=== PATIENT | female | born 1995 | race American Indian/Alaskan Native ===

== ENCOUNTER 2016-10-21 22:18 | Emergency (ER) | payer MEDICAID ==
[2016-10-21] MEDS ORDERED: ATIVAN IM PRN (23:27)
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
[2016-10-21 23:48] LABS: Hemoglobin 12.7 gm/dl (10.1-14.3); White Blood Count 10.6 K/mm3 (4.5-11.0)
[2016-10-22 00:05] LABS: Alanine Aminotransferase 12 units/L (7-56); Albumin/Globulin Ratio 1.1 %; Alkaline Phosphatase 90 units/L (35-129); Anion Gap 19 mmol/L; Bilirubin,Total 0.3 mg/dL (0.1-1.2); Blood Urea Nitrogen 10 mg/dL (7-17); Carbon Dioxide 21 mmol/L (22-30); Chloride 101.5 mmol/L (98-107); Glucose 143 mg/dL (65-100); Potassium 4.4 mmol/L (3.6-5.0); Sodium 137 mmol/L (137-145); Total Protein 7.5 g/dL (6.3-8.2)
[2016-10-22 00:26] LABS: Hematocrit 39.8 % (30.3-42.9); Mean Corpuscular HGB Conc 31 % (30-34); Mean Corpuscular Hemoglobin 30 pg (28-32); Mean Corpuscular Volume 96 fl (79-97); Platelet Count 257 K/mm3 (140-440); Red Blood Count 4.17 M/mm3 (3.65-5.03); Red Cell Distribution Width 12.4 % (13.2-15.2)
[2016-10-22 00:31] LABS: Urine Drugs of Abuse Note Disclamer
[2016-10-22 01:15] LABS: Bacteria,Urine 1+ /HPF (Negative); Bilirubin,Urine NEG (Negative); Blood,Urine MOD (Negative); Ketones,Urine NEG (Negative); Leukocyte Esterase,Urine SM (Negative); Mucus,Urine FEW /HPF; Nitrite,Urine NEG (Negative); Protein,Urine <15 mg/dL mg/dL (Negative); Urobilinogen,Urine < 2.0 mg/dL (<2.0)
[2016-10-22] MEDS ORDERED: PROVENTIL IH PRN (03:04)
[2016-10-22] MEDS ORDERED: NAPROSYN PO PRN (03:04)
[2016-10-22] MEDS ORDERED: HALDOL PO SCH (10:00)
[2016-10-22] MEDS ORDERED: NON-FORMULARY (Abacavir/Dolutegravir/Lamivudi [Triumeq Tablet] 1 EACH) PO SCH (10:00)
--- NOTE | 2016-10-22 12:42 | Consultation ---
History of Present Illness - Reason for Consult Consult date: 10/22/16 Reason for consult: suicide attempt - Chief Complaint Chief complaint: suicide attempt - History of Present Psychiatric Illness This is a 26 year old female with PPH of MDD who presents to the ER after a suicide attempt via OD on 10-12 packets of [place] [employer]. She has both acute and chronic social stressors that have exacerbated her current condition. Current symptoms include: anhedonia, crying spells, social withdrawal, SI, low/ sad moods, and a sense of hopelessness. Medications and Allergies Allergies Allergy/AdvReac Type Severity Reaction Status Date / Time Fish Containing Products Allergy Rash Verified 09/19/14 09:38 beans Allergy Rash Uncoded 09/19/14 09:38 Home Medications Medication Instructions Recorded Confirmed Last Taken Type ALBUTEROL NEB's [Proventil] 90 mcg IH Q6H PRN 02/19/16 10/22/16 10/21/16 History Abacavir/Dolutegravir/Lamivudi 1 each PO QDAY 02/19/16 10/22/16 10/21/16 History [Triumeq Tablet] Haloperidol [Haldol] 10 mg PO DAILY 05/31/16 10/22/16 10/22/16 History Prazosin [Minipress] 3 mg PO HS 05/31/16 10/22/16 10/21/16 History Naproxen [Naprosyn TAB] 500 mg PO BID #20 tablet 06/08/16 10/22/16 10/22/16 Rx Active Meds: Active Medications Albuterol (Proventil) 0.09 mg IH Q6H PRN PRN Reason: Wheezing Haloperidol (Haldol) 10 mg PO DAILY [facility] Last Admin: 10/22/16 10:27 Dose: 10 mg Lorazepam (Ativan) 2 mg IM Q4HR PRN PRN Reason: Agitation Miscellaneous Medication (Abacavir/Dolutegravir/Lamivudi [Triumeq Tablet]) 1 each PO QDAY [facility] Naproxen (Naprosyn) 500 mg PO BID PRN PRN Reason: Pain Prazosin HCl (Minipress) 3 mg PO [facility] Mental Status Exam - Vital signs Last Vital Signs Temp 98.6 F 10/21/16 23:26 Pulse 85 10/21/16 23:26 Resp 16 10/21/16 23:26 BP 110/73 10/21/16 23:26 Pulse Ox - Exam Orientation: time, place Affect: depressed, anxious Mood: hopeless, anxious Thought Process: Intact Perceptions: none Speech: slow Concentration: distractible Motor activity: lethargic Level of consciousness: sedated Memory: Intact Sleep Symptoms: Insomnia Appetite: decreased Interaction: guarded Results Result Diagrams: 10/21/16 23:37 10/21/16 23:37 Abnormal lab results 10/21/16 10/21/16 10/21/16 Range/Units 00:15 23:37 23:37 RDW (13.2-15.2) % Carbon Dioxide 21 L (22-30) mmol/L Creatinine 0.5 L (0.7-1.2) mg/dL Glucose 143 H (65-100) mg/dL Urine WBC (Auto) 10.0 H (0.0-6.0) /HPF Salicylates < 0.3 L (2.8-20.0) mg/dL 10/21/16 Range/Units 23:37 RDW 12.4 L (13.2-15.2) % Carbon Dioxide (22-30) mmol/L Creatinine (0.7-1.2) mg/dL Glucose (65-100) mg/dL Urine WBC (Auto) (0.0-6.0) /HPF Salicylates (2.8-20.0) mg/dL All other labs normal. Assessment and Plan Assessment and plan: This salicylate and acetaminophen levels were reviewed and they were not elevated. UDS is negative for other illicit substances. Renal functioning is not compromised. She remains withdrawn and depressed. Recommendation: - continue 1013 - transfer to inpatient psychiatric facility for treatment of MDD, severe recurrent with a recent SA via OD
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
[2016-10-22 20:53] VITALS: BP 115/61
[2016-10-22] MEDS ORDERED: MINIPRESS PO SCH (22:00)
== END 2016-10-23 04:24 ==
LOC: ED 22:18
DX: R45.851 Suicidal ideations (principal); R44.0 Auditory hallucinations; F32.9 Major depressive disorder, single episode, unspecified; J45.909 Unspecified asthma, uncomplicated; F20.9 Schizophrenia, unspecified; F31.9 Bipolar disorder, unspecified; F12.10 Cannabis abuse, uncomplicated; Z91.013 Allergy to seafood; Z91.018 Allergy to other foods; F17.200 Nicotine dependence, unspecified, uncomplicated; Z21 Asymptomatic human immunodeficiency virus [HIV] infection status
CPT/HCPCS: 36415; 80053; 80307; 81001; 81025; 82550; 85027; 99285; G0480; 80320

== ENCOUNTER 2017-04-25 22:09 | Emergency (ER) | payer MEDICAID ==
[2017-04-25 23:15] LABS: Basophils % (Auto) 0.3 % (0.0-1.8); Eosinophils % (Auto) 0.4 % (0.0-4.3); Hematocrit 38.4 % (30.3-42.9); Hemoglobin 12.9 gm/dl (10.1-14.3); Mean Corpuscular HGB Conc 33 % (30-34); Mean Corpuscular Hemoglobin 31 pg (28-32); Mean Corpuscular Volume 92 fl (79-97); Platelet Count 173 K/mm3 (140-440); Red Blood Count 4.16 M/mm3 (3.65-5.03); Red Cell Distribution Width 13.3 % (13.2-15.2); White Blood Count 8.2 K/mm3 (4.5-11.0)
[2017-04-25 23:38] LABS: Alanine Aminotransferase 10 units/L (7-56); Albumin 4.3 g/dL (3.9-5); Albumin/Globulin Ratio 1.2 %; Alkaline Phosphatase 69 units/L (35-129); Anion Gap 19 mmol/L; Blood Urea Nitrogen 6 mg/dL (7-17); Calcium 9.3 mg/dL (8.4-10.2); Carbon Dioxide 22 mmol/L (22-30); Chloride 104.4 mmol/L (98-107); Glucose 122 mg/dL (65-100); Potassium 3.3 mmol/L (3.6-5.0); Sodium 142 mmol/L (137-145)
[2017-04-25 23:45] LABS: Bilirubin,Direct < 0.2 mg/dL (0-0.2); Bilirubin,Indirect 0.3 mg/dL
[2017-04-26 00:41] LABS: Bacteria,Urine 1+ /HPF (Negative); Bilirubin,Urine NEG (Negative); Blood,Urine NEG (Negative); Ketones,Urine NEG (Negative); Leukocyte Esterase,Urine SM (Negative); Mucus,Urine 2+ /HPF; Nitrite,Urine NEG (Negative); Protein,Urine <15 mg/dL mg/dL (Negative)
--- NOTE | 2017-04-26 15:58 | Emergency Department Report ---
ED General Adult HPI - General Chief complaint: Rectal Pain Stated complaint: RECTAL PAIN Time Seen by Provider: 04/26/17 15:40 Source: patient Mode of arrival: Ambulatory Limitations: No Limitations - History of Present Illness Initial comments: Patient has a history of HIV. She states that she has never had any rectal infection in the past. She also has a history of schizophrenia and bipolar sorter. She denies any recent fever. She states that over the past few days she seen a yellow discharge from her rectum. She denies any rash or maggie mass or abscess. He does not complain of any vaginal discharge. -: Gradual, days(s) Location: buttocks (rectal) Radiation: non-radiation Severity scale (0 -10): 0 Quality: aching Consistency: intermittent, now resolved Improves with: none Worsens with: none Associated Symptoms: denies other symptoms Treatments Prior to Arrival: none - Related Data Home Medications Medication Instructions Recorded Confirmed Last Taken ALBUTEROL NEB's [Proventil] 90 mcg IH Q6H PRN 02/19/16 10/22/16 10/21/16 Abacavir/Dolutegravir/Lamivudi 1 each PO QDAY 02/19/16 10/22/16 10/21/16 [Triumeq Tablet] Haloperidol [Haldol] 10 mg PO DAILY 05/31/16 10/22/16 10/22/16 Prazosin [Minipress] 3 mg PO HS 05/31/16 10/22/16 10/21/16 Previous Rx's Medication Instructions Recorded Last Taken Type Naproxen [Naprosyn TAB] 500 mg PO BID #20 tablet 06/08/16 10/22/16 Rx Sulfamethoxazole/Trimethoprim 1 each PO BID #14 tablet 04/26/17 Unknown Rx [Bactrim DS TAB] traMADol [Ultram] 50 mg PO Q6HR PRN #10 tablet 04/26/17 Unknown Rx Allergies Allergy/AdvReac Type Severity Reaction Status Date / Time Fish Containing Products Allergy Rash Verified 09/19/14 09:38 beans Allergy Rash Uncoded 09/19/14 09:38 ED Review of Systems ROS: Stated complaint: RECTAL PAIN Other details as noted in HPI Constitutional: denies: chills, fever Eyes: denies: eye pain, eye discharge, vision change ENT: denies: ear pain, throat pain Respiratory: denies: cough, shortness of breath, wheezing Cardiovascular: denies: chest pain, palpitations Endocrine: no symptoms reported Gastrointestinal: as per HPI. denies: abdominal pain, nausea, diarrhea (denies diarrhea) Genitourinary: denies: urgency, dysuria, discharge Musculoskeletal: denies: back pain, joint swelling, arthralgia Skin: denies: rash, lesions Neurological: denies: headache, weakness, paresthesias Psychiatric: denies: anxiety, depression Hematological/Lymphatic: denies: easy bleeding, easy bruising ED Past Medical Hx - Past Medical History Hx Psychiatric Treatment: Yes (multiple IP stays, ANXIETY; schizophrenia; bipolar; PTSD; depression) Hx Asthma: Yes Hx HIV: Yes Additional medical history: Tetanus up to date - Surgical History Additional Surgical History: nexplanon at 18 years old ( control) - Social History Smoking Status: Former Smoker Substance Use Type: None - Medications Home Medications: Home Medications Medication Instructions Recorded Confirmed Last Taken Type ALBUTEROL NEB's [Proventil] 90 mcg IH Q6H PRN 02/19/16 10/22/16 10/21/16 History Abacavir/Dolutegravir/Lamivudi 1 each PO QDAY 02/19/16 10/22/16 10/21/16 History [Triumeq Tablet] Haloperidol [Haldol] 10 mg PO DAILY 05/31/16 10/22/16 10/22/16 History Prazosin [Minipress] 3 mg PO HS 05/31/16 10/22/16 10/21/16 History Naproxen [Naprosyn TAB] 500 mg PO BID #20 tablet 06/08/16 10/22/16 10/22/16 Rx Sulfamethoxazole/Trimethoprim 1 each PO BID #14 tablet 04/26/17 Unknown Rx [Bactrim DS TAB] traMADol [Ultram] 50 mg PO Q6HR PRN #10 tablet 04/26/17 Unknown Rx ED Physical Exam - General Limitations: No Limitations General appearance: alert, in no apparent distress - Head Head exam: Present: atraumatic, normocephalic - Eye Eye exam: Present: normal appearance. Absent: scleral icterus - ENT ENT exam: Present: normal exam, mucous membranes moist - Neck Neck exam: Present: normal inspection - Respiratory Respiratory exam: Present: normal lung sounds bilaterally. Absent: respiratory distress - Cardiovascular Cardiovascular Exam: Present: regular rate, normal rhythm. Absent: systolic murmur, diastolic murmur, rubs, gallop - GI/Abdominal GI/Abdominal exam: Present: soft, normal bowel sounds. Absent: distended, tenderness, guarding, rebound, rigid - Rectal Rectal exam: Present: normal inspection, normal rectal tone, other (didn't see any maggie evidence of infection mild tenderness on digital) - Extremities Exam Extremities exam: Present: normal inspection - Back Exam Back exam: Present: normal inspection - Neurological Exam Neurological exam: Present: alert, oriented X3, CN II-XII intact. Absent: motor sensory deficit - Psychiatric Psychiatric exam: Present: normal affect, normal mood - Skin Skin exam: Present: warm, dry, intact, normal color. Absent: rash ED Course Vital Signs 04/25/17 22:29 Temperature 98.9 F Pulse Rate 119 H Respiratory 18 Rate Blood Pressure 138/92 O2 Sat by Pulse 97 Oximetry - Reevaluation(s) Reevaluation #1: We'll be treated empirically for proctitis. Cultures sent 04/26/17 16:38 04/26/17 16:38 ED Medical Decision Making - Lab Data Result diagrams: 04/25/17 22:49 04/25/17 22:49 Laboratory Results - last 24 hr 04/25/17 04/25/17 04/25/17 22:49 22:49 22:49 WBC 8.2 RBC 4.16 Hgb 12.9 Hct 38.4 MCV 92 MCH 31 MCHC 33 RDW 13.3 Plt Count 173 Lymph % (Auto) 28.7 Iron % (Auto) 8.3 H Eos % (Auto) 0.4 Baso % (Auto) 0.3 Lymph # 2.4 Iron # 0.7 Eos # 0.0 Baso # 0.0 Seg Neutrophils % 62.3 Seg Neutrophils # 5.1 Sodium 142 Potassium 3.3 L Chloride 104.4 Carbon Dioxide 22 Anion Gap 19 BUN 6 L Creatinine 0.4 L Estimated GFR > 60 BUN/Creatinine Ratio 15.00 Glucose 122 H Lactic Acid 1.30 Calcium 9.3 Total Bilirubin 0.50 Direct Bilirubin < 0.2 Indirect Bilirubin 0.3 AST 14 ALT 10 Alkaline Phosphatase 69 Total Protein 8.0 Albumin 4.3 Albumin/Globulin Ratio 1.2 Urine Color Urine Turbidity Urine pH Ur Specific [place] Urine Protein Urine Glucose (UA) Urine Ketones Urine Blood Urine Nitrite Urine Bilirubin Urine Urobilinogen Ur Leukocyte Esterase Urine WBC (Auto) Urine RBC (Auto) U Epithel Cells (Auto) Urine Bacteria (Auto) Urine Mucus Urine HCG, Qual 04/25/17 23:00 WBC RBC Hgb Hct MCV MCH MCHC RDW Plt Count Lymph % (Auto) Iron % (Auto) Eos % (Auto) Baso % (Auto) Lymph # Iron # Eos # Baso # Seg Neutrophils % Seg Neutrophils # Sodium Potassium Chloride Carbon Dioxide Anion Gap BUN Creatinine Estimated GFR BUN/Creatinine Ratio Glucose Lactic Acid Calcium Total Bilirubin Direct Bilirubin Indirect Bilirubin AST ALT Alkaline Phosphatase Total Protein Albumin Albumin/Globulin Ratio Urine Color Yellow Urine Turbidity Clear Urine pH 7.0 Ur Specific [place] 1.019 Urine Protein <15 mg/dl Urine Glucose (UA) Neg Urine Ketones Neg Urine Blood Neg Urine Nitrite Neg Urine Bilirubin Neg Urine Urobilinogen 2.0 Ur Leukocyte Esterase Sm Urine WBC (Auto) 6.0 Urine RBC (Auto) 1.0 U Epithel Cells (Auto) 3.0 Urine Bacteria (Auto) 1+ Urine Mucus 2+ Urine HCG, Qual Negative Critical care attestation.: If time is entered above; I have spent that time in minutes in the direct care of this critically ill patient, excluding procedure time. ED Disposition Clinical Impression: History of schizophrenia, Proctitis, HIV positive Disposition: - TO HOME OR SELFCARE Is pt being admited?: No Does the pt Need Aspirin: No Condition: Stable Instructions: Proctitis (ED) Additional Instructions: Follow-up with your Infectious disease clinic. Return any acute change or problem or if you have any fever or other significant symptoms. Prescriptions: Sulfamethoxazole/Trimethoprim [Bactrim DS TAB] 1 each PO BID #14 tablet traMADol [Ultram] 50 mg PO Q6HR PRN #10 tablet PRN Reason: Pain Referrals: PRIMARY CARE, [Primary Care Provider] - 3-5 Days usual, infectious disease clinic [Other] - 2-3 Days Time of Disposition: 16:43
[2017-04-26] MEDS ORDERED: ROCEPHIN/NS 1 GM/50 ML 1 GM/50 ML BAG IV ONE (16:39)
[2017-04-26] MEDS ORDERED: NACL 0.9% 1000 ML 1,000 ML IV ONE (16:39)
[2017-04-26 17:41] VITALS: BP 118/65
== END 2017-04-26 18:43 | disposition home or self-care (01) ==
LOC: ED 22:09
DX: K62.89 Other specified diseases of anus and rectum (principal); F20.9 Schizophrenia, unspecified; F41.9 Anxiety disorder, unspecified; J45.909 Unspecified asthma, uncomplicated; Z87.891 Personal history of nicotine dependence; Z91.013 Allergy to seafood
CPT/HCPCS: 36415; 80048; 80074; 81001; 81025; 82140; 85025; 87040; 87591; 96365; 99283; J0696; J7030

== ENCOUNTER 2017-06-29 12:21 | Emergency (ER) | payer MEDICAID ==
[2017-06-29 12:56] LABS: Urine Drugs of Abuse Note Disclamer
[2017-06-29 13:09] LABS: Bilirubin,Urine NEG (Negative); Blood,Urine NEG (Negative); Ketones,Urine NEG (Negative); Leukocyte Esterase,Urine NEG (Negative); Mucus,Urine 2+ /HPF; Nitrite,Urine NEG (Negative); Protein,Urine <15 mg/dL mg/dL (Negative)
[2017-06-29 13:51] LABS: Basophils % (Auto) 0.3 % (0.0-1.8); Eosinophils % (Auto) 1.8 % (0.0-4.3); Hematocrit 36.2 % (30.3-42.9); Hemoglobin 11.9 gm/dl (10.1-14.3); Mean Corpuscular HGB Conc 33 % (30-34); Mean Corpuscular Hemoglobin 32 pg (28-32); Mean Corpuscular Volume 97 fl (79-97); Platelet Count 220 K/mm3 (140-440); Red Blood Count 3.74 M/mm3 (3.65-5.03); Red Cell Distribution Width 12.4 % (13.2-15.2); White Blood Count 8.6 K/mm3 (4.5-11.0)
--- NOTE | 2017-06-29 13:53 | Emergency Department Report ---
ED General Adult HPI - General Chief complaint: Overdose Stated complaint: TOOK 10 500MG OF TYLENOL/6 ASPIRIN Time Seen by Provider: 06/29/17 13:32 Source: patient, EMS (ems notes not available at time of chart dictation), RN notes reviewed, old records reviewed Mode of arrival: Ambulatory Limitations: No Limitations - History of Present Illness Initial comments: This is a 22-year-old female. Primary care doctor is Dr. De Paz and her psychiatrist is Dr. Bosch Past medical history includes bipolar disorder, PTSD, anxiety, asthma, schizophrenia and HIV. Patient is sent to the ER for medical clearance after overdose. Patient reports that her chest and right knee were hurting her last night. Her chest pain started at 4:00 yesterday afternoon. It radiates to the back. She reports that it feels like "someone stepping on it." The chest pain does not radiate anywhere. There is no vomiting or diaphoresis. There is no posterior leg pain. Patient reports having a nexplanon device for contraception. She also complains of chronic right-sided knee pain. The knee pain is secondary to "not having any cartilage in it." Patient reports that at 3 to 4:00 AM, she took 10 tablets of Tylenol, 500 mg. She also reports taking 6 tablets of aspirin, 324 mg. She is adamant that there were no other coingestions, that she was not trying to hurt herself or kill herself. She reports that she was taking these medications for chest pain and right knee pain. She reports that she was seen by her director of casework earlier on today, and was sent to ER for medical clearance, as she then began to have abdominal pain. Abdominal pain was periumbilical, epigastric, in the right lower quadrant. Patient denies irritative and obstructive urinary symptoms. She reports "I am having sex, and I am worried than I'm ." -: Gradual Location: chest, abdomen, right, lower extremity Radiation: non-radiation Severity scale (0 -10): 1 Quality: aching Consistency: intermittent Improves with: none Worsens with: none Associated Symptoms: chest pain - Related Data Home Medications Medication Instructions Recorded Confirmed Last Taken ALBUTEROL NEB's [Proventil] 90 mcg IH Q6H PRN 02/19/16 10/22/16 10/21/16 Abacavir/Dolutegravir/Lamivudi 1 each PO QDAY 02/19/16 10/22/16 10/21/16 [Triumeq Tablet] Haloperidol [Haldol] 10 mg PO DAILY 05/31/16 10/22/16 10/22/16 Prazosin [Minipress] 3 mg PO HS 05/31/16 10/22/16 10/21/16 Previous Rx's Medication Instructions Recorded Last Taken Type Naproxen [Naprosyn TAB] 500 mg PO BID #20 tablet 06/08/16 10/22/16 Rx Sulfamethoxazole/Trimethoprim 1 each PO BID #14 tablet 04/26/17 Unknown Rx [Bactrim DS TAB] traMADol [Ultram] 50 mg PO Q6HR PRN #10 tablet 04/26/17 Unknown Rx Allergies Allergy/AdvReac Type Severity Reaction Status Date / Time Fish Containing Products Allergy Rash Verified 09/19/14 09:38 beans Allergy Rash Uncoded 09/19/14 09:38 ED Review of Systems ROS: Stated complaint: TOOK 10 500MG OF TYLENOL/6 ASPIRIN Other details as noted in HPI Constitutional: denies: fever Eyes: denies: vision change ENT: denies: epistaxis Respiratory: denies: cough Cardiovascular: chest pain Gastrointestinal: abdominal pain Genitourinary: denies: dysuria Musculoskeletal: arthralgia, myalgia Skin: denies: lesions Neurological: denies: headache Psychiatric: denies: homicidal thoughts, suicidal thoughts ED Past Medical Hx - Past Medical History Previous Medical History?: Yes Hx Hypertension: No Hx CVA: No Hx Heart Attack/AMI: No Hx Congestive Heart Failure: No Hx Diabetes: No Hx Deep Vein Thrombosis: No Hx Pulmonary Embolism: No Hx GERD: No Hx Liver Disease: No Hx Renal Disease: No Hx of Cancer: No Hx Sickle Cell Disease: No Hx Arthritis: No Hx Headaches / Migraines: No Hx Seizures: No Hx Kidney Stones: No Hx Psychiatric Treatment: Yes (multiple IP stays, ANXIETY; schizophrenia; bipolar; PTSD; depression) Hx Asthma: Yes Hx COPD: No Hx Tuberculosis: No Hx Dementia: No Hx HIV: Yes Additional medical history: Tetanus up to date - Surgical History Past Surgical History?: Yes Hx Coronary Stent: No Hx Open Heart Surgery: No Hx Pacemaker: No Hx Internal Defibrillator: No Hx Cholecystectomy: No Hx Appendectomy: No Hx Breast Surgery: No Additional Surgical History: nexplanon at 18 years old ( control) - Social History Smoking Status: Current Every Day Smoker Substance Use Type: Marijuana - Medications Home Medications: Home Medications Medication Instructions Recorded Confirmed Last Taken Type ALBUTEROL NEB's [Proventil] 90 mcg IH Q6H PRN 02/19/16 10/22/16 10/21/16 History Abacavir/Dolutegravir/Lamivudi 1 each PO QDAY 02/19/16 10/22/16 10/21/16 History [Triumeq Tablet] Haloperidol [Haldol] 10 mg PO DAILY 05/31/16 10/22/16 10/22/16 History Prazosin [Minipress] 3 mg PO HS 05/31/16 10/22/16 10/21/16 History Naproxen [Naprosyn TAB] 500 mg PO BID #20 tablet 06/08/16 10/22/16 10/22/16 Rx Sulfamethoxazole/Trimethoprim 1 each PO BID #14 tablet 04/26/17 Unknown Rx [Bactrim DS TAB] traMADol [Ultram] 50 mg PO Q6HR PRN #10 tablet 04/26/17 Unknown Rx ED Physical Exam - General Limitations: No Limitations General appearance: alert, in no apparent distress - Head Head exam: Present: atraumatic, normocephalic - Eye Eye exam: Present: normal appearance, EOMI. Absent: nystagmus - ENT ENT exam: Present: normal exam, normal orophraynx, mucous membranes moist, normal external ear exam - Neck Neck exam: Present: normal inspection, full ROM - Respiratory Respiratory exam: Present: normal lung sounds bilaterally. Absent: respiratory distress, wheezes, rales, rhonchi, stridor, chest wall tenderness, accessory muscle use, decreased breath sounds, prolonged expiratory - Cardiovascular Cardiovascular Exam: Present: regular rate, normal rhythm, normal heart sounds. Absent: bradycardia, tachycardia, irregular rhythm, systolic murmur, diastolic murmur, rubs, gallop - GI/Abdominal GI/Abdominal exam: Present: soft, tenderness, normal bowel sounds, other (there is right lower quadrant tenderness to deep palpation.). Absent: distended, guarding, rebound, rigid, pulsatile mass - Extremities Exam Extremities exam: Present: normal inspection, full ROM, normal capillary refill. Absent: pedal edema, joint swelling, calf tenderness - Back Exam Back exam: Present: normal inspection, full ROM. Absent: tenderness, CVA tenderness (R), CVA tenderness (L), muscle spasm, paraspinal tenderness, vertebral tenderness - Neurological Exam Neurological exam: Present: alert, oriented X3, normal gait, other (Extraocular movements intact. Tongue midline. No facial droop. Facial sensation intact to light touch in the V1, V2, V3 distribution bilaterally. 5 and 5 strength in 4 extremities.. Sensation is intact to light touch in 4 extremities.). Absent : motor sensory deficit - Psychiatric Psychiatric exam: Present: normal affect, normal mood. Absent: homicidal ideation, suicidal ideation - Skin Skin exam: Present: warm, dry, intact, normal color. Absent: rash ED Course Vital Signs 06/29/17 06/29/17 06/29/17 12:26 14:19 14:24 Temperature 98.1 F 98.3 F Pulse Rate 69 60 65 Respiratory 18 16 18 Rate Blood Pressure 112/64 Blood Pressure 112/64 109/59 [Right] O2 Sat by Pulse 100 99 100 Oximetry 06/29/17 14:25 Temperature Pulse Rate Respiratory 16 Rate Blood Pressure Blood Pressure [Right] O2 Sat by Pulse 100 Oximetry - Reevaluation(s) Reevaluation #1: 06/29/17 14:08 Differential diagnosis, including but not limited to: Acute coronary syndrome, pneumonia, pulmonary embolus, costochondritis, pneumothorax, appendicitis, renal colic, ovarian cyst, urinary tract infection, overdose Assessment and plan: 22-year-old female sent to the ER for medical clearance after overdose, reports that she is not homicidal or suicidal, she is not having hallucinations, she is currently sober at this time, with a GCS of 15, and anion score of 0. There is no indication for 1013 at this time. Presented more than one hour after ingestion (ingestion was 11 hours ago), patient is therefore not a charcoal candidate at this time. Chest pain is atypical, present for almost 24 hours, low risk by MIRTA score, low risk by heart score, low risk by well's criteria, d-dimer pending, patient' s only risk factor for thromboembolic disease is NEXPLANON. Serum toxicology pending at this time. X-ray of the chest is pending at this time. We will consult mental health follow in conjunction. Reevaluation #2: 06/29/17 15:53 Vital signs remained stable. Repeat EKG unremarkable and unchanged. X-ray of the chest is negative. Patient found to be not , d-dimer is negative, no tachycardia or hypoxia. Nursing staff contacted the [facility] in the made the following recommendations: " Per Jo at [facility] [facility], pt does not need treatment for Acetaminophen, but need repeat on Aspirin level and check liver enzyme, MD Serrano informed." Liver enzymes pending, repeat aspirin level is pending. Repeat troponin is pending. CT scan of the abdomen and pelvis is pending. Patient is also seen in conjunction with crisis and mental health, and they recommended 1013 because the patient has recently overdosed. Reevaluation #3: 06/29/17 16:[address] scan of the abdomen and pelvis is negative. Repeat aspirin level is decreasing. Reevaluation #4: 06/29/17 20:[address] scan of the abdomen and pelvis negative. Case rediscussed with the [facility], and as per nursing documentation: "Per Jo at [facility], pt need no treatment since she is asymptomatic, and liver enzymes are normal " At this point in time, the patient is medically suitable to be seen, consult today and evaluated by psychiatry, and admitted to the psychiatric service if necessary. The crisis team is informed Abdomen soft on repeat examination. The patient appears to be no distress at this time, vital signs are stable. 06/29/17 20:01 ED Medical Decision Making - Lab Data Result diagrams: 06/29/17 13:39 06/29/17 13:39 Vital Signs 06/29/17 12:26 Temperature 98.1 F Pulse Rate 69 Respiratory 18 Rate Blood Pressure 112/64 Blood Pressure 112/64 [Right] O2 Sat by Pulse 100 Oximetry Lab Results 06/29/17 06/29/17 06/29/17 Range/Units 12:45 12:45 12:45 WBC (4.5-11.0) K/mm3 RBC (3.65-5.03) M/mm3 Hgb (10.1-14.3) gm/dl Hct (30.3-42.9) % MCV (79-97) fl MCH (28-32) pg MCHC (30-34) % RDW (13.2-15.2) % Plt Count (140-440) K/mm3 Lymph % (Auto) (13.4-35.0) % [place] % (Auto) (0.0-7.3) % Eos % (Auto) (0.0-4.3) % Baso % (Auto) (0.0-1.8) % Lymph # (1.2-5.4) K/mm3 [place] # (0.0-0.8) K/mm3 Eos # (0.0-0.4) K/mm3 Baso # (0.0-0.1) K/mm3 Seg Neutrophils % (40.0-70.0) % Seg Neutrophils # (1.8-7.7) K/mm3 Sodium (137-145) mmol/L Potassium (3.6-5.0) mmol/L Chloride (98-107) mmol/L Carbon Dioxide (22-30) mmol/L Anion Gap mmol/L BUN (7-17) mg/dL Creatinine (0.7-1.2) mg/dL Estimated GFR ml/min BUN/Creatinine Ratio % Glucose (65-100) mg/dL Calcium (8.4-10.2) mg/dL Urine Color Yellow (Yellow) Urine Turbidity Clear (Clear) Urine pH 5.0 (5.0-7.0) Ur Specific [place] 1.036 H (1.003-1.030) Urine Protein <15 mg/dl (Negative) mg/dL Urine Glucose (UA) Neg (Negative) mg/dL Urine Ketones Neg (Negative) mg/dL Urine Blood Neg (Negative) Urine Nitrite Neg (Negative) Urine Bilirubin Neg (Negative) Urine Urobilinogen 2.0 (<2.0) mg/dL Ur Leukocyte Esterase Neg (Negative) Urine WBC (Auto) 1.0 (0.0-6.0) /HPF Urine RBC (Auto) 2.0 (0.0-6.0) /HPF U Epithel Cells (Auto) 1.0 (0-13.0) /HPF Urine Mucus 2+ /HPF Urine HCG, Qual Negative (Negative) Urine Opiates Screen Presumptive negative Urine Methadone Screen Presumptive negative Ur Barbiturates Screen Presumptive negative Ur Phencyclidine Scrn Presumptive negative Ur Amphetamines Screen Presumptive negative U Benzodiazepines Scrn Presumptive negative Urine Cocaine Screen Presumptive negative U Marijuana (THC) Screen Presumptive negative Drugs of Abuse Note Disclamer Plasma/Serum Alcohol (0-0.07) gm% 06/29/17 06/29/17 06/29/17 Range/Units 13:39 13:39 13:39 WBC 8.6 (4.5-11.0) K/mm3 RBC 3.74 (3.65-5.03) M/mm3 Hgb 11.9 (10.1-14.3) gm/dl Hct 36.2 (30.3-42.9) % MCV 97 (79-97) fl MCH 32 (28-32) pg MCHC 33 (30-34) % RDW 12.4 L (13.2-15.2) % Plt Count 220 (140-440) K/mm3 Lymph % (Auto) 35.4 H (13.4-35.0) % [place] % (Auto) 10.2 H (0.0-7.3) % Eos % (Auto) 1.8 (0.0-4.3) % Baso % (Auto) 0.3 (0.0-1.8) % Lymph # 3.0 (1.2-5.4) K/mm3 [place] # 0.9 H (0.0-0.8) K/mm3 Eos # 0.2 (0.0-0.4) K/mm3 Baso # 0.0 (0.0-0.1) K/mm3 Seg Neutrophils % 52.3 (40.0-70.0) % Seg Neutrophils # 4.5 (1.8-7.7) K/mm3 Sodium 142 (137-145) mmol/L Potassium 3.7 (3.6-5.0) mmol/L Chloride 105.8 (98-107) mmol/L Carbon Dioxide 25 (22-30) mmol/L Anion Gap 15 mmol/L BUN 8 (7-17) mg/dL Creatinine 0.5 L (0.7-1.2) mg/dL Estimated GFR > 60 ml/min BUN/Creatinine Ratio 16 % Glucose 78 (65-100) mg/dL Calcium 8.8 (8.4-10.2) mg/dL Urine Color (Yellow) Urine Turbidity (Clear) Urine pH (5.0-7.0) Ur Specific [place] (1.003-1.030) Urine Protein (Negative) mg/dL Urine Glucose (UA) (Negative) mg/dL Urine Ketones (Negative) mg/dL Urine Blood (Negative) Urine Nitrite (Negative) Urine Bilirubin (Negative) Urine Urobilinogen (<2.0) mg/dL Ur Leukocyte Esterase (Negative) Urine WBC (Auto) (0.0-6.0) /HPF Urine RBC (Auto) (0.0-6.0) /HPF U Epithel Cells (Auto) (0-13.0) /HPF Urine Mucus /HPF Urine HCG, Qual (Negative) Urine Opiates Screen Urine Methadone Screen Ur Barbiturates Screen Ur Phencyclidine Scrn Ur Amphetamines Screen U Benzodiazepines Scrn Urine Cocaine Screen U Marijuana (THC) Screen Drugs of Abuse Note Plasma/Serum Alcohol < 0.01 (0-0.07) gm% - EKG Data -: EKG Interpreted by Me - EKG Data 06/29/17 14:10 EKG #1: Normal sinus, 60 bpm, normal intervals, normal axis, not morphologically consistent with ST elevation myocardial infarction. - Radiology Data Radiology results: pending, report reviewed, image reviewed X-ray the chest is negative for acute disease CT scan of the abdomen and pelvis is pending. CT scan of the abdomen and pelvis is negative for acute disease. Critical care attestation.: If time is entered above; I have spent that time in minutes in the direct care of this critically ill patient, excluding procedure time. ED Disposition Clinical Impression: Medical clearance for psychiatric admission, Overdose, Abdominal pain Disposition: [id number] PSY HOSP/PSY UNIT Is pt being admited?: No Does the pt Need Aspirin: No Condition: Good Referrals: PRIMARY CARE, [Primary Care Provider] - 3-5 Days
[2017-06-29 14:05] LABS: Anion Gap 15 mmol/L; BUN/Creatinine Ratio 16; Blood Urea Nitrogen 8 mg/dL (7-17); Calcium 8.8 mg/dL (8.4-10.2); Carbon Dioxide 25 mmol/L (22-30); Chloride 105.8 mmol/L (98-107); Glucose 78 mg/dL (65-100); Potassium 3.7 mmol/L (3.6-5.0); Sodium 142 mmol/L (137-145)
--- NOTE | 2017-06-29 14:32 | XRay Report ---
AP CHEST: History: Chest pain. AP view of the chest demonstrates a normal mediastinal and cardiac contour with clear lungs and normal bony and soft tissue structures. IMPRESSION: Normal AP chest.
[2017-06-29] MEDS ORDERED: ATIVAN IM PRN (15:17)
[2017-06-29] MEDS ORDERED: HALDOL IM PRN (15:17)
[2017-06-29 15:31] LABS: INR 1.04 (0.87-1.13)
[2017-06-29 16:37] LABS: Alanine Aminotransferase 13 units/L (7-56); Albumin 4.1 g/dL (3.9-5); Albumin/Globulin Ratio 1.2 %; Alkaline Phosphatase 75 units/L (35-129); Total Protein 7.4 g/dL (6.3-8.2)
[2017-06-29 16:43] LABS: Bilirubin,Direct < 0.2 mg/dL (0-0.2); Bilirubin,Indirect 0.3 mg/dL
--- NOTE | 2017-06-29 16:45 | Cat Scan Report ---
CT of the abdomen and pelvis with IV contrast. History: Lower abdominal pain. Findings: The liver, spleen, pancreas, and gallbladder appear normal. The kidneys are normal in size and configuration with no evidence of mass or hydronephrosis. There are no pelvic masses or abnormal fluid collections. The there no mesenteric inflammatory changes. There is no radiographic evidence of appendicitis. Impression: Normal study.
[2017-06-30] MEDS ORDERED: NACL 0.9% 1000 ML 1,000 ML IV ONE ×2 (00:19→04:40)
[2017-06-30] MEDS ORDERED: NACL 0.9% 1000 ML 1,000 ML ONE (04:43)
--- NOTE | 2017-06-30 15:03 | Consultation ---
History of Present Illness - Reason for Consult Consult date: 06/30/17 Reason for consult: Mental Health Evaluation Requesting physician: ROBYN COLLINS - Chief Complaint Chief complaint: "I didn't try to overdose" - History of Present Psychiatric Illness Patient is sent to the ER for medical clearance after overdose. Today patient is calm and cooperative during the assessment. She stated that she did not try to kill herself by taking 6 Aspirin and 10 Tylenol prior to her admission to [facility]. She stated that she took the pills because she was experiencing chest and knee pain. She stated that she took 1 Aspirin/1 Tylenol and still having discomfort and decided to take more pills. This patient has a hx of overdose and recently been inpatient ([facility]) 3 weeks ago for overdosing. She denies a manic episode or being depressed. She denies SI/HI's and AVH's. She denies recreational drug use and alcohol consumption (etoh). Patient reports a hx of Bipolar DO, PTSD, and Borderline Personality DO. She stated receiving the monthly Invega injection. Per the patient, she received an injection last week. Medications and Allergies Allergies Allergy/AdvReac Type Severity Reaction Status Date / Time Fish Containing Products Allergy Rash Verified 09/19/14 09:38 beans Allergy Rash Uncoded 09/19/14 09:38 Home Medications Medication Instructions Recorded Confirmed Last Taken Type ALBUTEROL NEB's [Proventil] 90 mcg IH Q6H PRN 02/19/16 10/22/16 10/21/16 History Abacavir/Dolutegravir/Lamivudi 1 each PO QDAY 02/19/16 10/22/16 10/21/16 History [Triumeq Tablet] Haloperidol [Haldol] 10 mg PO DAILY 05/31/16 10/22/16 10/22/16 History Prazosin [Minipress] 3 mg PO HS 05/31/16 10/22/16 10/21/16 History Naproxen [Naprosyn TAB] 500 mg PO BID #20 tablet 06/08/16 10/22/16 10/22/16 Rx Sulfamethoxazole/Trimethoprim 1 each PO BID #14 tablet 04/26/17 Unknown Rx [Bactrim DS TAB] traMADol [Ultram] 50 mg PO Q6HR PRN #10 tablet 04/26/17 Unknown Rx Active Meds: Active Medications Haloperidol Lactate (Haldol) 5 mg IM Q6HR PRN PRN Reason: Agitation Lorazepam (Ativan) 2 mg IM Q4HR PRN PRN Reason: Agitation Past psychiatric history - Past Medical History Past Medical History: HIV/AIDS, other (Asthma) Past Surgical History: Other - past Psychiatric treatment and history Psych: Bipolar, Depression psychiatric treatment history: Seen by [facility] for outpatient psy services. Denies a fam psy hx. - Social History Social history: other (12th grade education) Mental Status Exam - Vital signs Last Vital Signs Temp 98.5 F 06/30/17 07:18 Pulse 89 06/30/17 07:18 Resp 15 06/30/17 07:18 BP 101/59 06/30/17 07:18 Pulse Ox 100 06/30/17 07:18 - Exam Narrative exam: MSE: Appearance: calm, cooperative Behavior: regular eye contact Speech: regular rate and tone Mood: "okay" Affect: congruent to mood Thought Process: circumstantial Thought Content: denies HI/SI's and AVH's Motor Activity: ambulatory Cognition: A/Ox 3 Insight: fair Judgment: fair Results Result Diagrams: 06/29/17 13:39 06/29/17 13:39 All other labs normal. Assessment and Plan Assessment and plan: Impression: history of Bipolar DO/PTSD/Borderline Personality DO. Today patient is calm and cooperative during the assessment. Possible overdose. Recommendation/Plan: Continue 1013. gather collateral information to help determine proper dispo.
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
[2017-07-01] MEDS: PROzac PO SCH (15:54)
[2017-07-02] MEDS: PROzac PO SCH (10:07)
--- NOTE | 2017-07-02 10:20 | Progress Note ---
Subjective - Reason for Consult Consult date: 07/02/17 Reason for consult: Psychiatry Follow-up - Chief Complaint Chief complaint: "I want to leave" Patient is sent to the ER for medical clearance after overdose. Today patient is calm and cooperative during the assessment. She stated having nightmares last night, so her sleep was disturbed. She denies SI/HI's and AVH's. She denies any side effects of her medication. Mental Status Exam - Vital signs Last Vital Signs Temp 98 F 07/02/17 08:54 Pulse 88 07/02/17 08:54 Resp 18 07/02/17 08:54 BP 130/74 07/02/17 08:54 Pulse Ox 100 07/01/17 12:18 - Exam Narrative exam: MSE: Appearance: calm, cooperative Behavior: regular eye contact Speech: regular rate and tone Mood: "okay" Affect: congruent to mood Thought Process: circumstantial Thought Content: denies HI/SI's and AVH's Motor Activity: ambulatory Cognition: A/Ox 3 Insight: fair Judgment: fair Assessment and Plan Impression: History of Bipolar DO/PTSD/Borderline Personality DO. Today patient is calm and cooperative during the assessment. Possible overdose. Recommendation/Plan: Continue 1013 with placement to inpatient psy services. Continue Prozac 20 mg PO Daily for PTSD. Start Prazosin 1 mg PO HS for PTSD symptoms. Discussed possible suicidality/medication induced seth with patient reference Prozac.
[2017-07-02] MEDS ORDERED: MINIPRESS PO SCH (22:00)
--- NOTE | 2017-07-03 10:41 | Progress Note ---
Subjective - Reason for Consult Consult date: 07/03/17 Reason for consult: Psychiatry Follow-up - Chief Complaint Chief complaint: "I am so sorry" Patient is sent to the ER for medical clearance after overdose. Today patient is calm and cooperative during the assessment. She stated that she is still having nightmares during her sleep. She denies SI/HI's and AVH's. She denies any side effects of her medication. Mental Status Exam - Vital signs Last Vital Signs Temp 98.2 F 07/03/17 08:42 Pulse 93 H 07/03/17 08:42 Resp 17 07/03/17 08:42 BP 110/56 07/03/17 08:42 Pulse Ox 99 07/03/17 08:42 - Exam Narrative exam: MSE: Appearance: calm, cooperative Behavior: regular eye contact Speech: regular rate and tone Mood: "okay" Affect: congruent to mood Thought Process: circumstantial Thought Content: denies HI/SI's and AVH's Motor Activity: ambulatory Cognition: A/Ox 3 Insight: fair Judgment: fair Assessment and Plan Impression: History of Bipolar DO/PTSD/Borderline Personality DO. Today patient is calm and cooperative during the assessment. Possible overdose. Recommendation/Plan: Evaluate 1013 in 24 hours to determine proper dispo. Continue Prozac 20 mg PO daily for PTSD. Modify Prazosin to 2 mg PO HS for PTSD symptoms. Discussed possible suicidality/medication induced seth with patient reference Prozac.
[2017-07-03] MEDS: PROzac PO SCH (11:08)
[2017-07-03] MEDS ORDERED: MINIPRESS PO SCH (22:00)
[2017-07-04 07:59] VITALS: BP 96/62
--- NOTE | 2017-07-04 10:28 | Progress Note ---
Subjective - Reason for Consult Consult date: 07/04/17 Reason for consult: Psychiatry Follow-up - Chief Complaint Chief complaint: "I want do that again" Patient is sent to the ER for medical clearance after overdose. Today patient is calm and cooperative during the assessment. She stated that she will do a better job when taking medications. She denies having nightmares last night. She denies SI/HI's and AVH's. She denies any side effects of her medications. Mental Status Exam - Vital signs Last Vital Signs Temp 98.5 F 07/04/17 07:58 Pulse 85 07/04/17 07:58 Resp 18 07/04/17 07:58 BP 96/62 07/04/17 07:58 Pulse Ox 97 07/04/17 07:58 - Exam Narrative exam: MSE: Appearance: calm, cooperative Behavior: regular eye contact Speech: regular rate and tone Mood: "fine" Affect: congruent to mood Thought Process: logical, intact Thought Content: denies HI/SI's and AVH's Motor Activity: ambulatory Cognition: A/Ox 3 Insight: appropriate Judgment: appropriate Assessment and Plan Impression: History of Bipolar DO/PTSD/Borderline Personality DO. Today patient is calm and cooperative during the assessment. Unintentional overdose. Patient is no threat to self. I. This screening and assessment is based on information collected from the following sources: II. SUICIDE RISK SCREENING (within last 30 days): A.) Suicidal thoughts/behaviors: None SUICIDE RISK ASSESSMENT III. FACTORS THAT INCREASE RISK: A.) Demographic and Substance Use Factors: None B.) Current/Recent Factors (within past 3 months): Psychosocial/Environmental Factors: Per patient can become isolated Physical Illness: None, HIV Positive Cognitive/Psychological Factors: None C.) Historical Factors: None D.) Diagnostic/Symptom/Treatment Factors: None E.) Acute Risk Factor Severity (DESC; MILD/MOD/SEVERE): Mild Other factors for this individual that increase risk: IV. FACTORS THAT DECREASE RISK: Resilience/Protective Factors: Patient worries about applying her coping skills Other factors for this individual that decrease risk: Patient denies a desire to harm self V. Clinician's Formulation of Risk and Determination of level of Care: This is a 22-year-old AA female who was experiencing chest and LE pain and decided to take multiple Aspirin and Tylenol pills. The patient is aware that she should have not taken multiple pills because it wasn't a safe thing to do. Since being hospitalized, the patient has consistently denied the desire to harm herself. Additionally, she has become insightful about how to better address her concern. Patient is not impaired by substance. She is able to take care of her ADLs and is not at imminent risk of harm to self or others. Consequently, it is the opinion of the treatment team that the patient is at low risk of suicide and does not meet criteria to continue an involuntary psychiatric hold. Estimation of Imminent Risk: Low due to the above explanation. Determination of Level of Care based on Suicide Risk: Outpatient follow-up. Narrative description of clinical reasoning. (This must be completed on all patients): . Plan and Interventions based on Suicide Risk: This patient will likely be stepped down to an outpatient mental health center in the community upon discharge and follow-up within 7 days of her discharge from the hospital. VII. Discharge/After Hours Support Plan: Patient can return back to the ER, call 911 or crisis line if symptoms of depression, anxiety, suicidality return. Recommendation/Plan: Rescind 1013. Continue Prozac 20 mg PO daily for PTSD. Discussed possible suicidality/medication induced seth with patient reference Prozac. Discussed with patient the importance of following the directions ( administration) reference medications. Patient is seen by [facility] ([facility]) for outpatient psy services. Patient receive the monthly Invega injection given by [facility]. She received her monthly Invega injection last week. Patient can return back to her [place] per jail rep Haile Hoff.
[2017-07-04] MEDS: PROzac PO SCH (11:08)
== END 2017-07-04 14:10 | disposition home or self-care (01) ==
LOC: EEVIPCON 12:21 → ED 12:21
DX: T39.1X2A Poisoning by 4-Aminophenol derivatives, intentional self-harm, initial encounter (principal); R10.9 Unspecified abdominal pain; R07.89 Other chest pain; M25.561 Pain in right knee; J45.909 Unspecified asthma, uncomplicated; F17.200 Nicotine dependence, unspecified, uncomplicated; F12.10 Cannabis abuse, uncomplicated; Y92.9 Unspecified place or not applicable
CPT/HCPCS: 36415; 71010; 74177; 80048; 80074; 80307; 81001; 81025; 84484; 85025; 85379; 85610; 85730; 93005; 93010; 96360; 96361; 96372; 99285; G0480; J2060; J7030; Q9967; 80320

== ENCOUNTER 2017-07-08 20:47 | Emergency (ER) | payer MEDICAID ==
[2017-07-08 21:01] VITALS: BP 108/58
[2017-07-08 21:35] LABS: Basophils % (Auto) 0.4 % (0.0-1.8); Eosinophils % (Auto) 1.8 % (0.0-4.3); Hematocrit 36.4 % (30.3-42.9); Hemoglobin 12.3 gm/dl (10.1-14.3); Mean Corpuscular HGB Conc 34 % (30-34); Mean Corpuscular Hemoglobin 32 pg (28-32); Mean Corpuscular Volume 96 fl (79-97); Platelet Count 182 K/mm3 (140-440); Red Cell Distribution Width 12.1 % (13.2-15.2); White Blood Count 6.8 K/mm3 (4.5-11.0)
[2017-07-08 21:55] LABS: Anion Gap 16 mmol/L; BUN/Creatinine Ratio 22; Blood Urea Nitrogen 11 mg/dL (7-17); Calcium 8.8 mg/dL (8.4-10.2); Carbon Dioxide 22 mmol/L (22-30); Chloride 102.9 mmol/L (98-107); Glucose 86 mg/dL (65-100); Potassium 3.8 mmol/L (3.6-5.0); Sodium 137 mmol/L (137-145)
== END 2017-07-09 01:20 | disposition left against medical advice (07) ==
LOC: ED 20:47
DX: Z53.21 Procedure and treatment not carried out due to patient leaving prior to being seen by health care provider (principal)
CPT/HCPCS: 36415; 80048; 81025; 84484; 85025; 93005; 93010

== ENCOUNTER 2017-07-15 15:35 | Emergency (ER) | payer MEDICAID ==
--- NOTE | 2017-07-15 15:56 | Emergency Department Report ---
ED Psych HPI - General Chief Complaint: Psych Stated Complaint: 1013 Time Seen by Provider: 07/15/17 15:55 Source: patient, EMS Mode of arrival: Ambulatory - History of Present Illness Initial Comments: Patient is 23 years old female came today with chief complaint of hearing voices asking her to hurt herself. Is in a stated that she did not have a specific plan that she is very depressed. No visual hallucination no homicidal ideation. MD Complaint: suicidal ideation -: Gradual Associated Psychiatric Symptoms: depression, suicidal ideation, auditory hallucinations History of same: Yes - Related Data Home Medications Medication Instructions Recorded Confirmed Last Taken ALBUTEROL NEB's [Proventil] 90 mcg IH Q6H PRN 02/19/16 07/03/17 10/21/16 Abacavir/Dolutegravir/Lamivudi 1 each PO QDAY 02/19/16 07/03/17 10/21/16 [Triumeq Tablet] Prazosin [Minipress] 3 mg PO HS 05/31/16 07/03/17 10/21/16 Previous Rx's Medication Instructions Recorded Last Taken Type Naproxen [Naprosyn TAB] 500 mg PO BID #20 tablet 06/08/16 10/22/16 Rx traMADol [Ultram] 50 mg PO Q6HR PRN #10 tablet 04/26/17 Unknown Rx Allergies Allergy/AdvReac Type Severity Reaction Status Date / Time Fish Containing Products Allergy Rash Verified 09/19/14 09:38 beans Allergy Rash Uncoded 09/19/14 09:38 ED Review of Systems ROS: Stated complaint: 1013 Other details as noted in HPI Comment: All other systems reviewed and negative Constitutional: denies: chills, fever Respiratory: denies: cough, orthopnea, shortness of breath, SOB with exertion Cardiovascular: denies: chest pain, palpitations, dyspnea on exertion Gastrointestinal: denies: abdominal pain, nausea, vomiting, diarrhea, constipation, hematemesis Neurological: denies: headache ED Past Medical Hx - Past Medical History Previous Medical History?: Yes Hx Hypertension: No Hx CVA: No Hx Heart Attack/AMI: No Hx Congestive Heart Failure: No Hx Diabetes: No Hx Deep Vein Thrombosis: No Hx Pulmonary Embolism: No Hx GERD: No Hx Liver Disease: No Hx Renal Disease: No Hx Sickle Cell Disease: No Hx Arthritis: No Hx Headaches / Migraines: No Hx Seizures: No Hx Kidney Stones: No Hx Psychiatric Treatment: Yes (multiple IP stays, ANXIETY; schizophrenia; bipolar; PTSD; depression) Hx Asthma: Yes Hx COPD: No Hx Tuberculosis: No Hx Dementia: No Hx HIV: Yes Additional medical history: Tetanus up to date - Surgical History Hx Coronary Stent: No Hx Open Heart Surgery: No Hx Pacemaker: No Hx Internal Defibrillator: No Hx Cholecystectomy: No Hx Appendectomy: No Hx Breast Surgery: No Additional Surgical History: nexplanon at 18 years old ( control) - Social History Smoking Status: Unknown if ever smoked - Medications Home Medications: Home Medications Medication Instructions Recorded Confirmed Last Taken Type ALBUTEROL NEB's [Proventil] 90 mcg IH Q6H PRN 02/19/16 07/03/17 10/21/16 History Abacavir/Dolutegravir/Lamivudi 1 each PO QDAY 02/19/16 07/03/17 10/21/16 History [Triumeq Tablet] Prazosin [Minipress] 3 mg PO HS 05/31/16 07/03/17 10/21/16 History Naproxen [Naprosyn TAB] 500 mg PO BID #20 tablet 06/08/16 07/03/17 10/22/16 Rx traMADol [Ultram] 50 mg PO Q6HR PRN #10 tablet 04/26/17 07/03/17 Unknown Rx ED Physical Exam - General Limitations: No Limitations, Other General appearance: alert, in no apparent distress - Head Head exam: Present: atraumatic, normocephalic, normal inspection - Eye Eye exam: Present: normal appearance, PERRL - ENT ENT exam: Present: normal exam, normal orophraynx, mucous membranes moist - Neck Neck exam: Present: normal inspection, full ROM. Absent: tenderness, meningismus, lymphadenopathy, thyromegaly - Respiratory Respiratory exam: Present: normal lung sounds bilaterally. Absent: respiratory distress, wheezes, rales, rhonchi, stridor, chest wall tenderness, accessory muscle use, decreased breath sounds, prolonged expiratory - Cardiovascular Cardiovascular Exam: Present: regular rate, normal rhythm, normal heart sounds - GI/Abdominal GI/Abdominal exam: Present: soft, normal bowel sounds. Absent: distended, tenderness, guarding, rebound, rigid, organomegaly, mass, bruit, pulsatile mass , hernia - Extremities Exam Extremities exam: Present: normal inspection, full ROM, normal capillary refill - Back Exam Back exam: Present: normal inspection. Absent: tenderness, CVA tenderness (R), CVA tenderness (L) - Neurological Exam Neurological exam: Present: alert, oriented X3, CN II-XII intact, normal gait - Psychiatric Psychiatric exam: Present: depressed, suicidal ideation - Skin Skin exam: Present: warm, intact, normal color ED Course Vital Signs 07/15/17 15:57 Pulse Rate 66 Respiratory 16 Rate Blood Pressure 113/65 O2 Sat by Pulse 99 Oximetry Critical care attestation.: If time is entered above; I have spent that time in minutes in the direct care of this critically ill patient, excluding procedure time. ED Disposition Clinical Impression: Suicidal ideation, Acute psychosis Disposition: [id number] PSY HOSP/PSY UNIT Is pt being admited?: No Condition: Stable Referrals: PRIMARY CARE, [Primary Care Provider] - 3-5 Days
[2017-07-15 16:38] LABS: Urine Drugs of Abuse Note Disclamer
[2017-07-15 16:44] LABS: Basophils % (Auto) 0.6 % (0.0-1.8); Hemoglobin 12.5 gm/dl (10.1-14.3); Mean Corpuscular HGB Conc 33 % (30-34); Mean Corpuscular Hemoglobin 32 pg (28-32); Mean Corpuscular Volume 96 fl (79-97); Platelet Count 181 K/mm3 (140-440); Red Blood Count 3.96 M/mm3 (3.65-5.03); Red Cell Distribution Width 11.9 % (13.2-15.2); White Blood Count 7.1 K/mm3 (4.5-11.0)
[2017-07-15 17:05] LABS: Anion Gap TNR mmol/L; BUN/Creatinine Ratio TNR; Blood Urea Nitrogen TNR mg/dL (7-17); Calcium TNR mg/dL (8.4-10.2); Carbon Dioxide TNR mmol/L (22-30); Chloride TNR mmol/L (98-107); Glucose TNR mg/dL (65-100); Potassium TNR mmol/L (3.6-5.0); Sodium TNR mmol/L (137-145)
[2017-07-15 17:06] LABS: Bacteria,Urine 1+ /HPF (Negative); Bilirubin,Urine NEG (Negative); Blood,Urine SM (Negative); Ketones,Urine NEG (Negative); Leukocyte Esterase,Urine SM (Negative); Mucus,Urine FEW /HPF; Nitrite,Urine NEG (Negative); Protein,Urine <15 mg/dL mg/dL (Negative); Urobilinogen,Urine < 2.0 mg/dL (<2.0)
[2017-07-15 18:37] LABS: BUN/Creatinine Ratio 18; Blood Urea Nitrogen 9 mg/dL (7-17); Calcium 8.9 mg/dL (8.4-10.2); Carbon Dioxide 23 mmol/L (22-30); Glucose 114 mg/dL (65-100)
[2017-07-15 18:38] LABS: Anion Gap 16 mmol/L; Chloride 103.2 mmol/L (98-107); Potassium 3.6 mmol/L (3.6-5.0); Sodium 139 mmol/L (137-145)
[2017-07-16 09:11] VITALS: BP 104/53
[2017-07-16] MEDS ORDERED: NAPROSYN PO SCH (10:00)
[2017-07-16] MEDS ORDERED: DESYREL PO SCH (22:00)
[2017-07-16] MEDS ORDERED: MINIPRESS PO SCH (22:00)
== END 2017-07-16 10:37 ==
LOC: ED 15:35
DX: F31.9 Bipolar disorder, unspecified (principal); F41.9 Anxiety disorder, unspecified; F20.9 Schizophrenia, unspecified; Z91.013 Allergy to seafood; Z91.018 Allergy to other foods
CPT/HCPCS: 36415; 80048; 80307; 81001; 85025; 99285; G0480; 80320

== ENCOUNTER 2017-07-27 03:53 | Emergency (ER) | payer MEDICAID ==
[2017-07-27 05:42] LABS: Basophils % (Auto) 0.2 % (0.0-1.8); Eosinophils % (Auto) 0.7 % (0.0-4.3); Hematocrit 38.1 % (30.3-42.9); Hemoglobin 12.7 gm/dl (10.1-14.3); Mean Corpuscular HGB Conc 34 % (30-34); Mean Corpuscular Hemoglobin 32 pg (28-32); Mean Corpuscular Volume 96 fl (79-97); Platelet Count 198 K/mm3 (140-440); Red Blood Count 3.98 M/mm3 (3.65-5.03); Red Cell Distribution Width 12.2 % (13.2-15.2); White Blood Count 8.4 K/mm3 (4.5-11.0)
[2017-07-27 05:56] LABS: Anion Gap 18 mmol/L; BUN/Creatinine Ratio 32; Blood Urea Nitrogen 16 mg/dL (7-17); Carbon Dioxide 24 mmol/L (22-30); Chloride 104.2 mmol/L (98-107); Glucose 92 mg/dL (65-100); Potassium 4.7 mmol/L (3.6-5.0); Sodium 141 mmol/L (137-145)
[2017-07-27 11:08] VITALS: BP 123/65
--- NOTE | 2017-07-27 19:13 | Emergency Department Report ---
ED Chest Pain HPI - General Chief Complaint: Chest Pain Stated Complaint: CP Time Seen by Provider: 07/27/17 18:55 Source: patient Mode of arrival: Ambulatory Limitations: No Limitations - History of Present Illness Initial Comments: This is a 22-year-old female nontoxic, well nourished in appearance, no acute signs of distress presents to the ED with c/o of chronic intermittent chest pain 1 month. Patient describes chest pain as achy level VIII out of 10. Patient denies radiation of chest pain. Denies any fever, chills, nausea, vomiting, shortness of breath, calf pain, calf tenderness, bowel pain, numbness or tingling. Denies any recent travels, long car rides or recent hospital stays. Past medical history includes asthma, HIV, and psychiatric. Allergies includes fish and beans. Patient stated has follow-up appointment with vascular physician on 08/16. MD Complaint: chest pain -: month(s) (1) Pain Location: substernal Pain Radiation: none Severity: mild Severity scale (0 -10): 8 Quality: aching Consistency: intermittent Improves With: nothing Worsens With: nothing re: denies: nausea, vomting, diaphoresis, dyspnea, sense of impending doom Other Symptoms: denies: cough, fever, syncope, rash, acid taste in mouth, leg swelling, palpitations, burping Treatments Prior to Arrival: none Aspirin use within the Past 7 Days: (0) No - Related Data On Oral Contraceptives: No Home Medications Medication Instructions Recorded Confirmed Last Taken ALBUTEROL NEB's [Proventil] 90 mcg IH Q6H PRN 02/19/16 07/15/17 10/21/16 Abacavir/Dolutegravir/Lamivudi 1 each PO QDAY 02/19/16 07/15/17 10/21/16 [Triumeq Tablet] Prazosin [Minipress] 3 mg PO HS 05/31/16 07/15/17 10/21/16 Previous Rx's Medication Instructions Recorded Last Taken Type Naproxen [Naprosyn TAB] 500 mg PO BID #20 tablet 06/08/16 10/22/16 Rx traMADol [Ultram] 50 mg PO Q6HR PRN #10 tablet 04/26/17 Unknown Rx Naproxen [Naprosyn TAB] 500 mg PO BID PRN #30 07/27/17 Unknown Rx predniSONE [Deltasone] 20 mg PO BID #10 tab 07/27/17 Unknown Rx Allergies Allergy/AdvReac Type Severity Reaction Status Date / Time Fish Containing Products Allergy Rash Verified 09/19/14 09:38 beans Allergy Rash Uncoded 09/19/14 09:38 Heart Score - HEART Score History: Slightly suspicious EKG: Normal Age: < 45 Risk factors: No known risk factors Troponin: < normal limit HEART Score: 0 ED Review of Systems ROS: Stated complaint: CP Other details as noted in HPI Constitutional: denies: chills, fever Eyes: denies: eye pain, eye discharge, vision change ENT: denies: ear pain, throat pain Respiratory: denies: cough, shortness of breath, wheezing Cardiovascular: chest pain. denies: palpitations Endocrine: no symptoms reported Gastrointestinal: denies: abdominal pain, nausea, diarrhea Genitourinary: denies: urgency, dysuria, discharge Musculoskeletal: denies: back pain, joint swelling, arthralgia Skin: denies: rash, lesions Neurological: denies: headache, weakness, paresthesias Psychiatric: denies: anxiety, depression Hematological/Lymphatic: denies: easy bleeding, easy bruising ED Past Medical Hx - Past Medical History Hx Hypertension: No Hx CVA: No Hx Heart Attack/AMI: No Hx Congestive Heart Failure: No Hx Diabetes: No Hx Deep Vein Thrombosis: No Hx Pulmonary Embolism: No Hx GERD: No Hx Liver Disease: No Hx Renal Disease: No Hx Sickle Cell Disease: No Hx Arthritis: No Hx Headaches / Migraines: No Hx Seizures: No Hx Kidney Stones: No Hx Psychiatric Treatment: Yes (multiple IP stays, ANXIETY; schizophrenia; bipolar; PTSD; depression) Hx Asthma: Yes Hx COPD: No Hx Tuberculosis: No Hx Dementia: No Hx HIV: Yes Additional medical history: Tetanus up to date - Surgical History Hx Coronary Stent: No Hx Open Heart Surgery: No Hx Pacemaker: No Hx Internal Defibrillator: No Hx Cholecystectomy: No Hx Appendectomy: No Hx Breast Surgery: No Additional Surgical History: nexplanon at 18 years old ( control) - Social History Smoking Status: Former Smoker Substance Use Type: None - Medications Home Medications: Home Medications Medication Instructions Recorded Confirmed Last Taken Type ALBUTEROL NEB's [Proventil] 90 mcg IH Q6H PRN 02/19/16 07/15/17 10/21/16 History Abacavir/Dolutegravir/Lamivudi 1 each PO QDAY 02/19/16 07/15/17 10/21/16 History [Triumeq Tablet] Prazosin [Minipress] 3 mg PO HS 05/31/16 07/15/17 10/21/16 History Naproxen [Naprosyn TAB] 500 mg PO BID #20 tablet 06/08/16 07/15/17 10/22/16 Rx traMADol [Ultram] 50 mg PO Q6HR PRN #10 tablet 04/26/17 07/15/17 Unknown Rx Naproxen [Naprosyn TAB] 500 mg PO BID PRN #30 07/27/17 Unknown Rx predniSONE [Deltasone] 20 mg PO BID #10 tab 07/27/17 Unknown Rx ED Physical Exam - General Limitations: No Limitations General appearance: alert, in no apparent distress - Head Head exam: Present: atraumatic, normocephalic, normal inspection - Eye Eye exam: Present: normal appearance, PERRL, EOMI. Absent: scleral icterus, conjunctival injection, nystagmus, periorbital swelling, periorbital tenderness Pupils: Present: normal accommodation - ENT ENT exam: Present: normal exam, normal orophraynx, mucous membranes moist, TM's normal bilaterally, normal external ear exam - Neck Neck exam: Present: normal inspection, full ROM. Absent: tenderness, meningismus, lymphadenopathy, thyromegaly - Respiratory Respiratory exam: Present: normal lung sounds bilaterally, chest wall tenderness. Absent: respiratory distress, wheezes, rales, rhonchi, stridor, accessory muscle use, decreased breath sounds, prolonged expiratory - Cardiovascular Cardiovascular Exam: Present: regular rate, normal rhythm, normal heart sounds. Absent: bradycardia, tachycardia, irregular rhythm, systolic murmur, diastolic murmur, rubs, gallop - GI/Abdominal GI/Abdominal exam: Present: soft, normal bowel sounds. Absent: distended, tenderness, guarding, rebound, rigid, diminished bowel sounds - Rectal Rectal exam: Present: deferred - Extremities Exam Extremities exam: Present: normal inspection, full ROM, normal capillary refill. Absent: tenderness, pedal edema, joint swelling, calf tenderness - Back Exam Back exam: Present: normal inspection, full ROM. Absent: tenderness, CVA tenderness (R), CVA tenderness (L), muscle spasm, paraspinal tenderness, vertebral tenderness, rash noted - Neurological Exam Neurological exam: Present: alert, oriented X3, CN II-XII intact, normal gait, reflexes normal - Psychiatric Psychiatric exam: Present: normal affect, normal mood - Skin Skin exam: Present: warm, dry, intact, normal color. Absent: rash ED Course Vital Signs 07/27/17 07/27/17 05:11 11:07 Temperature 98.3 F 98.4 F Pulse Rate 80 64 Respiratory 18 Rate Blood Pressure 116/71 123/65 O2 Sat by Pulse 100 100 Oximetry - Reevaluation(s) Reevaluation #1: 07/27/17 19:14 Patient is speaking in full sentences with no signs of distress noted. MIRTA score - Mirta Score Age > 65: (0) No Aspirin use within the Past 7 Days: (0) No 3 or more CAD Risk Factors: (0) No 2 or more Angina events in past 24 hrs: (0) No Known CAD with more than 50% Stenosis: (0) No Elevated Cardiac Markers: (0) No ST Deviation Greater than 0.5mm: (0) No MIRTA Score: 0 ED Medical Decision Making - Lab Data Result diagrams: 07/27/17 05:21 07/27/17 05:21 - Medical Decision Making This is a 22-year-old female that presents with costochondritis. Patient is stable and was examined by me. EKG obtained with normal sinus rhythm and no ST- T abnormalities. -3 troponins. D-dimer normal. Other labs are unremarkable. Patient has a follow-up appointment with vascular physician on 08/16. Wells criteria for PE is 0.0 points Low risk group: 1.3% chance of PE in an ED population. Chest x-ray within normal exam and dictated by radiologist. Another study assigned scores 4 as PE Unlikely and had a 3% incidence of PE. Patient received prednisone and Motrin and discharged. Patient was instructed to follow up on the vascular physician in 24 hours or if symptoms worsen and continue to return to emergency room as soon as possible. At time time of discharge, the patient does not seem toxic or ill in appearance. No acute signs of distress noted. Patient agrees to discharge treatment plan of care. No further questions noted by the patient. Critical care attestation.: If time is entered above; I have spent that time in minutes in the direct care of this critically ill patient, excluding procedure time. ED Disposition Clinical Impression: Costochondritis Disposition: DC-01 TO HOME OR SELFCARE Is pt being admited?: No Does the pt Need Aspirin: No Condition: Stable Instructions: Naproxen (By mouth), Prednisone (By mouth), Costochondritis (ED) Additional Instructions: follow-up with a vascular physician/primary care doctor 24 HOURS OR IF SYMPTOMS SUCH SHORTNESS OF BREATH, worsening chest pain or any abnormal symptoms return to emergency room as soon as possible. Prescriptions: Naproxen [Naprosyn TAB] 500 mg PO BID PRN #30 PRN Reason: Pain predniSONE [Deltasone] 20 mg PO BID #10 tab Referrals: [facility] [Outside] - 3-5 Days [facility] [Outside] - 3-5 Days PRIMARY CAREMD [Primary Care Provider] - 24 Hours MEY LOPEZ MD [Staff Physician] - 24 Hours KUN LANZA MD [Staff Physician] - 24 Hours Forms: Work/School Release Form(ED)
--- NOTE | 2017-07-27 20:48 | XRay Report ---
FINAL REPORT PROCEDURE: XR CHEST ROUTINE 2V TECHNIQUE: Two views of the chest are obtained HISTORY: cp COMPARISON: No prior studies are available for comparison. FINDINGS: The heart is normal in size. There is no focal infiltrate, pneumothorax or pleural effusion. IMPRESSION: No abnormalities are seen.
== END 2017-07-27 21:11 | disposition home or self-care (01) ==
LOC: ED 03:53
DX: M94.0 Chondrocostal junction syndrome [Tietze] (principal); J45.909 Unspecified asthma, uncomplicated; Z87.891 Personal history of nicotine dependence; Z91.013 Allergy to seafood; Z91.018 Allergy to other foods
CPT/HCPCS: 36415; 71020; 80048; 84484; 84703; 85025; 85379; 93005; 93010

== ENCOUNTER 2017-09-14 01:16 | Emergency (ER) | payer MEDICAID ==
[2017-09-14 02:00] LABS: HCG Qualitative,Urine Negative (Negative)
[2017-09-14 02:06] LABS: Bacteria,Urine 1+ /HPF (Negative); Bilirubin,Urine NEG (Negative); Blood,Urine NEG (Negative); Color,Urine Yellow (Yellow); Mucus,Urine FEW /HPF; Nitrite,Urine NEG (Negative); Protein,Urine <15 mg/dL mg/dL (Negative)
[2017-09-14 02:08] LABS: Hematocrit 38.9 % (30.3-42.9); Hemoglobin 12.8 gm/dl (10.1-14.3); Mean Corpuscular HGB Conc 33 % (30-34); Mean Corpuscular Hemoglobin 31 pg (28-32); Mean Corpuscular Volume 94 fl (79-97); Platelet Count 202 K/mm3 (140-440); Red Blood Count 4.16 M/mm3 (3.65-5.03); Red Cell Distribution Width 13.1 % (13.2-15.2)
[2017-09-14 02:09] LABS: Amphetamine Screen,Urine PRESUMPTIVE NEGATIVE; Benzodiazepines Screen,Urine PRESUMPTIVE NEGATIVE; Cannabinoid Screen,Urine PRESUMPTIVE NEGATIVE; Cocaine Screen,Urine PRESUMPTIVE NEGATIVE; Methadone Screen,Urine PRESUMPTIVE NEGATIVE; Opiate Screen,Urine PRESUMPTIVE NEGATIVE
[2017-09-14 02:23] LABS: BUN/Creatinine Ratio 25; Blood Urea Nitrogen 10 mg/dL (7-17); Calcium 8.6 mg/dL (8.4-10.2); Hemolysis Index 6
[2017-09-14] MEDS ORDERED: MACROBID PO ONE (02:37)
[2017-09-14] MEDS ORDERED: HABITROL TD ONE (02:43)
--- NOTE | 2017-09-14 02:49 | Emergency Department Report ---
ED Psych HPI - General Chief Complaint: Psych Stated Complaint: SUICIDAL THOUGHTS/MH EVAL Time Seen by Provider: 09/14/17 01:39 Source: patient, police Mode of arrival: Ambulatory Limitations: No Limitations - History of Present Illness Initial Comments: 22-year-old female with a past medical history of anxiety, schizophrenia, bipolar, PTSD, asthma, and HIV presents to Hospital complains of suicidal thoughts. For the past 2 days patient has been hearing voices telling her to go down the street, find a piece of glass, and cut herself. Patient states that she bit her left wrist today to keep herself from cutting herself. No bleeding reported. Patient has previous self-inflicted superficial lacerations to forearm. Patient is currently living at [place]. She is compliant with all her medication. Tetanus up-to-date. - Related Data Home Medications Medication Instructions Recorded Confirmed Last Taken Abacavir/Dolutegravir/Lamivudi 1 each PO QDAY 02/19/16 09/14/17 09/13/17 [Triumeq Tablet] Prazosin [Minipress] 3 mg PO HS 05/31/16 09/14/17 09/13/17 Paliperidone Palmitate [Invega 39 mg IM Q30D 09/14/17 09/14/17 Unknown Sustenna] Allergies Allergy/AdvReac Type Severity Reaction Status Date / Time Fish Containing Products Allergy Rash Verified 09/19/14 09:38 beans Allergy Rash Uncoded 09/19/14 09:38 ED Review of Systems ROS: Stated complaint: SUICIDAL THOUGHTS/MH EVAL Other details as noted in HPI Comment: All other systems reviewed and negative Other: Constitutional: No fevers chills Eyes: No eye pain visual changes ENT: No ear pain or throat pain Neck: Denies pain Respiratory: Denies cough wheezing shortness of breath Cardiovascular: Denies chest pain, palpitations, syncope GI: Denies abdominal pain, nausea, vomiting, diarrhea : Denies dysuria Musculoskeletal: Denies back pain Skin:as per hpi Neurologic: Denies headache, numbness, weakness Psychiatric: as per hpi ED Past Medical Hx - Past Medical History Previous Medical History?: Yes Hx Hypertension: No Hx CVA: No Hx Heart Attack/AMI: No Hx Congestive Heart Failure: No Hx Diabetes: No Hx Deep Vein Thrombosis: No Hx Pulmonary Embolism: No Hx GERD: No Hx Liver Disease: No Hx Renal Disease: No Hx Sickle Cell Disease: No Hx Arthritis: No Hx Headaches / Migraines: No Hx Seizures: No Hx Kidney Stones: No Hx Psychiatric Treatment: Yes (multiple IP stays, ANXIETY; schizophrenia; bipolar; PTSD; depression) Hx Asthma: Yes Hx COPD: No Hx Tuberculosis: No Hx Dementia: No Hx HIV: Yes Additional medical history: Tetanus up to date per patient - Surgical History Past Surgical History?: Yes Hx Coronary Stent: No Hx Open Heart Surgery: No Hx Pacemaker: No Hx Internal Defibrillator: No Hx Cholecystectomy: No Hx Appendectomy: No Hx Breast Surgery: No Additional Surgical History: nexplanon at 18 years old ( control) - Social History Smoking Status: Unknown if ever smoked Substance Use Type: Prescribed - Medications Home Medications: Home Medications Medication Instructions Recorded Confirmed Last Taken Type Abacavir/Dolutegravir/Lamivudi 1 each PO QDAY 02/19/16 09/14/17 09/13/17 History [Triumeq Tablet] Prazosin [Minipress] 3 mg PO HS 05/31/16 09/14/17 09/13/17 History Paliperidone Palmitate [Invega 39 mg IM Q30D 09/14/17 09/14/17 Unknown History Sustenna] ED Physical Exam - General Limitations: Other - Other Other exam information: General: No limitations, patient is alert in no acute distress Head exam: Atraumatic, normocephalic Eyes exam: Normal appearance ENT: Moist mucous membrane, normal oropharynx Neck exam: Normal inspection, full range of motion, no meningismus nontender Respiratory exam: Clear to auscultation bilateral, no wheezes, rales, crackles Cardiovascular: Normal rate and rhythm, normal heart sounds Abdomen: Soft, nondistended, and nontender, with normal bowel sounds, no rebound, or guarding Extremity: Full range of motion normal inspection no deformity Back: Normal Inspection, full range of motion, no tenderness Neurologic: Alert, oriented x3, cranial nerves intact, no motor or sensory deficit Psychiatric: normal affect, normal mood Skin: Superficial skin bite dubon to the radial side of left wrist without break in the skin surface. Multiple superficial vertical lacerations to left forearm from previous self-inflicted wounds without laceration or erythema ED Course Vital Signs 09/14/17 09/14/17 09/14/17 01:44 07:16 11:50 Temperature 97.9 F Pulse Rate 68 Respiratory 18 22 18 Rate Blood Pressure 120/76 Blood Pressure [Left] O2 Sat by Pulse 98 100 100 Oximetry 09/14/17 18:19 Temperature 98 F Pulse Rate 78 Respiratory 18 Rate Blood Pressure Blood Pressure 121/78 [Left] O2 Sat by Pulse 100 Oximetry - Consultations Consultation #1: 09/14/17 02:50 Mental health caryl consulted ED Medical Decision Making - Lab Data Result diagrams: 09/14/17 01:49 09/14/17 01:49 Lab Results 09/14/17 09/14/17 09/14/17 Range/Units 01:42 01:42 01:49 WBC 7.0 (4.5-11.0) K/mm3 RBC 4.16 (3.65-5.03) M/mm3 Hgb 12.8 (10.1-14.3) gm/dl Hct 38.9 (30.3-42.9) % MCV 94 (79-97) fl MCH 31 (28-32) pg MCHC 33 (30-34) % RDW 13.1 L (13.2-15.2) % Plt Count 202 (140-440) K/mm3 Sodium (137-145) mmol/L Potassium (3.6-5.0) mmol/L Chloride (98-107) mmol/L Carbon Dioxide (22-30) mmol/L Anion Gap mmol/L BUN (7-17) mg/dL Creatinine (0.7-1.2) mg/dL Estimated GFR ml/min BUN/Creatinine Ratio % Glucose (65-100) mg/dL Calcium (8.4-10.2) mg/dL Urine Color Yellow (Yellow) Urine Turbidity Clear (Clear) Urine pH 6.0 (5.0-7.0) Ur Specific [place] 1.019 (1.003-1.030) Urine Protein <15 mg/dl (Negative) mg/dL Urine Glucose (UA) Neg (Negative) mg/dL Urine Ketones Neg (Negative) mg/dL Urine Blood Neg (Negative) Urine Nitrite Neg (Negative) Ur Reducing Substances Not Reportable Urine Bilirubin Neg (Negative) Urine Ictotest Not Reportable Urine Urobilinogen 4.0 (<2.0) mg/dL Ur Leukocyte Esterase Mod (Negative) Urine WBC (Auto) 49.0 H (0.0-6.0) /HPF Urine RBC (Auto) 4.0 (0.0-6.0) /HPF U Epithel Cells (Auto) 6.0 (0-13.0) /HPF Urine Bacteria (Auto) 1+ (Negative) /HPF Urine Mucus Few /HPF Urine HCG, Qual Negative (Negative) Salicylates (2.8-20.0) mg/dL Urine Opiates Screen Presumptive negative Urine Methadone Screen Presumptive negative Acetaminophen (10.0-30.0) ug/mL Ur Barbiturates Screen Presumptive negative Ur Phencyclidine Scrn Presumptive negative Ur Amphetamines Screen Presumptive negative U Benzodiazepines Scrn Presumptive negative Urine Cocaine Screen Presumptive negative U Marijuana (THC) Screen Presumptive negative Drugs of Abuse Note Disclamer Plasma/Serum Alcohol (0-0.07) gm% 09/14/17 09/14/17 09/14/17 Range/Units 01:49 01:49 01:49 WBC (4.5-11.0) K/mm3 RBC (3.65-5.03) M/mm3 Hgb (10.1-14.3) gm/dl Hct (30.3-42.9) % MCV (79-97) fl MCH (28-32) pg MCHC (30-34) % RDW (13.2-15.2) % Plt Count (140-440) K/mm3 Sodium 141 (137-145) mmol/L Potassium 3.9 (3.6-5.0) mmol/L Chloride 103.9 (98-107) mmol/L Carbon Dioxide 24 (22-30) mmol/L Anion Gap 17 mmol/L BUN 10 (7-17) mg/dL Creatinine 0.4 L (0.7-1.2) mg/dL Estimated GFR > 60 ml/min BUN/Creatinine Ratio 25 % Glucose 97 (65-100) mg/dL Calcium 8.6 (8.4-10.2) mg/dL Urine Color (Yellow) Urine Turbidity (Clear) Urine pH (5.0-7.0) Ur Specific [place]y (1.003-1.030) Urine Protein (Negative) mg/dL Urine Glucose (UA) (Negative) mg/dL Urine Ketones (Negative) mg/dL Urine Blood (Negative) Urine Nitrite (Negative) Ur Reducing Substances Urine Bilirubin (Negative) Urine Ictotest Urine Urobilinogen (<2.0) mg/dL Ur Leukocyte Esterase (Negative) Urine WBC (Auto) (0.0-6.0) /HPF Urine RBC (Auto) (0.0-6.0) /HPF U Epithel Cells (Auto) (0-13.0) /HPF Urine Bacteria (Auto) (Negative) /HPF Urine Mucus /HPF Urine HCG, Qual (Negative) Salicylates < 0.3 L (2.8-20.0) mg/dL Urine Opiates Screen Urine Methadone Screen Acetaminophen < 15.0 (10.0-30.0) ug/mL Ur Barbiturates Screen Ur Phencyclidine Scrn Ur Amphetamines Screen U Benzodiazepines Scrn Urine Cocaine Screen U Marijuana (THC) Screen Drugs of Abuse Note Plasma/Serum Alcohol (0-0.07) gm% 09/14/17 Range/Units 01:49 WBC (4.5-11.0) K/mm3 RBC (3.65-5.03) M/mm3 Hgb (10.1-14.3) gm/dl Hct (30.3-42.9) % MCV (79-97) fl MCH (28-32) pg MCHC (30-34) % RDW (13.2-15.2) % Plt Count (140-440) K/mm3 Sodium (137-145) mmol/L Potassium (3.6-5.0) mmol/L Chloride (98-107) mmol/L Carbon Dioxide (22-30) mmol/L Anion Gap mmol/L BUN (7-17) mg/dL Creatinine (0.7-1.2) mg/dL Estimated GFR ml/min BUN/Creatinine Ratio % Glucose (65-100) mg/dL Calcium (8.4-10.2) mg/dL Urine Color (Yellow) Urine Turbidity (Clear) Urine pH (5.0-7.0) Ur Specific [place]y (1.003-1.030) Urine Protein (Negative) mg/dL Urine Glucose (UA) (Negative) mg/dL Urine Ketones (Negative) mg/dL Urine Blood (Negative) Urine Nitrite (Negative) Ur Reducing Substances Urine Bilirubin (Negative) Urine Ictotest Urine Urobilinogen (<2.0) mg/dL Ur Leukocyte Esterase (Negative) Urine WBC (Auto) (0.0-6.0) /HPF Urine RBC (Auto) (0.0-6.0) /HPF U Epithel Cells (Auto) (0-13.0) /HPF Urine Bacteria (Auto) (Negative) /HPF Urine Mucus /HPF Urine HCG, Qual (Negative) Salicylates (2.8-20.0) mg/dL Urine Opiates Screen Urine Methadone Screen Acetaminophen (10.0-30.0) ug/mL Ur Barbiturates Screen Ur Phencyclidine Scrn Ur Amphetamines Screen U Benzodiazepines Scrn Urine Cocaine Screen U Marijuana (THC) Screen Drugs of Abuse Note Plasma/Serum Alcohol < 0.01 (0-0.07) gm% - Medical Decision Making Psychosis Positive hallucinations States compliant with medications Self-inflicted injury History of borderline disorder Also history self-inflicted wounds No skin breakdown from bite attempt therefore antibiotics not prescribed UTI Positive increased wbc on urine Culture sent Macrobid will be initiated HIV will continue meds or formulary equivalent - Differential Diagnosis psychosis, borderline, depression, schizophrenia Critical Care Time: No Critical care attestation.: If time is entered above; I have spent that time in minutes in the direct care of this critically ill patient, excluding procedure time. ED Disposition Clinical Impression: Medical clearance for psychiatric admission, Suicidal ideations, Auditory hallucinations, Injury, self-inflicted, UTI (urinary tract infection) Disposition: DC/TX-65 PSY HOSP/PSY UNIT Is pt being admited?: No Condition: Stable Time of Disposition: 02:52 (awaiting acceptance)
[2017-09-14] MEDS ORDERED: NON-FORMULARY (Abacavir/Dolutegravir/Lamivudi [Triumeq Tablet] 1 EACH) PO SCH (10:00)
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
[2017-09-14] MEDS ORDERED: HALDOL IM ONE (19:12)
[2017-09-14] MEDS ORDERED: HALDOL ONE (19:14)
[2017-09-14] MEDS ORDERED: MINIPRESS PO SCH ×3 (22:00)
[2017-09-14] MEDS ORDERED: RisperDAL PO SCH (22:00)
[2017-09-14] MEDS ORDERED: MACROBID PO SCH (22:00)
[2017-09-15 07:36] VITALS: BP 128/84
== END 2017-09-15 07:00 ==
LOC: ED 01:16 → EEVIPCON 01:16 → ED 09-15 07:00
DX: N39.0 Urinary tract infection, site not specified (principal); R44.0 Auditory hallucinations; R45.851 Suicidal ideations
CPT/HCPCS: 36415; 80048; 80307; 81001; 81025; 85027; 87086; 96372; 99283; G0480; J1630; 80320

== ENCOUNTER 2017-10-03 16:23 | Emergency (ER) | payer MEDICAID ==
[2017-10-03 16:40] VITALS: BP 128/68
[2017-10-03 17:03] LABS: Bacteria,Urine 1+ /HPF (Negative); Bilirubin,Urine NEG (Negative); Blood,Urine NEG (Negative); Color,Urine Yellow (Yellow); Mucus,Urine FEW /HPF; Nitrite,Urine NEG (Negative)
[2017-10-03 17:08] LABS: HCG Qualitative,Urine Negative (Negative)
[2017-10-03] MEDS ORDERED: TYLENOL #3 PO ONE (18:10)
--- NOTE | 2017-10-03 18:13 | Emergency Department Report ---
HPI - General Chief Complaint: Back Pain/Injury Time Seen by Provider: 10/03/17 18:10 - HPI HPI: Patient complain in that she has lower back pain. She says she walks that she lifts a lot A and she doesn't know what caused the back pain but is being going on for 1 day. Denies any fever or chills. Denies any nausea or vomiting. Denies any urinary burning frequency or urgency. Denies any abdominal pain. Denies any trauma. Patient also was here 3 weeks ago and was 1013 for mental health issues to include hearing voices. She is complaining that she left her antiviral medication here. Patient has a history of HIV from . She is on Triaminic and she says she goes to [facility] and she has an appointment with her infectious disease doctor next week. She says she's been missing her medication because she left them here in the hospital. I discussed the patient that she has to talk to security and nursing be able to direct her to security office and they will be able to check and see if her medication or left ear. Pain is 9 out of 10 in a can. Denies any radiation of pain. Denies any numbness or 2 into extremities or any loss of bowel or bladder function. She does not take any pain medication for back pain at present. ED Past Medical Hx - Past Medical History Previous Medical History?: Yes Hx Hypertension: No Hx CVA: No Hx Heart Attack/AMI: No Hx Congestive Heart Failure: No Hx Diabetes: No Hx Deep Vein Thrombosis: No Hx Pulmonary Embolism: No Hx GERD: No Hx Liver Disease: No Hx Renal Disease: No Hx Sickle Cell Disease: No Hx Arthritis: No Hx Headaches / Migraines: No Hx Seizures: No Hx Kidney Stones: No Hx Psychiatric Treatment: Yes (multiple IP stays, ANXIETY; schizophrenia; bipolar; PTSD; depression) Hx Asthma: Yes Hx COPD: No Hx Tuberculosis: No Hx Dementia: No Hx HIV: Yes Additional medical history: Tetanus up to date per patient - Surgical History Past Surgical History?: Yes Hx Coronary Stent: No Hx Open Heart Surgery: No Hx Pacemaker: No Hx Internal Defibrillator: No Hx Cholecystectomy: No Hx Appendectomy: No Hx Breast Surgery: No Additional Surgical History: nexplanon at 18 years old ( control) - Family History Family history: hypertension - Social History Smoking Status: Former Smoker Substance Use Type: Prescribed - Medications Home Medications: Home Medications Medication Instructions Recorded Confirmed Last Taken Type Abacavir/Dolutegravir/Lamivudi 1 each PO QDAY 02/19/16 09/14/17 09/13/17 History [Triumeq Tablet] Prazosin [Minipress] 3 mg PO HS 05/31/16 09/14/17 09/13/17 History Paliperidone Palmitate [Invega 39 mg IM Q30D 09/14/17 09/14/17 Unknown History Sustenna] Nitrofurantoin Monohyd/M-Cryst 100 mg PO Q12H 7 Days #14 capsule 10/03/17 Unknown Rx [Macrobid 100 mg Capsule] ED Review of Systems ROS: Stated complaint: LOWER BACK PAIN Other details as noted in HPI Comment: All other systems reviewed and negative Constitutional: no symptoms reported Eyes: denies: eye discharge, vision change ENT: denies: throat pain, congestion Respiratory: no symptoms reported Cardiovascular: denies: chest pain, palpitations, edema, syncope Gastrointestinal: denies: abdominal pain, nausea, vomiting, diarrhea, constipation, hematemesis, melena, hematochezia Genitourinary: denies: urgency, dysuria, frequency, hematuria, discharge Musculoskeletal: back pain. denies: joint swelling, arthralgia, myalgia Skin: denies: rash Neurological: denies: headache, weakness, numbness, paresthesias, confusion, abnormal gait, vertigo Physical Exam - Physical Exam Vital Signs: Vital Signs 10/03/17 16:35 Temperature 98.3 F Pulse Rate 101 H Respiratory 20 Rate Blood Pressure 128/68 O2 Sat by Pulse 100 Oximetry Vital Signs 10/03/17 10/03/17 16:35 18:58 Temperature 98.3 F Pulse Rate 101 H 84 Respiratory 20 Rate Blood Pressure 128/68 O2 Sat by Pulse 100 Oximetry General: This is a 22-year-old female well-nourished well-developed in no acute distress Physical Exam: Head: Normocephalic, atraumatic, no abrasion, no bruising and no contusion. Eyes: Biateral pupils equal and reactive to light, bilateral EOM intact.. Bilateral conjunctival and sclera without injection, normal accommodation. No nystagmus Mouth: Moist, no pharyngeal exudate or erythema. No peritonsillar abscesses. Uvula is midline and oral airways patent. Neck: Supple, No Cervical adenopathy, full range of motion and no C-spine tenderness. No swelling or tracheal deviation normal reflexes Cardiovascular: S1, S2. Regular rate and rhythm. No murmur. Capillary refill is less then 3 seconds. Lungs: Clear to auscultate bilaterally. No rhonchi, wheezes or rales. No chest wall tenderness. No chest contusion. No bruising to chest. MSK: Strength 5/5 in all extremities. No joint deformity or crepitus. Normal inspection. Full range of motion to all extremities. No laceration, abrasion or ecchymotic area noted. Patient able to fully flex and extend bilateral knees without any difficulties. Bilateral knees nontender to palpate. Abdomen: Non-tender to palpate in all quadrants, no guarding or rebound tenderness, positive bowel sounds in all quadrants. No CVA tenderness. No hernia, bruit or mass. No rigidity or distention. Extremities: No clubbing, cyanosis or edema. +2 pulses. No neurovascular compromise Skin: Clean, dry and intact. No rash or lesions. Neurological: GCS at 15, Pt is alert and oriented 3 speech is clear period. Bilateral hand manager appointment strong and equal. Normal gait. Negative Romberg and no pronator drift. Normal Reflexes. No motor or sensory deficit Back: No vertebral tenderness, no paraspinal tenderness. Ambulates without any difficulties. No paraspinal tenderness. No saddle anesthesia Psych: Normal mood and behavior ED Course Vital Signs 10/03/17 16:35 Temperature 98.3 F Pulse Rate 101 H Respiratory 20 Rate Blood Pressure 128/68 O2 Sat by Pulse 100 Oximetry Vital Signs 10/03/17 10/03/17 16:35 18:58 Temperature 98.3 F Pulse Rate 101 H 84 Respiratory 20 Rate Blood Pressure 128/68 O2 Sat by Pulse 100 Oximetry - Reevaluation(s) Reevaluation #1: 10/03/17 19:09 Patient stable, able to tolerate liquids well. Patient urinalysis positive for white cells and bacteria. Given her immunocompromised state L start her on antibiotic and I told her that she'll need to follow up with her infectious disease doctor. Patient was given Tylenol No. 3 2 tablets emergency room for back pain. ED Medical Decision Making - Medical Decision Making ED course: Reports back pain that started yesterday. She does not have any urinary symptoms nor does she have any back pain. No fever no chills. Physical findings normal exam. Urinalysis show patient with white blood cell and bacteria in her urine. Patient is HIV positive and she is on medication but said that last time she was here her medication was left here and she is not able to take her medication everyday. She does go to [facility] clinic so I discussed the patient needs to follow-up for UTI and also to get started back on her medicine. She was given Tylenol 3 2 tablets for back pain and forcefully for pain. Back exam is normal. Urine culture sent. Patient discharged home in stable condition with prescription for Macrobid and to follow -up with her primary care physician in 2 days. Critical care attestation.: If time is entered above; I have spent that time in minutes in the direct care of this critically ill patient, excluding procedure time. ED Disposition Clinical Impression: Acute cystitis without hematuria Lower back pain Qualifiers: Chronicity: acute Back pain laterality: bilateral Sciatica presence: without sciatica Qualified Code(s): M54.5 - Low back pain Disposition: - TO HOME OR SELFCARE Is pt being admited?: No Does the pt Need Aspirin: No Condition: Stable Instructions: Acute Low Back Pain (ED), Urinary Tract Infection in Women (ED) Additional Instructions: Please increase her fluid intake to 23 L of fluid per day to include cranberry juice and water. Follow-up with infectious disease doctor at [facility] for evaluation and to restart HIV medication Macrobid as prescribed for urinary tract infection Prescriptions: Nitrofurantoin Monohyd/M-Cryst [Macrobid 100 mg Capsule] 100 mg PO Q12H 7 Days # 14 capsule Referrals: [facility] [Outside] - 10/05/17 follow-up with your, such as disease doctor at [facility] [Other] - 10/04/17
== END 2017-10-03 19:30 | disposition home or self-care (01) ==
LOC: ED 16:23
DX: N30.00 Acute cystitis without hematuria (principal); M54.5 Low back pain; F20.9 Schizophrenia, unspecified; F31.9 Bipolar disorder, unspecified; Z21 Asymptomatic human immunodeficiency virus [HIV] infection status; Z87.891 Personal history of nicotine dependence; Z91.013 Allergy to seafood
CPT/HCPCS: 81001; 81025; 87086; 99283

== ENCOUNTER 2018-11-14 17:35 | Emergency (ER) | payer MEDICAID ==
--- NOTE | 2018-11-14 17:58 | Emergency Department Report ---
HPI - General Chief Complaint: Overdose Time Seen by Provider: 11/14/18 17:53 - HPI HPI: Room 23 The patient is a 23-year-old female presenting with a chief complaint of suicidal ideation and overdose. The patient states she has been suicidal for a while then sometime this afternoon (after 12:00) she ingested prazosin 5 mg #100 and Benadryl #12-15. Patient denies any other coingestants. When asked how she is going to the patient states she just feels sleepy. Location: [See above] Duration: [See above] Quality: [See above] Severity: [See above] Modifying factors: [see above] Context: [see above] Mode of transportation: [not driving] ED Past Medical Hx - Past Medical History Hx Psychiatric Treatment: Yes (multiple IP stays, ANXIETY; schizophrenia; bipolar; PTSD; depression) Hx Asthma: Yes Hx HIV: Yes (last CD4 count unknown) Additional medical history: Tetanus up to date per patient - Surgical History Additional Surgical History: nexplanon at 18 years old ( control) - Family History Family history: no significant - Social History Smoking Status: Former Smoker Substance Use Type: None (denies illicit drug use) - Medications Home Medications: Home Medications Medication Instructions Recorded Confirmed Last Taken Type Abacavir/Dolutegravir/Lamivudi 1 each PO QDAY 02/19/16 09/14/17 09/13/17 History [Triumeq Tablet] Prazosin [Minipress] 3 mg PO HS 05/31/16 09/14/17 09/13/17 History Paliperidone Palmitate [Invega 39 mg IM Q30D 09/14/17 09/14/17 Unknown History Sustenna] Nitrofurantoin Monohyd/M-Cryst 100 mg PO Q12H 7 Days #14 capsule 10/03/17 Unknown Rx [Macrobid 100 mg Capsule] ED Review of Systems ROS: Stated complaint: SUICIDAL THOUGHT Other details as noted in HPI Constitutional: other (sleepy) Eyes: denies: eye pain ENT: denies: throat pain Respiratory: no symptoms reported Cardiovascular: denies: chest pain Endocrine: no symptoms reported Gastrointestinal: denies: abdominal pain Genitourinary: denies: dysuria Musculoskeletal: denies: back pain Neurological: denies: headache Psychiatric: suicidal thoughts Physical Exam - Physical Exam Vital Signs: Vital Signs 11/14/18 17:53 Pulse Rate 92 H Respiratory 16 Rate Blood Pressure 110/58 [Left] O2 Sat by Pulse 98 Oximetry Physical Exam: GENERAL: The patient is well-developed well-nourished female lying on stretcher not appearing to be in acute distress. [] HEENT: Normocephalic. Atraumatic. Extraocular motions are intact. Patient has moist mucous membranes. NECK: Supple. Trachea midline CHEST/LUNGS: Clear to auscultation. There is no respiratory distress noted. HEART/CARDIOVASCULAR: Regular. There is tachycardia. There is no gallop rub or murmur. ABDOMEN: Abdomen is soft, nontender. Patient has normal bowel sounds. There is no abdominal distention. SKIN: There is no rash. There is no edema. There is no diaphoresis. NEURO: The patient is awake, alert, and oriented. The patient is cooperative. The patient has normal speech MUSCULOSKELETAL: There is no evidence of acute injury. ED Course Vital Signs 11/14/18 17:53 Pulse Rate 92 H Respiratory 16 Rate Blood Pressure 110/58 [Left] O2 Sat by Pulse 98 Oximetry - Reevaluation(s) Reevaluation #1: 11/14/18 23:44 BP 108/69 - Consultations Consultation #1: 11/14/18 17:57 Poison control called ED Medical Decision Making - Lab Data Result diagrams: 11/14/18 18:24 11/14/18 18:24 - EKG Data -: EKG Interpreted by Me EKG shows normal: sinus rhythm Rate: normal - EKG Data When compared to previous EKG there are: previous EKG unavailable Interpretation: nonspecific ST-T wave toby (T-wave inversion in lead V2.), other ( QRS 85) - Differential Diagnosis suicidal ideation, overdose Critical care attestation.: If time is entered above; I have spent that time in minutes in the direct care of this critically ill patient, excluding procedure time. ED Disposition Clinical Impression: Suicidal ideations, Deliberate medication overdose, Medical clearance for psychiatric admission Disposition: [id number] PSY HOSP/PSY UNIT Is pt being admited?: No Does the pt Need Aspirin: No Condition: Serious Referrals: JESSENIA FLETCHER MD [Primary Care Provider] - 3-5 Days Time of Disposition: 23:44 (awaiting acceptance)
[2018-11-14] MEDS ORDERED: NACL 0.9% 1000 ML 1,000 ML IV ONE (18:09)
[2018-11-14 18:36] LABS: Basophils % (Auto) 0.3 % (0.0-1.8); Eosinophils # (Auto) 0.1 K/mm3 (0.0-0.4); Hematocrit 36.5 % (30.3-42.9); Hemoglobin 12.8 gm/dl (10.1-14.3); Lymphocytes # (Auto) 2.7 K/mm3 (1.2-5.4); Lymphocytes % (Auto) 27.8 % (13.4-35.0); Mean Corpuscular HGB Conc 35 % (30-34); Mean Corpuscular Volume 93 fl (79-97); Monocytes # (Auto) 0.9 K/mm3 (0.0-0.8); Monocytes % (Auto) 9.3 % (0.0-7.3); Platelet Count 235 K/mm3 (140-440); Red Blood Count 3.94 M/mm3 (3.65-5.03); Red Cell Distribution Width 12.2 % (13.2-15.2)
[2018-11-14 19:01] LABS: Alanine Aminotransferase 13 units/L (7-56); Albumin 3.7 g/dL (3.9-5); BUN/Creatinine Ratio 27; Blood Urea Nitrogen 16 mg/dL (7-17); Calcium 9.5 mg/dL (8.4-10.2); Hemolysis Index 25
[2018-11-14] MEDS ORDERED: NACL 0.9% 1000 ML 1,000 ML ONE (21:14)
[2018-11-15 07:20] LABS: Bacteria,Urine 3+ /HPF (Negative); Bilirubin,Urine NEG (Negative); Blood,Urine NEG (Negative); Color,Urine Yellow (Yellow); Mucus,Urine 2+ /HPF; Protein,Urine <15 mg/dL mg/dL (Negative)
[2018-11-15 07:31] LABS: HCG Qualitative,Urine Negative (Negative)
[2018-11-15 07:35] LABS: Amphetamine Screen,Urine PRESUMPTIVE NEGATIVE; Benzodiazepines Screen,Urine PRESUMPTIVE NEGATIVE; Cannabinoid Screen,Urine PRESUMPTIVE NEGATIVE; Cocaine Screen,Urine PRESUMPTIVE NEGATIVE; Methadone Screen,Urine PRESUMPTIVE NEGATIVE; Opiate Screen,Urine PRESUMPTIVE NEGATIVE
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
[2018-11-15] MEDS: PROzac PO SCH ×2 (12:45→13:26)
[2018-11-15] MEDS ORDERED: GEODON IM ONE ×2 (15:59→16:02)
[2018-11-15] MEDS ORDERED: VISTARIL PO ONE (20:40)
[2018-11-15] MEDS ORDERED: VISTARIL ONE (20:44)
[2018-11-15] MEDS: DESYREL PO SCH (22:30)
[2018-11-15] MEDS: INVEGA PO SCH (22:50)
--- NOTE | 2018-11-16 10:27 | Progress Note ---
Subjective - Reason for Consult Consult date: 11/16/18 Reason for consult: Psychiatry Follow-up - Chief Complaint Chief complaint: "Hello" 23-year-old AA female who presented to the ER for SI's and overdosing on several pills. This patient is known to me. Today the patient is cooperative during the assessment. She stated that she feel better, but still have passive SI's. She was more engaging today. She stated that she feel anxious internally about her future. She rate her depression/anxiety 6/10, with 10 being the worse. She denies HI's and AVH's. She denies any side effects of her medications. Mental Status Exam - Vital signs Last Vital Signs Temp 98 F 11/16/18 01:00 Pulse 65 11/16/18 01:00 Resp 16 11/16/18 01:00 BP 102/52 11/16/18 01:00 Pulse Ox 97 11/16/18 01:00 - Exam Narrative exam: MSE: Appearance: cooperative Behavior: regular eye contact Speech: regular rate and tone Mood: "okay" Affect: congruent to mood Thought Process: circumstantial Thought Content: denies HI and AVH's Motor Activity: ambulatory Cognition: A/Ox 3 Insight: variable Judgment: variable Assessment and Plan Impression: Bipolar DO. PTSD. Additional Dx: Unspecified Anxiety DO. Today patient is cooperative during the assessment. Intentional overdose. QTc 459. DDx: R/O MDD Recommendation/Plan: Continue 1013, Invega 3 mg PO HS for mood/psychosis, Prozac 20 mg PO daily for depression/anxiety, and Trazodone 50 mg PO HS for sleep.Start Buspar 7.5 mg PO BID for anxiety. Discussed possible suicidality/medication induced seth with patient reference antidepressants. Dispo: The patient was referred to inpatient psy services. Will staff with Dr James Humphrey.
[2018-11-16] MEDS: PROzac PO SCH (11:00)
[2018-11-16] MEDS ORDERED: GEODON IM ONE (11:11)
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
[2018-11-16] MEDS ORDERED: WATER FOR INJ (PF) ONE (11:24)
[2018-11-16] MEDS: BUSPAR PO SCH ×2 (11:26→22:20)
[2018-11-16] MEDS: DESYREL PO SCH (22:19)
[2018-11-16] MEDS: INVEGA PO SCH (22:30)
[2018-11-17] MEDS: BUSPAR PO SCH ×2 (09:34→19:58)
[2018-11-17] MEDS: PROzac PO SCH (09:34)
[2018-11-17] MEDS ORDERED: METOPROLOL PO SCH (18:30)
[2018-11-17] MEDS: LOPRESSOR PO SCH (19:30)
[2018-11-17] MEDS ORDERED: ATIVAN IM ONE (19:39)
[2018-11-17] MEDS ORDERED: ATIVAN ONE (19:42)
[2018-11-17] MEDS: DESYREL PO SCH (19:59)
[2018-11-17] MEDS ORDERED: GABAPENTIN 400 MG PO SCH (22:00)
[2018-11-17] MEDS ORDERED: MINIPRESS PO SCH (22:00)
[2018-11-17] MEDS: NEURONTIN PO SCH (22:00)
[2018-11-17] MEDS ORDERED: GLUCOPHAGE PO SCH (22:00)
[2018-11-17] MEDS ORDERED: NEURONTIN PO SCH (22:00)
[2018-11-17] MEDS: INVEGA PO SCH (22:02)
[2018-11-18] MEDS: PROzac PO SCH (11:00)
[2018-11-18] MEDS: NEURONTIN PO SCH ×2 (11:00→21:42)
[2018-11-18] MEDS: LOPRESSOR PO SCH (11:49)
[2018-11-18] MEDS: BUSPAR PO SCH ×2 (11:49→21:42)
--- NOTE | 2018-11-18 14:16 | Progress Note ---
Subjective - Reason for Consult Consult date: 11/18/18 Reason for consult: Psychiatry Follow-up - Chief Complaint Chief complaint: "I want to leave" 23-year-old AA female who presented to the ER for SI's and overdosing on several pills. This patient is known to me. Today the patient is cooperative, but withdrawn during the assessment. Per the notes, the patient was agitated yesterday. She could not logically explain to me the provider why she became a gitated. She stated, "I am good today." The patient denies HI's and AVH's. She stated that her SI's has decreased. She denies any side effects of her medications. She denies having nightmares (PTSD). Mental Status Exam - Vital signs Last Vital Signs Temp 97.5 F L 11/18/18 11:52 Pulse 88 11/18/18 11:52 Resp 18 11/18/18 11:52 BP 100/61 11/18/18 11:52 Pulse Ox 97 11/18/18 11:52 - Exam Narrative exam: MSE: Appearance: cooperative Behavior: regular eye contact Speech: regular rate and tone Mood: "okay" Affect: flat Thought Process: circumstantial Thought Content: denies HI and AVH's Motor Activity: ambulatory Cognition: A/Ox 3 Insight: variable Judgment: variable Assessment and Plan Impression: Bipolar DO. PTSD. Additional Dx: Unspecified Anxiety DO. Today patient is cooperative during the assessment. Intentional overdose. QTc 459. DDx: R/O MDD Recommendation/Plan: Continue 1013, and increase Invega to 6 mg PO HS for mood/psychosis. Continue Prozac 20 mg PO daily for depression/anxiety, Trazodone 50 mg PO HS for sleep, and Buspar 7.5 mg PO BID for anxiety. Discussed possible suicidality/medication induced seth with patient reference antidepressants. Dispo: The patient was referred to inpatient psy services. Will staff with Dr James Humphrey.
[2018-11-18] MEDS: DESYREL PO SCH (21:42)
[2018-11-18] MEDS: INVEGA PO SCH (21:42)
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
[2018-11-19] MEDS: PROzac PO SCH (11:46)
[2018-11-19] MEDS: LOPRESSOR PO SCH (11:46)
[2018-11-19] MEDS: BUSPAR PO SCH ×2 (11:46→23:00)
[2018-11-19] MEDS: NEURONTIN PO SCH ×2 (11:46→23:00)
[2018-11-19] MEDS: DESYREL PO SCH (23:00)
[2018-11-19] MEDS: INVEGA PO SCH (23:00)
--- NOTE | 2018-11-20 13:06 | Progress Note ---
Subjective - Reason for Consult Consult date: 11/20/18 Reason for consult: Psychiatry Follow-up - Chief Complaint Chief complaint: "I will do better" 23-year-old AA female who presented to the ER for SI's and overdosing on several pills. This patient is known to me. Today the patient is calm and cooperative during the assessment. She stated that [facility] She is adamant that her actions were unsafe. She denies SI/Hi's and AVH's. She denies any side effects of her medications. Mental Status Exam - Vital signs Last Vital Signs Temp 98 F 11/20/18 10:07 Pulse 98 H 11/20/18 10:07 Resp 18 11/20/18 10:07 BP 97/61 11/20/18 10:07 Pulse Ox 100 11/20/18 10:07 - Exam Narrative exam: MSE: Appearance: calm, cooperative Behavior: regular eye contact Speech: regular rate and tone Mood: "okay" Affect: congruent to mood Thought Process: linear Thought Content: denies SI/HI and AVH's Motor Activity: ambulatory Cognition: A/Ox 3 Insight: appropriate Judgment: appropriate Assessment and Plan Impression: Bipolar DO. PTSD. Additional Dx: Unspecified Anxiety DO. Today patient is calm and cooperative during the assessment. The patient is no threat to self. DDx: R/O MDD Suicide Risk Assessment I. This screening and assessment is based on information collected from the following sources: II. SUICIDE RISK SCREENING (within last 30 days): A.) Suicidal thoughts/behaviors: Yes SUICIDE RISK ASSESSMENT III. FACTORS THAT INCREASE RISK: A.) Demographic and Substance Use Factors: No B.) Current/Recent Factors (within past 3 months): Psychosocial/Environmental Factors: Life Stressors Physical Illness: None Cognitive/Psychological Factors: None C.) Historical Factors: None D.) Diagnostic/Symptom/Treatment Factors: None E.) Acute Risk Factor Severity (DESC; MILD/MOD/SEVERE): Mild Other factors for this individual that increase risk: None IV. FACTORS THAT DECREASE RISK: Resilience/Protective Factors: Patient want to decrease her stress Other factors for this individual that decrease risk: Patient denies a desire to harm self V. Clinician's Formulation of Risk and Determination of level of Care: This is a 23 y,o, female who ingested different pills to overdose prior to her arrival to the ER. She acknowledged that she should have not ingested the pills because that was an unsafe act. She stated that she will follow-up with outpatient psy services once discharged. She has become insightful about how to better address her current issues. The patient is not impaired by substance. She is able to take care of her ADLs and is not at imminent risk of harm to self or others. Consequently, it is the opinion of the treatment team that the patient is at low risk of suicide and does not meet criteria to continue an involuntary psychiatric hold. Estimation of Imminent Risk: Low due to the above explanation. Determination of Level of Care based on Suicide Risk: Outpatient follow-up. Narrative description of clinical reasoning. Given the fact that the patient is willing to engage in outpatient psy services care and has a supportive network (mother), it is reasonable to expect that the patient will seek services. She is regretful of the decision and has several things in his life to look forward to. At this current time, she is not impulsive and does not have any risk factors to increase the likelihood of her impulsive behavior. Therefore, it is reasonable to expect that the patient will engage in outpatient/rehab services which will reduce further unsafe behaviors. . Plan and Interventions based on Suicide Risk: This patient will likely be stepped down to an outpatient mental health center in the community upon discharge and follow-up within 7 days of her discharge from the hospital. VII. Discharge/After Hours Support Plan: Patient can return back to the ER, call 911 or crisis line if symptoms of depression, anxiety, suicidality return. Recommendation/Plan: Rescind 1013. Continue Invega 6 mg PO HS for mood/p sychosis, Prozac 20 mg PO daily for depression/anxiety, Trazodone 50 mg PO HS for sleep, and Buspar 7.5 mg PO BID for anxiety. Discussed possible suicidality/medication induced seth with patient reference antidepressants. Safety Contract completed with the patient. Dispo: The patient can follow up with [facility] for [facility] psy [facility]. Will staff with Dr Mimi Humphrey.
[2018-11-20] MEDS: LOPRESSOR PO SCH (13:28)
[2018-11-20] MEDS: NEURONTIN PO SCH (13:34)
[2018-11-20] MEDS: BUSPAR PO SCH (13:34)
[2018-11-20] MEDS: PROzac PO SCH (13:34)
[2018-11-20 17:16] VITALS: BP 119/82
== END 2018-11-20 17:05 | disposition home or self-care (01) ==
LOC: ED 17:35 → EEVIPCON 17:35 → ED 11-20 17:05
DX: T44.6X2A Poisoning by alpha-adrenoreceptor antagonists, intentional self-harm, initial encounter (principal); T45.0X2A Poisoning by antiallergic and antiemetic drugs, intentional self-harm, initial encounter; J45.909 Unspecified asthma, uncomplicated; F31.9 Bipolar disorder, unspecified; F20.9 Schizophrenia, unspecified; Z87.891 Personal history of nicotine dependence; Y92.89 Other specified places as the place of occurrence of the external cause
CPT/HCPCS: 36415; 80053; 80307; 81001; 81025; 85025; 93005; 93010; 96372; 99284; G0480; J2060; J3486; J7030; 80320; Q0177

== ENCOUNTER 2019-09-08 17:38 | Emergency (ER) | payer MEDICAID ==
[2019-09-08 17:56] VITALS: BP 130/72
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
== END 2019-09-08 18:38 | disposition home or self-care (01) ==
LOC: ED 17:38
DX: S46.912A Strain of unspecified muscle, fascia and tendon at shoulder and upper arm level, left arm, initial encounter (principal); J45.909 Unspecified asthma, uncomplicated; V43.92XA Unspecified car occupant injured in collision with other type car in traffic accident, initial encounter; Y93.89 Activity, other specified; Y92.410 Unspecified street and highway as the place of occurrence of the external cause; Y99.8 Other external cause status; Z87.891 Personal history of nicotine dependence; Z91.018 Allergy to other foods; Z79.899 Other long term (current) drug therapy

== ENCOUNTER 2021-03-18 09:38 | Emergency (ER) | payer MEDICAID ==
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
[2021-03-18 13:28] LABS: Hematocrit 36.8 % (30.3-42.9); Hemoglobin 12.6 gm/dl (10.1-14.3); Mean Corpuscular HGB Conc 34 % (30-34); Mean Corpuscular Volume 105 fl (79-97); Platelet Count 160 K/mm3 (140-440); Red Blood Count 3.51 M/mm3 (3.65-5.03); Red Cell Distribution Width 13.5 % (13.2-15.2)
[2021-03-18 13:37] LABS: Basophils % (Auto) 0.1 % (0.0-1.8); Eosinophils # (Auto) 0.1 K/mm3 (0.0-0.4); Lymphocytes # (Auto) 2.8 K/mm3 (1.2-5.4); Lymphocytes % (Auto) 36.6 % (13.4-35.0); Monocytes # (Auto) 1.1 K/mm3 (0.0-0.8); Monocytes % (Auto) 14.3 % (0.0-7.3)
[2021-03-18 13:53] LABS: Alanine Aminotransferase 14 units/L (7-56); Albumin 3.7 g/dL (3.9-5); Blood Urea Nitrogen 5 mg/dL (7-17); Calcium 9.3 mg/dL (8.4-10.2); Hemolysis Index 9
[2021-03-18 14:00] LABS: Amphetamine Screen,Urine Negative; Benzodiazepines Screen,Urine Negative; Cannabinoid Screen,Urine Negative; Cocaine Screen,Urine Negative; Methadone Screen,Urine Negative; Opiate Screen,Urine Negative
[2021-03-18 14:04] LABS: BUN/Creatinine Ratio 8
[2021-03-18 14:11] LABS: Bilirubin,Urine NEG (Negative); Blood,Urine NEG (Negative); Color,Urine Amber (Yellow); Mucus,Urine FEW /HPF
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
[2021-03-18] MEDS ORDERED: SODIUM CHLORIDE 0.9% 1000 ML 1,000 ML IV ONE (21:49)
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
--- NOTE | 2021-03-18 23:33 | Emergency Department Report ---
ED Dizziness HPI - General Chief Complaint: Medical Clearance Stated Complaint: MEDICATION Time Seen by Provider: 03/18/21 12:25 Source: patient Mode of arrival: Ambulatory Limitations: No Limitations - History of Present Illness Initial Comments: 25-year-old female, history of bipolar disorder, HIV, asthma, presents to ED for evaluation. Patient wants to know if her medications are causing her to be dizzy. Patient is on multiple medications. She reports some dizziness over the last 4 days. States she has fallen and hit her head. Patient reports mild headache. Patient denies any nausea, vomiting, diarrhea, fever, abdominal pain, chest pain, shortness of breath. Patient reports she was recently discharged from a psychiatric hospital in [place] with new prescriptions. She currently denies any SI, HI, hallucinations. MD Complaint: lightheadedness -: days(s) (1) Description: lightheadedness Severity: moderate Improves With: nothing Worsens With: movement Associated Symptoms: denies other symptoms, syncope. denies: chest pain, fever/chills, shortness of breath - Related Data Home Medications Medication Instructions Recorded Confirmed Last Taken AtorvaSTATin [Lipitor] 10 mg PO QHS 03/19/21 03/19/21 Unknown Benztropine Mesylate 1 mg PO BID 03/19/21 03/19/21 Unknown Bictegrav/Emtricit/Tenofov Ala 1 each PO DAILY 03/19/21 03/19/21 Unknown [Biktarvy 50-200-25 mg (Nf)] Bisacodyl [Women's Gentle Laxative] 5 mg PO HS 03/19/21 03/19/21 Unknown Buprenorphine/Naloxone [Suboxone 2 1 film SL QDAY 03/19/21 03/19/21 Unknown mg-0.5 mg] Chlorpromazine HCl 25 mg PO BID 03/19/21 03/19/21 Unknown Cholecalciferol Vit D3 [Vitamin D3 1,000 unit PO QDAY 03/19/21 03/19/21 Unknown 1,000 UNIT TAB] Divalproex Dr [DepaKOTE DR] 500 mg PO BID 03/19/21 03/19/21 Unknown Docusate Sodium [Colace] 300 mg PO DAILY PRN 03/19/21 03/19/21 Unknown Famotidine [Acid Controller] 20 mg PO BID 03/19/21 03/19/21 Unknown Folic Acid 1 mg PO DAILY 03/19/21 03/19/21 Unknown Menth/Me-Salicylate/[place] Oil 113 gm TP TID 03/19/21 03/19/21 Unknown [Castiva Cooling Lotion] Mirtazapine 7.5 mg PO HS 03/19/21 03/19/21 Unknown Thiamine HCl [Vitamin B-1] 100 mg PO DAILY 03/19/21 03/19/21 Unknown Topiramate [Topamax] 50 mg PO BID 03/19/21 03/19/21 Unknown Venlafaxine HCl [Effexor Xr] 75 mg PO DAILY 03/19/21 03/19/21 Unknown Allergies Allergy/AdvReac Type Severity Reaction Status Date / Time Fish Containing Products Allergy Rash Verified 03/18/21 09:58 turkey Allergy Rash Verified 03/18/21 09:59 beans Allergy Rash Uncoded 09/19/14 09:38 ED Review of Systems ROS: Stated complaint: MEDICATION Other details as noted in HPI Comment: All other systems reviewed and negative Constitutional: denies: fever Respiratory: denies: shortness of breath Cardiovascular: denies: chest pain Gastrointestinal: denies: abdominal pain, vomiting, diarrhea Neurological: headache Psychiatric: denies: auditory hallucinations, visual hallucinations, homicidal thoughts, suicidal thoughts ED Past Medical Hx - Past Medical History Hx Hypertension: No Hx CVA: No Hx Heart Attack/AMI: No Hx Congestive Heart Failure: No Hx Diabetes: No Hx Deep Vein Thrombosis: No Hx Pulmonary Embolism: No Hx GERD: No Hx Liver Disease: No Hx Renal Disease: No Hx Sickle Cell Disease: No Hx Arthritis: No Hx Headaches / Migraines: No Hx Seizures: No Hx Kidney Stones: No Hx Psychiatric Treatment: Yes (multiple IP stays, ANXIETY; schizophrenia; bipolar; PTSD; depression) Hx Asthma: Yes Hx COPD: No Hx Tuberculosis: No Hx Dementia: No Hx HIV: Yes (last CD4 count unknown) Additional medical history: Tetanus up to date per patient - Surgical History Hx Coronary Stent: No Hx Open Heart Surgery: No Hx Pacemaker: No Hx Internal Defibrillator: No Hx Cholecystectomy: No Hx Appendectomy: No Hx Breast Surgery: No Additional Surgical History: nexplanon at 18 years old ( control). kidney stone removal - Social History Smoking Status: Former Smoker Substance Use Type: Alcohol, Marijuana - Medications Home Medications: Home Medications Medication Instructions Recorded Confirmed Last Taken Type AtorvaSTATin [Lipitor] 10 mg PO QHS 03/19/21 03/19/21 Unknown History Benztropine Mesylate 1 mg PO BID 03/19/21 03/19/21 Unknown History Bictegrav/Emtricit/Tenofov Ala 1 each PO DAILY 03/19/21 03/19/21 Unknown History [Biktarvy 50-200-25 mg (Nf)] Bisacodyl [Women's Gentle Laxative] 5 mg PO HS 03/19/21 03/19/21 Unknown History Buprenorphine/Naloxone [Suboxone 2 1 film SL QDAY 03/19/21 03/19/21 Unknown History mg-0.5 mg] Chlorpromazine HCl 25 mg PO BID 03/19/21 03/19/21 Unknown History Cholecalciferol Vit D3 [Vitamin D3 1,000 unit PO QDAY 03/19/21 03/19/21 Unknown History 1,000 UNIT TAB] Divalproex Dr [DepaKOTE DR] 500 mg PO BID 03/19/21 03/19/21 Unknown History Docusate Sodium [Colace] 300 mg PO DAILY PRN 03/19/21 03/19/21 Unknown History Famotidine [Acid Controller] 20 mg PO BID 03/19/21 03/19/21 Unknown History Folic Acid 1 mg PO DAILY 03/19/21 03/19/21 Unknown History Menth/Me-Salicylate/[place] Oil 113 gm TP TID 03/19/21 03/19/21 Unknown History [Castiva Cooling Lotion] Mirtazapine 7.5 mg PO HS 03/19/21 03/19/21 Unknown History Thiamine HCl [Vitamin B-1] 100 mg PO DAILY 03/19/21 03/19/21 Unknown History Topiramate [Topamax] 50 mg PO BID 03/19/21 03/19/21 Unknown History Venlafaxine HCl [Effexor Xr] 75 mg PO DAILY 03/19/21 03/19/21 Unknown History ED Physical Exam - General Limitations: No Limitations General appearance: alert, in no apparent distress, obese - Head Head exam: Present: atraumatic, normocephalic - Eye Eye exam: Present: normal appearance, EOMI - ENT ENT exam: Present: mucous membranes moist - Neck Neck exam: Present: normal inspection - Respiratory Respiratory exam: Present: normal lung sounds bilaterally. Absent: respiratory distress - Cardiovascular Cardiovascular Exam: Present: normal rhythm, tachycardia - GI/Abdominal GI/Abdominal exam: Absent: distended - Extremities Exam Extremities exam: Present: normal inspection - Neurological Exam Neurological exam: Present: alert, oriented X3, CN II-XII intact. Absent: motor sensory deficit - Psychiatric Psychiatric exam: Present: normal affect, normal mood - Skin Skin exam: Present: warm, dry, intact, normal color ED Course Vital Signs 03/18/21 03/18/21 03/19/21 10:06 19:59 02:02 Temperature 98.5 F 98.2 F 97.7 F Pulse Rate 107 H 107 H 91 H Respiratory 18 18 18 Rate Blood Pressure 101/57 Blood Pressure 103/72 103/60 [Left] O2 Sat by Pulse 99 99 99 Oximetry ED Medical Decision Making - Lab Data Result diagrams: 03/18/21 13:05 03/18/21 13:05 - EKG Data -: EKG Interpreted by Wy EKG shows normal: sinus rhythm, axis, intervals, QRS complexes Rate: normal - EKG Data Interpretation: nonspecific ST-T wave toby - Radiology Data Radiology results: report reviewed, image reviewed - Medical Decision Making 25-year-old female presents to ED for evaluation of her medications. Patient states she believes her medications are causing her to be dizzy. She reports syncopal episode. CT head negative for any acute findings. Initial blood pressure low-normal. Patient is somewhat orthostatic. She was given 1 L bolus of IV fluids. Patient is taking 10+ medications. It is very likely that this is the cause of her dizziness. She has been referred to outpatient psychiatry. I will not be adjusting any of her medications here in the ED. Outpatient follow-up advised, return precautions given. Critical care attestation.: If time is entered above; I have spent that time in minutes in the direct care of this critically ill patient, excluding procedure time. ED Disposition Clinical Impression: Bipolar disorder, Syncope Disposition: DC-01 TO HOME OR SELFCARE Is pt being admited?: No Condition: Stable Instructions: Syncope, [id number], Syncope (ED) Referrals: PRIMARY CARE, [Primary Care Provider] - 3-5 Days MALATHI NAVAS MD [Staff Physician] - 3-5 Days [facility] [Provider Group] - 3-5 Days [facility] [Outside] - 3-5 Days Time of Disposition: 01:00
[2021-03-18] MEDS ORDERED: POTASSIUM CHLORIDE ER 20 MEQ TAB PO ONE (23:34)
[2021-03-19 02:16] VITALS: BP 103/60
--- NOTE | 2021-03-19 17:50 | Electrocardiograph Report ---
[facility] Test Date: 2021-03-18 Test Time: 12:50:36 Pat Name: AUDRA GUZMAN Department: Room: Gender: F Nurses Assistant: AUGUST : 1995 Requested By: LIZETH MALLOY Order Number: [id number] Reading MD: Hubert Story Measurements Intervals [place] Rate: 82 P: 54 WV: 137 QRS: 45 QRSD: 80 T: -59 QT: 394 QTc: 461 Interpretive Statements Sinus arrhythmia Borderline T abnormalities, diffuse leads No previous ECG available for comparison Electronically Signed On 03-19-2021 17:50:01 EDT by Hubert Story
== END 2021-03-19 05:37 | disposition home or self-care (01) ==
LOC: ED 09:38
DX: R55 Syncope and collapse (principal); F31.9 Bipolar disorder, unspecified; J45.909 Unspecified asthma, uncomplicated; F20.9 Schizophrenia, unspecified; Z87.442 Personal history of urinary calculi; F41.8 Other specified anxiety disorders; B20 Human immunodeficiency virus [HIV] disease; Z91.013 Allergy to seafood; Z91.018 Allergy to other foods
CPT/HCPCS: 36415; 70450; 80053; 80164; 80307; 81001; 84703; 85025; 93005; 96360; 99285; J7030; 80320; G0480

== ENCOUNTER 2021-06-18 02:12 | Emergency (ER) | payer MEDICAID ==
[2021-06-18] MEDS ORDERED: ACETAMINOPHEN 325 MG TAB PO ONE ×2 (06:15→15:24)
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
[2021-06-18 06:27] LABS: Basophils % (Auto) 0.2 % (0.0-1.8); Eosinophils % (Auto) 0.4 % (0.0-4.3); Hematocrit 35.1 % (30.3-42.9); Hemoglobin 11.5 gm/dl (10.1-14.3); Lymphocytes # (Auto) 2.8 K/mm3 (1.2-5.4); Lymphocytes % (Auto) 35.6 % (13.4-35.0); Mean Corpuscular HGB Conc 33 % (30-34); Mean Corpuscular Volume 99 fl (79-97); Monocytes # (Auto) 0.8 K/mm3 (0.0-0.8); Monocytes % (Auto) 9.8 % (0.0-7.3); Platelet Count 216 K/mm3 (140-440); Red Blood Count 3.54 M/mm3 (3.65-5.03); Red Cell Distribution Width 12.5 % (13.2-15.2)
[2021-06-18 06:52] LABS: Blood Urea Nitrogen 9 mg/dL (7-17); Calcium 8.7 mg/dL (8.4-10.2); Hemolysis Index 6
[2021-06-18 06:57] LABS: BUN/Creatinine Ratio 18
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
[2021-06-18] MEDS ORDERED: NON-FORMULARY EACH (Bictegrav/Emtricit/Tenofov Ala 1 EACH Tablet) PO SCH (12:15)
[2021-06-18 15:49] LABS: Bilirubin,Urine NEG (Negative); Blood,Urine LG (Negative); Color,Urine Yellow (Yellow); Mucus,Urine FEW /HPF; Urobilinogen,Urine < 2.0 mg/dL (<2.0)
[2021-06-18] MEDS: DIVALPROEX DR 500 MG TAB PO SCH ×2 (15:55→21:57)
[2021-06-18] MEDS: chlorproMAZINE 25 MG TAB PO SCH ×2 (15:55→21:57)
[2021-06-18] MEDS: BENZTROPINE 1 MG TAB PO SCH ×2 (15:55→21:57)
[2021-06-18 15:56] LABS: Amphetamine Screen,Urine Negative; Benzodiazepines Screen,Urine Negative; Cannabinoid Screen,Urine Negative; Cocaine Screen,Urine Negative; HCG Qualitative,Urine Negative (Negative); Methadone Screen,Urine Negative; Opiate Screen,Urine Negative
[2021-06-19 08:16] VITALS: BP 111/69
[2021-06-19] MEDS: BENZTROPINE 1 MG TAB PO SCH (10:42)
[2021-06-19] MEDS: DIVALPROEX DR 500 MG TAB PO SCH (10:42)
[2021-06-19] MEDS: chlorproMAZINE 25 MG TAB PO SCH (10:42)
--- NOTE | 2021-06-19 11:07 | Progress Note ---
Subjective - Reason for Consult Consult date: 06/19/21 Reason for consult: Mental health evaluation - Chief Complaint Chief complaint: The patient was seen this morning, she reports doing well. She reports sleep and appetitie as good. The patient denies any current suicidal/homicidal ideation and denies hallucinations. REVIEW OF SYSTEMS Constitutional: Negative for weight loss ENT: Negative for stridor Respiratory: Negative for cough or hemoptysis All other systems reviewed and are negative MENTAL STATUS EXAMINATION General Appearance and Behavior: Age appropriate, good hygiene, wearing approp riate clothes. calm, cooperative Cooperation: Cooperative Psychomotor Behavior: Psychomotor normal Mood: OK Affect and affective range: congruent with stated mood Thought Process: goal directed Thought Content: Not suicidal Speech: normal tone and pace Suicidal Ideation:Denies Homicidal Ideation: Denies Hallucinations: Denies Delusions: None elicited Impulse Control: Normal Insight and Judgment: Limited Memory: Limited Attention: attentive Orientation: a/o x 3 Assessment (1)Schizoaffective Disorder Current Visit: Yes Status: Acute Treatment Plan Discontinue 1013 Continue previously prescribed medications. The patient to comply with previously prescribed medications Risks, benefits and alternatives of medications discussed with the patient, questions answered and consent obtained from patient. PSYCHOTHERAPY: Supportive psychotherapy provided MEDICAL: Per primary team DELIRIUM PRECAUTIONS: Please re-orient patient frequently, keep lights on during the day, and minimize benzodiazepines and opiates as these medications could worsen patient's confusion. PRODUCTION SUPPORT MANAGER: Defer to primary DISPOSITION: Do not recommend acute psychiatric inpatient treatment. Impregnating Tank Operator will provide patient with psychiatry outpatient resources The sitter to give the patient resources and safety plan The patient to comply with treatment regimen and abstain from all illicit drug use. FOLLOW-UP: Will sign off. Case staffed with Dr. Richardson Medications and Allergies Mental Status Exam - Vital signs Last Vital Signs Temp 97.8 F 06/19/21 08:15 Pulse 68 06/19/21 08:15 Resp 20 06/19/21 08:15 BP 111/69 06/19/21 08:15 Pulse Ox 100 06/19/21 08:15
--- NOTE | 2021-06-19 11:45 | Event Note ---
Date: 06/19/21 The patient was evaluated in the emergency department for symptoms described in the history of present illness. He/she was evaluated in the context of the global COVID-19 pandemic, which necessitated consideration that the patient might be at risk for infection with the virus that causes COVID-19. Institutional protocols and algorithms that pertain to the evaluation of patients at risk for COVID-19 are in a state of rapid change based on information released by regulatory bodies including the CDC and federal and state organizations. These policies and algorithms were followed during the patient's care in the emergency department. Please note that these policies, procedures and recommendations changed on a rapid basis. Laboratory studies, vital signs, nursing documentation, ER documentation, and psychiatric documentation are reviewed and appreciated. Nursing team reports no acute events this morning or concerns. The patient is awake and ambulating and does not appear to be in any acute distress. Patient was deemed medically suitable for psychiatric placement and disposition during her initial ER evaluation. The psychiatric team have recommended that the patient does not require 1013 or involuntary hold at this time. Laboratory studies, vital signs, nursing and ER documentation reviewed and appreciated. Psychiatric medications have been filled out and ordered by the psychiatric nurse practitioner. The patient may follow-up with her outpatient primary care doctor to have her nonpsychiatric medications refilled/adjusted. Vital Signs 06/18/21 06/18/21 06/18/21 02:13 04:47 10:00 Temperature 98.9 F 96.9 F L 97.7 F Pulse Rate 72 87 88 Respiratory 16 17 18 Rate Blood Pressure 124/74 120/76 114/75 [Left] O2 Sat by Pulse 100 99 100 Oximetry 06/18/21 06/19/21 19:30 08:15 Temperature 97.6 F 97.8 F Pulse Rate 62 68 Respiratory 16 20 Rate Blood Pressure 117/63 111/69 [Left] O2 Sat by Pulse 99 100 Oximetry Lab Results 06/18/21 06/18/21 06/18/21 Range/Units 06:18 06:18 06:18 WBC 7.8 (4.5-11.0) K/mm3 RBC 3.54 L (3.65-5.03) M/mm3 Hgb 11.5 (10.1-14.3) gm/dl Hct 35.1 (30.3-42.9) % MCV 99 H (79-97) fl MCH 33 H (28-32) pg MCHC 33 (30-34) % RDW 12.5 L (13.2-15.2) % Plt Count 216 (140-440) K/mm3 Lymph % (Auto) 35.6 H (13.4-35.0) % [place] % (Auto) 9.8 H (0.0-7.3) % Eos % (Auto) 0.4 (0.0-4.3) % Baso % (Auto) 0.2 (0.0-1.8) % Lymph # (Auto) 2.8 (1.2-5.4) K/mm3 [place] # (Auto) 0.8 (0.0-0.8) K/mm3 Eos # (Auto) 0.0 (0.0-0.4) K/mm3 Baso # (Auto) 0.0 (0.0-0.1) K/mm3 Seg Neutrophils % 54.0 (40.0-70.0) % Seg Neutrophils # 4.2 (1.8-7.7) K/mm3 Sodium 143 (137-145) mmol/L Potassium 3.8 (3.6-5.0) mmol/L Chloride 108.9 H (98-107) mmol/L Carbon Dioxide 26 (22-30) mmol/L Anion Gap 12 mmol/L BUN 9 (7-17) mg/dL Creatinine 0.5 L (0.6-1.2) mg/dL Estimated GFR > 60 ml/min BUN/Creatinine Ratio 18 % Glucose 104 H (65-100) mg/dL Calcium 8.7 (8.4-10.2) mg/dL Urine Color (Yellow) Urine Turbidity (Clear) Urine pH (5.0-7.0) Ur Specific [place] (1.003-1.030) Urine Protein (Negative) mg/dL Urine Glucose (UA) (Negative) mg/dL Urine Ketones (Negative) mg/dL Urine Blood (Negative) Urine Nitrite (Negative) Urine Bilirubin (Negative) Urine Urobilinogen (<2.0) mg/dL Ur Leukocyte Esterase (Negative) Urine WBC (Auto) (0.0-6.0) /HPF Urine RBC (Auto) (0.0-6.0) /HPF U Epithel Cells (Auto) (0-13.0) /HPF Urine Mucus /HPF Urine HCG, Qual (Negative) Urine Opiates Screen Urine Methadone Screen Ur Barbiturates Screen Ur Phencyclidine Scrn Ur Amphetamines Screen U Benzodiazepines Scrn Urine Cocaine Screen U Marijuana (THC) Screen Drugs of Abuse Note Plasma/Serum Alcohol < 0.01 (0-0.07) % Coronavirus (PCR) (Negative) 06/18/21 06/18/21 06/18/21 Range/Units Unknown Unknown Unknown WBC (4.5-11.0) K/mm3 RBC (3.65-5.03) M/mm3 Hgb (10.1-14.3) gm/dl Hct (30.3-42.9) % MCV (79-97) fl MCH (28-32) pg MCHC (30-34) % RDW (13.2-15.2) % Plt Count (140-440) K/mm3 Lymph % (Auto) (13.4-35.0) % [place] % (Auto) (0.0-7.3) % Eos % (Auto) (0.0-4.3) % Baso % (Auto) (0.0-1.8) % Lymph # (Auto) (1.2-5.4) K/mm3 [place] # (Auto) (0.0-0.8) K/mm3 Eos # (Auto) (0.0-0.4) K/mm3 Baso # (Auto) (0.0-0.1) K/mm3 Seg Neutrophils % (40.0-70.0) % Seg Neutrophils # (1.8-7.7) K/mm3 Sodium (137-145) mmol/L Potassium (3.6-5.0) mmol/L Chloride (98-107) mmol/L Carbon Dioxide (22-30) mmol/L Anion Gap mmol/L BUN (7-17) mg/dL Creatinine (0.6-1.2) mg/dL Estimated GFR ml/min BUN/Creatinine Ratio % Glucose (65-100) mg/dL Calcium (8.4-10.2) mg/dL Urine Color Yellow (Yellow) Urine Turbidity Clear (Clear) Urine pH 5.0 (5.0-7.0) Ur Specific [place] 1.020 (1.003-1.030) Urine Protein 100 mg/dl (Negative) mg/dL Urine Glucose (UA) Neg (Negative) mg/dL Urine Ketones Neg (Negative) mg/dL Urine Blood Lg (Negative) Urine Nitrite Neg (Negative) Urine Bilirubin Neg (Negative) Urine Urobilinogen < 2.0 (<2.0) mg/dL Ur Leukocyte Esterase Neg (Negative) Urine WBC (Auto) 3.0 (0.0-6.0) /HPF Urine RBC (Auto) 1.0 (0.0-6.0) /HPF U Epithel Cells (Auto) 9.0 (0-13.0) /HPF Urine Mucus Few /HPF Urine HCG, Qual (Negative) Urine Opiates Screen Negative Urine Methadone Screen Negative Ur Barbiturates Screen Negative Ur Phencyclidine Scrn Negative Ur Amphetamines Screen Negative U Benzodiazepines Scrn Negative Urine Cocaine Screen Negative U Marijuana (THC) Screen Negative Drugs of Abuse Note Disclamer Plasma/Serum Alcohol (0-0.07) % Coronavirus (PCR) Negative (Negative) 06/18/21 Range/Units Unknown WBC (4.5-11.0) K/mm3 RBC (3.65-5.03) M/mm3 Hgb (10.1-14.3) gm/dl Hct (30.3-42.9) % MCV (79-97) fl MCH (28-32) pg MCHC (30-34) % RDW (13.2-15.2) % Plt Count (140-440) K/mm3 Lymph % (Auto) (13.4-35.0) % [place] % (Auto) (0.0-7.3) % Eos % (Auto) (0.0-4.3) % Baso % (Auto) (0.0-1.8) % Lymph # (Auto) (1.2-5.4) K/mm3 [place] # (Auto) (0.0-0.8) K/mm3 Eos # (Auto) (0.0-0.4) K/mm3 Baso # (Auto) (0.0-0.1) K/mm3 Seg Neutrophils % (40.0-70.0) % Seg Neutrophils # (1.8-7.7) K/mm3 Sodium (137-145) mmol/L Potassium (3.6-5.0) mmol/L Chloride (98-107) mmol/L Carbon Dioxide (22-30) mmol/L Anion Gap mmol/L BUN (7-17) mg/dL Creatinine (0.6-1.2) mg/dL Estimated GFR ml/min BUN/Creatinine Ratio % Glucose (65-100) mg/dL Calcium (8.4-10.2) mg/dL Urine Color (Yellow) Urine Turbidity (Clear) Urine pH (5.0-7.0) Ur Specific [place] (1.003-1.030) Urine Protein (Negative) mg/dL Urine Glucose (UA) (Negative) mg/dL Urine Ketones (Negative) mg/dL Urine Blood (Negative) Urine Nitrite (Negative) Urine Bilirubin (Negative) Urine Urobilinogen (<2.0) mg/dL Ur Leukocyte Esterase (Negative) Urine WBC (Auto) (0.0-6.0) /HPF Urine RBC (Auto) (0.0-6.0) /HPF U Epithel Cells (Auto) (0-13.0) /HPF Urine Mucus /HPF Urine HCG, Qual Negative (Negative) Urine Opiates Screen Urine Methadone Screen Ur Barbiturates Screen Ur Phencyclidine Scrn Ur Amphetamines Screen U Benzodiazepines Scrn Urine Cocaine Screen U Marijuana (THC) Screen Drugs of Abuse Note Plasma/Serum Alcohol (0-0.07) % Coronavirus (PCR) (Negative)
== END 2021-06-19 12:49 | disposition home or self-care (01) ==
LOC: EEVIPCON 02:12 → ED 02:12
DX: R45.851 Suicidal ideations (principal); F20.9 Schizophrenia, unspecified; F41.9 Anxiety disorder, unspecified; Z20.822 Contact with and (suspected) exposure to COVID-19; J45.909 Unspecified asthma, uncomplicated; F31.9 Bipolar disorder, unspecified; F12.90 Cannabis use, unspecified, uncomplicated; Z87.891 Personal history of nicotine dependence; Z72.89 Other problems related to lifestyle; Z88.8 Allergy status to other drugs, medicaments and biological substances; Z91.013 Allergy to seafood; Z79.899 Other long term (current) drug therapy
CPT/HCPCS: 36415; 80048; 80307; 81001; 81025; 85025; 99284; Q0161; U0003; 80320; G0480

== ENCOUNTER 2021-06-23 21:28 | Emergency (ER) | payer MEDICAID ==
[2021-06-23] MEDS ORDERED: KETOROLAC 60 MG/2 ML INJ IM ONE (22:51)
[2021-06-23] MEDS ORDERED: oxyCODONE /ACETAMINOPHEN 5-325MG TAB PO ONE (22:51)
[2021-06-23] MEDS ORDERED: ONDANSETRON 4 MG ODT TAB PO ONE (22:51)
[2021-06-23] MEDS ORDERED: predniSONE 20 MG TAB PO ONE (22:51)
--- NOTE | 2021-06-24 01:13 | Emergency Department Report ---
ED Back Pain/Injury HPI - General Chief Complaint: Back Pain/Injury Stated Complaint: BACK PAIN Source: patient, EMS Limitations: Physical Limitation - History of Present Illness Initial Comments: Patient is a 26-year-old white female with a history of HIV, chronic lumbar degenerative disc disease and disc herniation, chronic back pain who presents to the ED with complaint of acute exacerbation of her chronic low back pain for the last 1 week, worse in the last 2 days. Patient states that she usually takes Percocet 5 mg - 325 mg but she does not have the medicines with her because it remained in her mother's house and she is currently living at a intermediate. Patient states that the pain she is experiencing is consistent with her chronic back pain with acute exacerbation because she has not taken her medication for pain. Patient denies fall, traumatic injury, dizziness, syncope, chest pain, shortness of breath, fever, chills, dysuria, urinary frequency and urgency, abdominal pain, numbness and tingling or weakness of upper and lower extremities bilaterally. MD Complaint: back pain -: Gradual, month(s) (12), year(s) (1) Similar Symptoms Previously: Yes (Chronic low back pain) Place: home Radiation: left leg, right leg Severity: severe Severity scale (0 -10): 8 Quality: sharp, stabbing, aching Consistency: constant Improves With: none Worsens With: movement, walking Context: while lifting, turning/twisting Associated Symptoms: denies other symptoms. denies: confusion, weakness, chest pain, numbness, difficulty walking, cough, difficulty urinating, diaphoresis, incontinence, fever/chills, constipation, headaches, abdominal pain, loss of appetite, nausea/vomiting, rash, seizure, shortness of breath, syncope - Related Data Home Medications Medication Instructions Recorded Confirmed Last Taken AtorvaSTATin [Lipitor] 10 mg PO QHS 03/19/21 03/19/21 Unknown Benztropine Mesylate 1 mg PO BID 03/19/21 03/19/21 Unknown Bictegrav/Emtricit/Tenofov Ala 1 each PO DAILY 03/19/21 03/19/21 Unknown [Biktarvy 50-200-25 mg (Nf)] Bisacodyl [Women's Gentle Laxative] 5 mg PO HS 03/19/21 03/19/21 Unknown Buprenorphine/Naloxone [Suboxone 2 1 film SL QDAY 03/19/21 03/19/21 Unknown mg-0.5 mg] Chlorpromazine HCl 25 mg PO BID 03/19/21 03/19/21 Unknown Cholecalciferol Vit D3 [Vitamin D3 1,000 unit PO QDAY 03/19/21 03/19/21 Unknown 1,000 UNIT TAB] Allenproarron Gaitan [Simeon GAITAN] 500 mg PO BID 03/19/21 03/19/21 Unknown Docusate Sodium [Colace] 300 mg PO DAILY PRN 03/19/21 03/19/21 Unknown Famotidine [Acid Controller] 20 mg PO BID 03/19/21 03/19/21 Unknown Folic Acid 1 mg PO DAILY 03/19/21 03/19/21 Unknown Menth/Me-Salicylate/Sweet Home Oil 113 gm TP TID 03/19/21 03/19/21 Unknown [Castiva Cooling Lotion] Mirtazapine 7.5 mg PO HS 03/19/21 03/19/21 Unknown Thiamine HCl [Vitamin B-1] 100 mg PO DAILY 03/19/21 03/19/21 Unknown Topiramate [Topamax] 50 mg PO BID 03/19/21 03/19/21 Unknown Venlafaxine HCl [Effexor Xr] 75 mg PO DAILY 03/19/21 03/19/21 Unknown Previous Rx's Medication Instructions Recorded Last Taken Type Benztropine [Cogentin] 1 mg PO BID 30 Days #60 tab 06/19/21 Unknown Rx Divalproex [Simeon GAITAN] 500 mg PO BID 30 Days #60 tablet 06/19/21 Unknown Rx chlorproMAZINE [Thorazine] 25 mg PO BID 30 Days #60 tablet 06/19/21 Unknown Rx Baclofen 20 mg PO Q12H PRN #20 tablet 06/24/21 Unknown Rx Gabapentin 300 mg PO Q12H #30 cap 06/24/21 Unknown Rx Naproxen 500 mg PO Q12H PRN #30 tablet 06/24/21 Unknown Rx predniSONE [Deltasone] 40 mg PO QDAY #10 tab 06/24/21 Unknown Rx Allergies Allergy/AdvReac Type Severity Reaction Status Date / Time Fish Containing Products Allergy Rash Verified 03/18/21 09:58 haloperidol [From Haldol] Allergy Angioedema Verified 06/18/21 02:28 turkey Allergy Rash Verified 03/18/21 09:59 beans Allergy Rash Uncoded 09/19/14 09:38 ED Review of Systems ROS: Stated complaint: BACK PAIN Other details as noted in HPI Constitutional: denies: chills, fever Eyes: denies: eye pain, eye discharge, vision change ENT: denies: ear pain, throat pain Respiratory: denies: cough, shortness of breath, wheezing Cardiovascular: denies: chest pain, palpitations Endocrine: no symptoms reported Gastrointestinal: denies: abdominal pain, nausea, diarrhea Genitourinary: denies: urgency, dysuria, discharge Musculoskeletal: back pain (Chronic low back pain), arthralgia, other (Muscle spasm). denies: joint swelling Skin: denies: rash, lesions Neurological: denies: headache, weakness, paresthesias Psychiatric: denies: anxiety, depression Hematological/Lymphatic: denies: easy bleeding, easy bruising ED Past Medical Hx - Past Medical History Hx Hypertension: No Hx CVA: No Hx Heart Attack/AMI: No Hx Congestive Heart Failure: No Hx Diabetes: No Hx Deep Vein Thrombosis: No Hx Pulmonary Embolism: No Hx GERD: No Hx Liver Disease: No Hx Renal Disease: No Hx Sickle Cell Disease: No Hx Arthritis: No Hx Headaches / Migraines: No Hx Seizures: No Hx Kidney Stones: No Hx Psychiatric Treatment: Yes (multiple IP stays, ANXIETY; schizophrenia; bipolar; PTSD; depression) Hx Asthma: Yes Hx COPD: No Hx Tuberculosis: No Hx Dementia: No Hx HIV: Yes (last CD4 count unknown) Additional medical history: Tetanus up to date per patient - Surgical History Hx Coronary Stent: No Hx Open Heart Surgery: No Hx Pacemaker: No Hx Internal Defibrillator: No Hx Cholecystectomy: No Hx Appendectomy: No Hx Breast Surgery: No Additional Surgical History: nexplanon at 18 years old ( control). kidney stone removal - Social History Smoking Status: Former Smoker Substance Use Type: Alcohol, Marijuana - Medications Home Medications: Home Medications Medication Instructions Recorded Confirmed Last Taken Type AtorvaSTATin [Lipitor] 10 mg PO QHS 03/19/21 03/19/21 Unknown History Benztropine Mesylate 1 mg PO BID 03/19/21 03/19/21 Unknown History Bictegrav/Emtricit/Tenofov Ala 1 each PO DAILY 03/19/21 03/19/21 Unknown History [Biktarvy 50-200-25 mg (Nf)] Bisacodyl [Women's Gentle Laxative] 5 mg PO HS 03/19/21 03/19/21 Unknown History Buprenorphine/Naloxone [Suboxone 2 1 film SL QDAY 03/19/21 03/19/21 Unknown History mg-0.5 mg] Chlorpromazine HCl 25 mg PO BID 03/19/21 03/19/21 Unknown History Cholecalciferol Vit D3 [Vitamin D3 1,000 unit PO QDAY 03/19/21 03/19/21 Unknown History 1,000 UNIT TAB] Divalproarron Gaitan [Simeon GAITAN] 500 mg PO BID 03/19/21 03/19/21 Unknown History Docusate Sodium [Colace] 300 mg PO DAILY PRN 03/19/21 03/19/21 Unknown History Famotidine [Acid Controller] 20 mg PO BID 03/19/21 03/19/21 Unknown History Folic Acid 1 mg PO DAILY 03/19/21 03/19/21 Unknown History Menth/Me-Salicylate/[place] Oil 113 gm TP TID 03/19/21 03/19/21 Unknown History [Castiva Cooling Lotion] Mirtazapine 7.5 mg PO HS 03/19/21 03/19/21 Unknown History Thiamine HCl [Vitamin B-1] 100 mg PO DAILY 03/19/21 03/19/21 Unknown History Topiramate [Topamax] 50 mg PO BID 03/19/21 03/19/21 Unknown History Venlafaxine HCl [Effexor Xr] 75 mg PO DAILY 03/19/21 03/19/21 Unknown History Benztropine [Cogentin] 1 mg PO BID 30 Days #60 tab 06/19/21 Unknown Rx Divalproex [Simeon GAITAN] 500 mg PO BID 30 Days #60 tablet 06/19/21 Unknown Rx chlorproMAZINE [Thorazine] 25 mg PO BID 30 Days #60 tablet 06/19/21 Unknown Rx Baclofen 20 mg PO Q12H PRN #20 tablet 06/24/21 Unknown Rx Gabapentin 300 mg PO Q12H #30 cap 06/24/21 Unknown Rx Naproxen 500 mg PO Q12H PRN #30 tablet 06/24/21 Unknown Rx predniSONE [Deltasone] 40 mg PO QDAY #10 tab 06/24/21 Unknown Rx ED Physical Exam - General Limitations: Physical Limitation General appearance: alert, in no apparent distress - Head Head exam: Present: atraumatic, normocephalic, normal inspection - Eye Eye exam: Present: normal appearance, PERRL, EOMI Pupils: Present: normal accommodation - ENT ENT exam: Present: normal exam, normal orophraynx, mucous membranes moist, TM's normal bilaterally, normal external ear exam - Neck Neck exam: Present: normal inspection, full ROM. Absent: tenderness - Respiratory Respiratory exam: Present: normal lung sounds bilaterally. Absent: respiratory distress, wheezes, rales, stridor, chest wall tenderness, accessory muscle use, prolonged expiratory - Cardiovascular Cardiovascular Exam: Present: regular rate, normal rhythm, normal heart sounds. Absent: systolic murmur, diastolic murmur, rubs, gallop - GI/Abdominal GI/Abdominal exam: Present: soft, normal bowel sounds. Absent: tenderness, guarding, rebound, hyperactive bowel sounds, hypoactive bowel sounds, organomegaly, mass - Extremities Exam Extremities exam: Present: normal inspection, full ROM, normal capillary refill. Absent: tenderness - Back Exam Back exam: Present: normal inspection, full ROM, tenderness (Palpable lumbosacral paraspinal musculoskeletal tenderness), muscle spasm, paraspinal tenderness. Absent: vertebral tenderness - Neurological Exam Neurological exam: Present: alert, oriented X3, CN II-XII intact, normal gait, reflexes normal - Psychiatric Psychiatric exam: Present: normal affect, normal mood, anxious - Skin Skin exam: Present: warm, dry, intact, normal color. Absent: rash ED Course Vital Signs 06/23/21 21:38 Temperature 98.7 F Pulse Rate 92 H Respiratory 20 Rate Blood Pressure 157/88 [Right] O2 Sat by Pulse 100 Oximetry ED Medical Decision Making - Medical Decision Making This is a 26-year-old white female with a history of HIV, chronic lumbar degenerative disc disease and disc herniation, chronic back pain who presents to the ED with complaint of acute exacerbation of her chronic low back pain for the last 1 week, worse in the last 2 days. Patient states that she usually takes Percocet 5 mg - 325 mg but she does not have the medicines with her because it remained in her mother's house and she is currently living at a intermediate. Patient states that the pain she is experiencing is consistent with her chronic back pain with acute exacerbation because she has not taken her medication for pain. In the ED, patient is alert and oriented x3 and is not in any distress. Patient was treated for pain in the ED and on reevaluation, patient's pain is well controlled medication. Patient will discharge home on pain medications and muscle relaxants and advised to follow-up with her primary care physician in 7 to 10 days for reevaluation or return to the ED immediately if symptoms get worse. - Differential Diagnosis Muscle spasm; chronic pain; chronic sciatica Critical care attestation.: If time is entered above; I have spent that time in minutes in the direct care of this critically ill patient, excluding procedure time. ED Disposition Clinical Impression: Spasm of muscle of lower back Chronic low back pain with bilateral sciatica Qualifiers: Back pain laterality: unspecified Qualified Code(s): M54.41 - Lumbago with sciatica, right side; M54.42 - Lumbago with sciatica, left side; G89.29 - Other chronic pain Chronic bilateral back pain Qualifiers: Back pain location: back pain in unspecified location Qualified Code(s): M54.9 - Dorsalgia, unspecified; G89.29 - Other chronic pain Disposition: 01 HOME / SELF CARE / HOMELESS Is pt being admited?: No Does the pt Need Aspirin: No Condition: Stable Instructions: Chronic Back Pain, [id number], Sciatica, [id number], Muscle Cramps and Spasms Additional Instructions: Take medication with food, drink plenty of fluids and follow-up with your primary care physician in 5 to 7 days for reevaluation. Return to the ED immediately if symptoms get worse Prescriptions: Baclofen 20 mg PO Q12H PRN #20 tablet PRN Reason: Muscle Spasm predniSONE [Deltasone] 40 mg PO QDAY #10 tab Gabapentin 300 mg PO Q12H #30 cap Naproxen 500 mg PO Q12H PRN #30 tablet PRN Reason: Pain , Severe (7-10) Referrals: AHSAN LEE MD [Primary Care Provider] - 3-5 Days Time of Disposition: 01:11 Print Language: ROMANSH
[2021-06-24 02:13] VITALS: BP 148/72
== END 2021-06-24 02:12 | disposition home or self-care (01) ==
LOC: ED 21:28
DX: M54.41 Lumbago with sciatica, right side (principal); M54.42 Lumbago with sciatica, left side; G89.29 Other chronic pain; M62.830 Muscle spasm of back; M54.9 Dorsalgia, unspecified; J45.909 Unspecified asthma, uncomplicated; F12.90 Cannabis use, unspecified, uncomplicated; Z87.891 Personal history of nicotine dependence; Z72.89 Other problems related to lifestyle; Z91.013 Allergy to seafood; Z91.018 Allergy to other foods; Z79.899 Other long term (current) drug therapy
CPT/HCPCS: 96372; 99283; J1885; J7512; Q0162

== ENCOUNTER 2022-02-22 17:26 | Emergency (ER) | payer MEDICAID ==
[2022-02-22] MEDS ORDERED: TETANUS,DIPH,PERTUSS(ACELL) VACCINE 0.5 ML SYRINGE IM ONE (17:54)
[2022-02-22] MEDS ORDERED: LORazepam 2 MG/ML VIAL IM PRN (17:54)
[2022-02-22] MEDS ORDERED: ZIPRASIDONE MESYLATE 20 MG VIAL IM PRN (17:55)
--- NOTE | 2022-02-22 17:56 | Emergency Department Report ---
ED General Adult HPI - General Chief complaint: Psych Stated complaint: MH EVALUATION Time Seen by Provider: 02/22/22 17:48 Source: patient, EMS ( EMS documentation not available at time of chart dictation ), RN notes reviewed, old records reviewed Mode of arrival: Stretcher Limitations: Other (Psychosis and disorganized behavior) - History of Present Illness Initial comments: The patient was evaluated in the emergency department for symptoms described in the history of present illness. He/she was evaluated in the context of the global COVID-19 pandemic, which necessitated consideration that the patient might be at risk for infection with the virus that causes COVID-19. Institutional protocols and algorithms that pertain to the evaluation of p atients at risk for COVID-19 are in a state of rapid change based on information released by regulatory bodies including the CDC and federal and state organizations. These policies and algorithms were followed during the patient's care in the emergency department. Please note that these policies, procedures and recommendations changed on a rapid basis. This is a 26-year-old female who is morbidly obese who presents to the ER today with a complaint of being homeless, feeling homicidal and suicidal, wanting to hurt herself. She states that she is taking a rock and hitting her head. She a lso reports that she attempted to self mutilate her left upper extremity a few days ago. The patient is disorganized and psychotic. The patient states that she walked here. The patient states that she is off of her medications. The patient complains of a mild headache. The patient also endorses chronic lower extremity musculoskeletal pain. Location: head, left, right, lower extremity Quality: aching Consistency: constant Improves with: rest Worsens with: movement - Related Data Home Medications Medication Instructions Recorded Confirmed Last Taken AtorvaSTATin [Lipitor] 10 mg PO QHS 03/19/21 03/19/21 Unknown Benztropine Mesylate 1 mg PO BID 03/19/21 03/19/21 Unknown Bictegrav/Emtricit/Tenofov Ala 1 each PO DAILY 03/19/21 03/19/21 Unknown [Biktarvy 50-200-25 mg (Nf)] Bisacodyl [Women's Gentle Laxative] 5 mg PO HS 03/19/21 03/19/21 Unknown Buprenorphine/Naloxone [Suboxone 2 1 film SL QDAY 03/19/21 03/19/21 Unknown mg-0.5 mg] Chlorpromazine HCl 25 mg PO BID 03/19/21 03/19/21 Unknown Cholecalciferol Vit D3 [Vitamin D3 1,000 unit PO QDAY 03/19/21 03/19/21 Unknown 1,000 UNIT TAB] Amalia Gaitan [Simeon GAITAN] 500 mg PO BID 03/19/21 03/19/21 Unknown Docusate Sodium [Colace] 300 mg PO DAILY PRN 03/19/21 03/19/21 Unknown Famotidine [Acid Controller] 20 mg PO BID 03/19/21 03/19/21 Unknown Folic Acid 1 mg PO DAILY 03/19/21 03/19/21 Unknown Menth/Me-Salicylate/[place] Oil 113 gm TP TID 03/19/21 03/19/21 Unknown [Castiva Cooling Lotion] Mirtazapine 7.5 mg PO HS 03/19/21 03/19/21 Unknown Thiamine HCl [Vitamin B-1] 100 mg PO DAILY 03/19/21 03/19/21 Unknown Topiramate [Topamax] 50 mg PO BID 03/19/21 03/19/21 Unknown Venlafaxine HCl [Effexor Xr] 75 mg PO DAILY 03/19/21 03/19/21 Unknown Previous Rx's Medication Instructions Recorded Last Taken Type Benztropine [Cogentin] 1 mg PO BID 30 Days #60 tab 06/19/21 Unknown Rx Divalproex [Simeon GAITAN] 500 mg PO BID 30 Days #60 tablet 06/19/21 Unknown Rx chlorproMAZINE [Thorazine] 25 mg PO BID 30 Days #60 tablet 06/19/21 Unknown Rx Baclofen 20 mg PO Q12H PRN #20 tablet 06/24/21 Unknown Rx Gabapentin 300 mg PO Q12H #30 cap 06/24/21 Unknown Rx Naproxen 500 mg PO Q12H PRN #30 tablet 06/24/21 Unknown Rx predniSONE [Deltasone] 40 mg PO QDAY #10 tab 06/24/21 Unknown Rx Allergies Allergy/AdvReac Type Severity Reaction Status Date / Time Fish Containing Products Allergy Rash Verified 02/22/22 17:36 haloperidol [From Haldol] Allergy Angioedema Verified 02/22/22 17:36 turkey Allergy Rash Verified 02/22/22 17:36 beans Allergy Rash Uncoded 02/22/22 17:36 ED Review of Systems ROS: Stated complaint: MH EVALUATION Other details as noted in HPI Constitutional: denies: fever Eyes: denies: eye discharge ENT: denies: epistaxis Respiratory: denies: cough Cardiovascular: denies: chest pain Gastrointestinal: denies: abdominal pain Genitourinary: denies: urgency Musculoskeletal: arthralgia, myalgia Neurological: headache Psychiatric: anxiety, suicidal thoughts ED Past Medical Hx - Past Medical History Hx Hypertension: No Hx CVA: No Hx Heart Attack/AMI: No Hx Congestive Heart Failure: No Hx Diabetes: No Hx Deep Vein Thrombosis: No Hx Pulmonary Embolism: No Hx GERD: No Hx Liver Disease: No Hx Renal Disease: No Hx Sickle Cell Disease: No Hx Arthritis: No Hx Headaches / Migraines: No Hx Seizures: No Hx Kidney Stones: No Hx Psychiatric Treatment: Yes (multiple IP stays, ANXIETY; schizophrenia; bip olar; PTSD; depression) Hx Asthma: Yes Hx COPD: No Hx Tuberculosis: No Hx Dementia: No Hx HIV: Yes (last CD4 count unknown) Additional medical history: Tetanus up to date per patient - Surgical History Hx Coronary Stent: No Hx Open Heart Surgery: No Hx Pacemaker: No Hx Internal Defibrillator: No Hx Cholecystectomy: No Hx Appendectomy: No Hx Breast Surgery: No Additional Surgical History: nexplanon at 18 years old ( control). kidney stone removal - Social History Smoking Status: Former Smoker Substance Use Type: Alcohol, Marijuana - Medications Home Medications: Home Medications Medication Instructions Recorded Confirmed Last Taken Type AtorvaSTATin [Lipitor] 10 mg PO QHS 03/19/21 03/19/21 Unknown History Benztropine Mesylate 1 mg PO BID 03/19/21 03/19/21 Unknown History Bictegrav/Emtricit/Tenofov Ala 1 each PO DAILY 03/19/21 03/19/21 Unknown History [Biktarvy 50-200-25 mg (Nf)] Bisacodyl [Women's Gentle Laxative] 5 mg PO HS 03/19/21 03/19/21 Unknown History Buprenorphine/Naloxone [Suboxone 2 1 film SL QDAY 03/19/21 03/19/21 Unknown History mg-0.5 mg] Chlorpromazine HCl 25 mg PO BID 03/19/21 03/19/21 Unknown History Cholecalciferol Vit D3 [Vitamin D3 1,000 unit PO QDAY 03/19/21 03/19/21 Unknown History 1,000 UNIT TAB] Anthonyalproarron Gaitan [Simeon GAITAN] 500 mg PO BID 03/19/21 03/19/21 Unknown History Docusate Sodium [Colace] 300 mg PO DAILY PRN 03/19/21 03/19/21 Unknown History Famotidine [Acid Controller] 20 mg PO BID 03/19/21 03/19/21 Unknown History Folic Acid 1 mg PO DAILY 03/19/21 03/19/21 Unknown History Menth/Me-Salicylate/[place] Oil 113 gm TP TID 03/19/21 03/19/21 Unknown History [Castiva Cooling Lotion] Mirtazapine 7.5 mg PO HS 03/19/21 03/19/21 Unknown History Thiamine HCl [Vitamin B-1] 100 mg PO DAILY 03/19/21 03/19/21 Unknown History Topiramate [Topamax] 50 mg PO BID 03/19/21 03/19/21 Unknown History Venlafaxine HCl [Effexor Xr] 75 mg PO DAILY 03/19/21 03/19/21 Unknown History Benztropine [Cogentin] 1 mg PO BID 30 Days #60 tab 06/19/21 Unknown Rx Divalproex [Simeon GAITAN] 500 mg PO BID 30 Days #60 tablet 06/19/21 Unknown Rx chlorproMAZINE [Thorazine] 25 mg PO BID 30 Days #60 tablet 06/19/21 Unknown Rx Baclofen 20 mg PO Q12H PRN #20 tablet 06/24/21 Unknown Rx Gabapentin 300 mg PO Q12H #30 cap 06/24/21 Unknown Rx Naproxen 500 mg PO Q12H PRN #30 tablet 06/24/21 Unknown Rx predniSONE [Deltasone] 40 mg PO QDAY #10 tab 06/24/21 Unknown Rx ED Physical Exam - General Limitations: Other (The patient is psychotic and disorganized) General appearance: anxious, in distress, obese - Head Head exam: Present: normocephalic, other (There is a superficial scalp abrasion) - Eye Eye exam: Present: normal appearance, EOMI. Absent: nystagmus - ENT ENT exam: Present: normal exam, normal orophraynx, mucous membranes moist, normal external ear exam - Neck Neck exam: Present: normal inspection, full ROM. Absent: tenderness, meningismus - Respiratory Respiratory exam: Present: normal lung sounds bilaterally. Absent: respiratory distress, wheezes, rales, rhonchi, stridor, decreased breath sounds - Cardiovascular Cardiovascular Exam: Present: regular rate, normal rhythm, normal heart sounds. Absent: bradycardia, tachycardia, irregular rhythm, systolic murmur, diastolic murmur, rubs, gallop - GI/Abdominal GI/Abdominal exam: Present: soft. Absent: distended, tenderness, guarding, rebound, rigid, pulsatile mass - Extremities Exam Extremities exam: Present: full ROM, other (2+ pulses noted in the bilateral upper and lower extremities. There is no palpable cord. negative Homans sign. Muscular compartments are soft. The pelvis is stable.). Absent: normal inspection (There is a superficial linear series of abrasions noted volar aspect of the left distal wrist), calf tenderness - Back Exam Back exam: Present: normal inspection. Absent: tenderness, CVA tenderness (R), CVA tenderness (L), paraspinal tenderness, vertebral tenderness - Neurological Exam Neurological exam: Present: alert, normal gait, other (There is no facial droop. The tongue is midline. EOMI. 5/5 strength in 4 extremities. Ambulatory with a steady gait) - Psychiatric Psychiatric exam: Present: agitated, anxious, suicidal ideation - Skin Skin exam: Present: warm, dry, abrasion, ecchymosis. Absent: rash ED Course Vital Signs 02/22/22 02/22/22 17:33 18:09 Temperature 98.4 F Pulse Rate 80 Respiratory 20 Rate Blood Pressure 140/80 [Left] O2 Sat by Pulse 97 97 Oximetry - Reevaluation(s) Reevaluation #1: 02/22/22 19:07 Differential diagnosis, including but not limited to: Psychosis, self-inflicted injuries, medical clearance for psychiatric placement, closed head injury Assessment and plan: 26-year-old female, who is afebrile, with reassuring vital signs with acute psychosis and self-inflicted injuries. Given psychosis, obtain CT scan of the brain. It is negative for acute findings. Administer tetanus vaccination. Left upper extremity superficial wounds do not require laceration repair at this time. Psychiatric consultation is pending. Appropriate laboratory studies have been requested. Currently awaiting laboratory testing at this time. We will also treat the patient's symptoms 02/22/22 20:09 Laboratory studies are unremarkable. COVID swab is pending. At this point in time, this patient does not appear to have an immediate medical contraindication to psychiatric admission, evaluation, consultation and placement. Psychiatric disposition as per psych team. ER will follow along for COVID swab. Patient is not hypoxic. Do not clinically suspect acute COVID. ED Medical Decision Making - Lab Data Result diagrams: 02/22/22 18:31 02/22/22 18:31 Vital Signs 02/22/22 02/22/22 17:33 18:09 Temperature 98.4 F Pulse Rate 80 Respiratory 20 Rate Blood Pressure 140/80 [Left] O2 Sat by Pulse 97 97 Oximetry Lab Results 02/22/22 02/22/22 02/22/22 Range/Units 17:56 17:56 18:31 WBC 5.6 (4.5-11.0) K/mm3 RBC 3.83 (3.65-5.03) M/mm3 Hgb 12.4 (10.1-14.3) gm/dl Hct 36.4 (30.3-42.9) % MCV 95 (79-97) fl MCH 32 (28-32) pg MCHC 34 (30-34) % RDW 12.9 L (13.2-15.2) % Plt Count 192 (140-440) K/mm3 Lymph % (Auto) 46.8 H (13.4-35.0) % [place] % (Auto) 11.0 H (0.0-7.3) % Eos % (Auto) 0.4 (0.0-4.3) % Baso % (Auto) 0.2 (0.0-1.8) % Lymph # (Auto) 2.6 (1.2-5.4) K/mm3 [place] # (Auto) 0.6 (0.0-0.8) K/mm3 Eos # (Auto) 0.0 (0.0-0.4) K/mm3 Baso # (Auto) 0.0 (0.0-0.1) K/mm3 Seg Neutrophils % 41.6 (40.0-70.0) % Seg Neutrophils # 2.3 (1.8-7.7) K/mm3 Urine Color Straw (Yellow) Urine Turbidity Clear (Clear) Urine pH 6.5 (5.0-7.0) Ur Specific [place] 1.010 (1.003-1.030) Urine Protein <15 mg/dl (Negative) mg/dL Urine Glucose (UA) Negative (Negative) mg/dL Urine Ketones Negative (Negative) mg/dL Urine Blood Negative (Negative) Urine Nitrite Negative (Negative) Ur Reducing Substances Not Reportable Urine Bilirubin Negative (Negative) Urine Ictotest Not Reportable Urine Urobilinogen 2.0 (<2.0) mg/dL Ur Leukocyte Esterase Negative (Negative) Urine WBC (Auto) 3.0 (0.0-6.0) /HPF Urine RBC (Auto) 2.0 (0.0-6.0) /HPF U Epithel Cells (Auto) 3.0 (0-13.0) /HPF Urine Bacteria (Auto) 1+ (Negative) /HPF Urine Opiates Screen Negative Urine Methadone Screen Negative Ur Barbiturates Screen Negative Ur Phencyclidine Scrn Negative Ur Amphetamines Screen Negative U Benzodiazepines Scrn Negative Urine Cocaine Screen Negative U Marijuana (THC) Screen Negative Drugs of Abuse Note Disclamer - Radiology Data Radiology results: pending, report reviewed, image reviewed CT head/brain wo con INDICATION / CLINICAL INFORMATION: 26 years Female; Closed head injury. TECHNIQUE: Routine CT head without contrast. All CT scans at this location are performed using CT dose reduction for ALARA by means of automated exposure control. COMPARISON: The study is compared to previous CT of 03/18/2021. FINDINGS: BRAIN / INTRACRANIAL CONTENTS: The motion and positioning degrade the image quality. However, the brain parenchyma appears to demonstrate appropriate attenuation. The ventricular system is within normal limits in size and configuration. There is no clear CT evidence of acute intracranial hemorrhage or significant mass effect. ORBITS: No significant abnormality of visualized orbits. SINUSES / MASTOIDS: This mild edema involving posterior scalp. The calvarium appears intact. The visualized nasal sinuses are pneumatized. CRANIOCERVICAL JUNCTION: No significant abnormality. ADDITIONAL FINDINGS: None. IMPRESSION: 1. There is no clear CT evidence of acute intracranial process. Signer Name: Hiram Muñoz MD Signed: 02/22/2022 5:44 PM Workstation Name: [id number] Critical care attestation.: If time is entered above; I have spent that time in minutes in the direct care of this critically ill patient, excluding procedure time. ED Disposition Clinical Impression: Closed head injury, Self-injurious behavior, Suicidal ideations, Abrasion of left arm, Medical clearance for psychiatric admission Disposition: [address] [place] [address] Is pt being admited?: No Does the pt Need Aspirin: No Condition: Good Referrals: PRIMARY CARE, [Primary Care Provider] - 3-5 Days
[2022-02-22 18:22] LABS: Bacteria,Urine 1+ /HPF (Negative)
[2022-02-22 18:24] LABS: Amphetamine Screen,Urine Negative; Benzodiazepines Screen,Urine Negative; Cannabinoid Screen,Urine Negative; Cocaine Screen,Urine Negative; Methadone Screen,Urine Negative; Opiate Screen,Urine Negative
[2022-02-22 18:26] LABS: Bilirubin,Urine Negative (Negative); Color,Urine Straw (Yellow)
[2022-02-22 18:27] LABS: Blood,Urine Negative (Negative); PH,Urine 6.5 (5.0-7.0); Protein,Urine <15 mg/dL mg/dL (Negative)
--- NOTE | 2022-02-22 18:49 | Cat Scan Report ---
CT head/brain wo con INDICATION / CLINICAL INFORMATION: 26 years Female; Closed head injury. TECHNIQUE: Routine CT head without contrast. All CT scans at this location are performed using CT dos e reduction for ALARA by means of automated exposure control. COMPARISON: The study is compared to previous CT of 03/18/2021. FINDINGS: BRAIN / INTRACRANIAL CONTENTS: The motion and positioning degrade the image quality. However, the bra in parenchyma appears to demonstrate appropriate attenuation. The ventricular system is within normal limits in size and configuration. There is no clear CT evidence of acute intracranial hemorrhage or significant mass effect. ORBITS: No significant abnormality of visualized orbits. SINUSES / MASTOIDS: This mild edema involving posterior scalp. The calvarium appears intact. The visu alized nasal sinuses are pneumatized. CRANIOCERVICAL JUNCTION: No significant abnormality. ADDITIONAL FINDINGS: None. IMPRESSION: 1. There is no clear CT evidence of acute intracranial process. Signer Name: Hiram Muñoz MD Signed: 02/22/2022 6:44 PM Workstation Name: [id number]
[2022-02-22 19:00] LABS: Basophils % (Auto) 0.2 % (0.0-1.8); Eosinophils % (Auto) 0.4 % (0.0-4.3); Hematocrit 36.4 % (30.3-42.9); Hemoglobin 12.4 gm/dl (10.1-14.3); Lymphocytes # (Auto) 2.6 K/mm3 (1.2-5.4); Lymphocytes % (Auto) 46.8 % (13.4-35.0); Mean Corpuscular HGB Conc 34 % (30-34); Mean Corpuscular Volume 95 fl (79-97); Monocytes # (Auto) 0.6 K/mm3 (0.0-0.8); Platelet Count 192 K/mm3 (140-440); Red Blood Count 3.83 M/mm3 (3.65-5.03); Red Cell Distribution Width 12.9 % (13.2-15.2)
[2022-02-22] MEDS ORDERED: METOCLOPRAMIDE 10 MG TAB PO PRN (19:03)
[2022-02-22] MEDS ORDERED: IBUPROFEN 400 MG TAB PO PRN (19:03)
[2022-02-22 19:30] LABS: Blood Urea Nitrogen 9 mg/dL (7-17); Calcium 8.9 mg/dL (8.4-10.2); Hemolysis Index 6
[2022-02-22 19:31] LABS: BUN/Creatinine Ratio 18
--- NOTE | 2022-02-23 10:09 | Consultation ---
History of Present Illness - Reason for Consult Consult date: 02/23/22 Reason for consult: psychosis - History of Present Psychiatric Illness The patient was seen today. Her affect is flat. She has a history of Bipolar, PTSD and schizoaffective disorder. She says she hit herself over the head with a huge piece of concrete to get the voices to stop. She has red spot in the center of her forehead. The patient says "that's how I get the voices to stop." She then says "but I really don't want to stay here. Please let me go." The patient says she did meth about a month ago. 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 She says she takes effexor, abilify and effexor. She denies SI/HI. The patient says "no, I was only trying to get the voices out of my head. That's why I hit myself with the concrete." PAST PSYCHIATRIC HISTORY: Diagnoses: Bipolar Disorder, schizoaffective disorder, PTSD Suicide attempts or Self-harm behavior: Yes Prior psychiatric hospitalizations: Yes Substance Abuse history: Denies Previous psychiatric medications tried: vero Vargas Outpatient treatment: Yes PAST MEDICAL HISTORY: None reported Family Psychiatric History: None reported or documented SOCIAL HISTORY Marital Status: Living Arrangements: penitentiary Employment Status: Disabled Access to guns/weapons: Denies Education: History of Abuse:Denies Legal History: Denies REVIEW OF SYSTEMS Constitutional: Negative for weight loss ENT: Negative for stridor Respiratory: Negative for cough or hemoptysis All other systems reviewed and are negative MENTAL STATUS EXAMINATION General Appearance and Behavior: Age appropriate, wearing appropriate clothes, cooperative, polite with questioning, poor eye contact Cooperation: cooperative Psychomotor Behavior: Psychomotor normal Mood: Depressed Affect and affective range: congruent with stated affect, flat Thought Process: Goal directed Thought Content: depression Speech: Normal volume, Regular rate and rhythm Suicidal Ideation: passive Homicidal Ideation: Denies Hallucination: Auditory Delusions: Denies Impulse Control: poor Insight and Judgment: Limited Memory: Intact Attention:attentive Orientation: Alert and oriented Diagnoses: Schizoaffective Disorder Treatment Plan 1013 Abilify 10mg po daily Puja MONTES 250mg po BID Doxepin 10mg po qhs Sitter: per primary Medical: Per primary Disposition: Recommend acute psychiatric inpatient treatment Will follow. Thanks Case staffed by Dr. Richardson Medications and Allergies Allergies Allergy/AdvReac Type Severity Reaction Status Date / Time Fish Containing Products Allergy Rash Verified 02/22/22 17:36 haloperidol [From Haldol] Allergy Angioedema Verified 02/22/22 17:36 turkey Allergy Rash Verified 02/22/22 17:36 beans Allergy Rash Uncoded 02/22/22 17:36 Home Medications Medication Instructions Recorded Confirmed Last Taken Type AtorvaSTATin [Lipitor] 10 mg PO QHS 03/19/21 03/19/21 Unknown History Benztropine Mesylate 1 mg PO BID 03/19/21 03/19/21 Unknown History Bictegrav/Emtricit/Tenofov Ala 1 each PO DAILY 03/19/21 03/19/21 Unknown History [Biktarvy 50-200-25 mg (Nf)] Bisacodyl [Women's Gentle Laxative] 5 mg PO HS 03/19/21 03/19/21 Unknown History Buprenorphine/Naloxone [Suboxone 2 1 film SL QDAY 03/19/21 03/19/21 Unknown History mg-0.5 mg] Chlorpromazine HCl 25 mg PO BID 03/19/21 03/19/21 Unknown History Cholecalciferol Vit D3 [Vitamin D3 1,000 unit PO QDAY 03/19/21 03/19/21 Unknown History 1,000 UNIT TAB] Divalproex [Puja MONTES] 500 mg PO BID 03/19/21 03/19/21 Unknown History Docusate Sodium [Colace] 300 mg PO DAILY PRN 03/19/21 03/19/21 Unknown History Famotidine [Acid Controller] 20 mg PO BID 03/19/21 03/19/21 Unknown History Folic Acid 1 mg PO DAILY 03/19/21 03/19/21 Unknown History Menth/Me-Salicylate/[place] Oil 113 gm TP TID 03/19/21 03/19/21 Unknown History [Castiva Cooling Lotion] Mirtazapine 7.5 mg PO HS 03/19/21 03/19/21 Unknown History Thiamine HCl [Vitamin B-1] 100 mg PO DAILY 03/19/21 03/19/21 Unknown History Topiramate [Topamax] 50 mg PO BID 03/19/21 03/19/21 Unknown History Venlafaxine HCl [Effexor Xr] 75 mg PO DAILY 03/19/21 03/19/21 Unknown History Benztropine [Cogentin] 1 mg PO BID 30 Days #60 tab 06/19/[address] [DepaKOTE DR] 500 mg PO BID 30 Days #60 tablet 06/19/21 Unknown Rx chlorproMAZINE [Thorazine] 25 mg PO BID 30 Days #60 tablet 06/19/21 Unknown Rx Baclofen 20 mg PO Q12H PRN #20 tablet 06/24/21 Unknown Rx Gabapentin 300 mg PO Q12H #30 cap 06/24/21 Unknown Rx Naproxen 500 mg PO Q12H PRN #30 tablet 06/24/21 Unknown Rx predniSONE [Deltasone] 40 mg PO QDAY #10 tab 06/24/21 Unknown Rx Active Meds: Active Medications Ibuprofen (Ibuprofen 400 Mg Tab) 400 mg PO Q6HR PRN PRN Reason: Pain , Severe (7-10) Lorazepam (Lorazepam 2 Mg/Ml Vial) 2 mg IM Q4HR PRN PRN Reason: Agitation Metoclopramide HCl (Metoclopramide 10 Mg Tab) 10 mg PO Q6HR PRN PRN Reason: Nausea Ziprasidone (Ziprasidone Mesylate 20 Mg Vial) 10 mg IM Q2H PRN PRN Reason: Agitation Mental Status Exam - Vital signs Last Vital Signs Temp 98.6 F 02/23/22 08:38 Pulse 78 02/23/22 08:38 Resp 16 02/23/22 08:38 BP 128/63 02/23/22 08:38 Pulse Ox 100 02/23/22 08:38 Results Result Diagrams: 02/22/22 18:31 02/22/22 18:31 Abnormal lab results 02/22/22 02/22/22 02/22/22 Range/Units 18:31 18:31 18:31 RDW (13.2-15.2) % Lymph % (Auto) (13.4-35.0) % [place] % (Auto) (0.0-7.3) % Carbon Dioxide 21 L (22-30) mmol/L Creatinine 0.5 L (0.6-1.2) mg/dL Glucose 109 H (65-100) mg/dL Salicylates < 0.3 L (2.8-20.0) mg/dL Acetaminophen 5.0 L (10.0-30.0) ug/mL Valproic Acid 4.8 L (50-100) ug/mL 02/22/22 Range/Units 18:31 RDW 12.9 L (13.2-15.2) % Lymph % (Auto) 46.8 H (13.4-35.0) % [place] % (Auto) 11.0 H (0.0-7.3) % Carbon Dioxide (22-30) mmol/L Creatinine (0.6-1.2) mg/dL Glucose (65-100) mg/dL Salicylates (2.8-20.0) mg/dL Acetaminophen (10.0-30.0) ug/mL Valproic Acid (50-100) ug/mL All other labs normal.
[2022-02-23] MEDS ORDERED: DIVALPROEX DR 250 MG TAB PO SCH (11:00)
[2022-02-23] MEDS ORDERED: ARIPiprazole 10 MG TAB PO SCH (11:00)
[2022-02-23] MEDS ORDERED: ACETAMINOPHEN 325 MG TAB PO PRN (14:09)
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
[2022-02-23] MEDS ORDERED: NON-FORMULARY EACH (Bictegrav/Emtricit/Tenofov Ala 1 EACH Tablet) PO SCH (14:15)
[2022-02-23] MEDS ORDERED: DOLUTEGRAVIR 50 MG TAB PO SCH (20:00)
[2022-02-23] MEDS ORDERED: GABAPENTIN 300 MG CAP PO SCH (20:00)
[2022-02-23] MEDS ORDERED: EMTRICITABINE 200 MG CAP PO SCH (20:00)
[2022-02-23] MEDS ORDERED: TENOFOVIR 300 MG TAB PO SCH (20:00)
[2022-02-23 21:31] VITALS: BP 113/68
[2022-02-23] MEDS ORDERED: DOXEPIN 10 MG CAP PO SCH (22:00)
[2022-02-24] MEDS ORDERED: PANTOPRAZOLE 40 MG TAB PO SCH (10:00)
[2022-02-24] MEDS ORDERED: NON-FORMULARY EACH (Protonix 40 MG) PO SCH (10:00)
[2022-02-24] MEDS ORDERED: FUROSEMIDE 20 MG TAB PO SCH (10:00)
[2022-02-24] MEDS ORDERED: CHOLECALCIFEROL (VIT D3) 1000 UNIT (25 mcg) TAB PO SCH (10:00)
[2022-02-24] MEDS ORDERED: METOPROLOL TARTRATE 50 MG TAB PO SCH (10:00)
[2022-02-24] MEDS ORDERED: BUPRENORPHINE 2 MG/NALOXONE 0.5 MG FILM SL SCH ×2 (10:00)
== END 2022-02-23 22:24 ==
LOC: ED 17:26
DX: S60.512A Abrasion of left hand, initial encounter (principal); S09.90XA Unspecified injury of head, initial encounter; R45.851 Suicidal ideations; Z13.30 Encounter for screening examination for mental health and behavioral disorders, unspecified; Z20.822 Contact with and (suspected) exposure to COVID-19; F41.9 Anxiety disorder, unspecified; F20.9 Schizophrenia, unspecified; F31.9 Bipolar disorder, unspecified; F12.90 Cannabis use, unspecified, uncomplicated; Z87.891 Personal history of nicotine dependence; Z72.89 Other problems related to lifestyle; Z88.8 Allergy status to other drugs, medicaments and biological substances; Z91.018 Allergy to other foods; Z79.899 Other long term (current) drug therapy; X83.8XXA Intentional self-harm by other specified means, initial encounter; Y93.89 Activity, other specified; Y92.89 Other specified places as the place of occurrence of the external cause; Y99.8 Other external cause status
CPT/HCPCS: 36415; 70450; 80048; 80164; 80307; 81001; 84702; 85025; 90471; 90715; 96372; 99285; J2060; U0003; 80320; G0480

== ENCOUNTER 2022-03-25 20:45 | Emergency (ER) | payer MEDICAID ==
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
[2022-03-25 23:51] VITALS: BP 111/56
== END 2022-03-25 23:50 | disposition home or self-care (01) ==
LOC: ED 20:45
DX: T76.21XA Adult sexual abuse, suspected, initial encounter (principal); F20.9 Schizophrenia, unspecified; Z91.013 Allergy to seafood; Z88.8 Allergy status to other drugs, medicaments and biological substances; Z91.018 Allergy to other foods
CPT/HCPCS: 99283

== ENCOUNTER 2022-05-17 19:07 | Emergency (ER) | payer MEDICAID ==
--- NOTE | 2022-05-17 20:40 | XRay Report ---
CHEST 1 VIEW 05/17/2022 7:33 PM INDICATION / CLINICAL INFORMATION: Dyspnea. COMPARISON: 07/27/2017 FINDINGS: SUPPORT DEVICES: None. HEART / MEDIASTINUM: No significant abnormality. LUNGS / PLEURA: Mild increased pulmonary vascularity No pneumothorax. ADDITIONAL FINDINGS: No significant additional findings. IMPRESSION: 1. No acute findings. Signer Name: Marvin Huffman MD Signed: 05/17/2022 8:36 PM Workstation Name: [id number]
[2022-05-17 21:31] LABS: Bilirubin,Urine Negative (Negative); Blood,Urine Negative (Negative); Color,Urine Yellow (Yellow); Protein,Urine <15 mg/dL mg/dL (Negative); Urobilinogen,Urine < 2.0 mg/dL (<2.0)
[2022-05-17 21:34] LABS: Bacteria,Urine 1+ /HPF (Negative); Mucus,Urine FEW /HPF
[2022-05-17 21:47] LABS: Amphetamine Screen,Urine Negative; Benzodiazepines Screen,Urine Negative; Cannabinoid Screen,Urine Negative; Cocaine Screen,Urine Negative; Methadone Screen,Urine Negative; Opiate Screen,Urine Negative
[2022-05-17 22:23] LABS: Basophils % (Auto) 0.1 % (0.0-1.8); Eosinophils % (Auto) 0.7 % (0.0-4.3); Hematocrit 31.6 % (30.3-42.9); Hemoglobin 10.5 gm/dl (10.1-14.3); Lymphocytes # (Auto) 2.7 K/mm3 (1.2-5.4); Lymphocytes % (Auto) 46.3 % (13.4-35.0); Mean Corpuscular HGB Conc 33 % (30-34); Mean Corpuscular Volume 95 fl (79-97); Monocytes # (Auto) 0.5 K/mm3 (0.0-0.8); Monocytes % (Auto) 8.9 % (0.0-7.3); Platelet Count 204 K/mm3 (140-440); Red Blood Count 3.32 M/mm3 (3.65-5.03); Red Cell Distribution Width 13.5 % (13.2-15.2)
[2022-05-17 22:32] LABS: INR 0.87 (0.87-1.13)
[2022-05-17 22:44] LABS: Alanine Aminotransferase 11 units/L (7-56); Albumin 3.7 g/dL (3.9-5); Blood Urea Nitrogen 8 mg/dL (7-17); Calcium 8.7 mg/dL (8.4-10.2); Hemolysis Index 23
[2022-05-17 22:49] LABS: BUN/Creatinine Ratio 16; Creatine Kinase MB < 1.0 ng/mL (0.0-4.0)
[2022-05-17] MEDS ORDERED: FUROSEMIDE 20 MG/2 ML INJ IV ONE (23:30)
[2022-05-17] MEDS ORDERED: NALOXONE 2 MG/2 ML INJ IV ONE (23:30)
--- NOTE | 2022-05-17 23:34 | Emergency Department Report ---
ED Chest Pain HPI - General Chief Complaint: Chest Pain Stated Complaint: CHEST PAIN PUI?: No Time Seen by Provider: 05/17/22 19:45 Source: EMS Mode of arrival: Stretcher Limitations: No Limitations - History of Present Illness Initial Comments: chest pain and ankle swelling pt is 26 years old HIV , mental disorders , chornic pain here for chest pain and sob and LE swelling for few days pt admitted to take whole bottle of benadryl last night to sleep because she didn;t sleep since apr 23 no SI -: Gradual, days(s) Onset: during rest Pain Radiation: none Severity scale (0 -10): 5 Consistency: intermittent Improves With: nothing Treatments Prior to Arrival: none - Related Data Home Medications Medication Instructions Recorded Confirmed Last Taken AtorvaSTATin [Lipitor] 10 mg PO QHS 03/19/21 02/23/22 Unknown Bictegrav/Emtricit/Tenofov Ala 1 each PO DAILY 03/19/21 02/23/22 Unknown [Biktarvy 50-200-25 mg (Nf)] Buprenorphine/Naloxone [Suboxone 2 1 film SL QDAY 03/19/21 02/23/22 Unknown mg-0.5 mg] Cholecalciferol Vit D3 [Vitamin D3 1,000 unit PO QDAY 03/19/21 02/23/22 Unknown 1,000 UNIT TAB] Amalia Gaitan [Simeon GAITAN] 500 mg PO BID 03/19/21 02/23/22 Unknown Venlafaxine HCl [Effexor Xr] 75 mg PO DAILY 03/19/21 02/23/22 Unknown Furosemide [Lasix] 20 mg PO QDAY 02/23/22 02/23/22 Unknown Gabapentin 800 mg PO TID 02/23/22 02/23/22 Unknown Metoprolol [Lopressor TAB] 50 mg PO QAM 02/23/22 02/23/22 Unknown Protonix 40 mg PO QAM 02/23/22 02/23/22 Unknown diphenhydrAMINE [Benadryl CAP] 50 mg PO TID 02/23/22 02/23/22 Unknown methOCARBAMOL [Robaxin TAB] 750 mg PO Q6H 02/23/22 02/23/22 Unknown Previous Rx's Medication Instructions Recorded Last Taken Type Amalia Smith DR] 500 mg PO BID 30 Days #60 tablet 06/19/21 Unknown Rx Allergies Allergy/AdvReac Type Severity Reaction Status Date / Time Fish Containing Products Allergy Rash Verified 02/22/22 17:36 haloperidol [From Haldol] Allergy Angioedema Verified 02/22/22 17:36 turkey Allergy Rash Verified 02/22/22 17:36 beans Allergy Rash Uncoded 02/22/22 17:36 Heart Score - HEART Score History: Slightly suspicious EKG: Normal Age: < 45 Risk factors: 1-2 risk factors Troponin: < normal limit HEART Score: 1 - EKG Read Time Time EKG Completed: 19:36 EKG Read Time: 19:36 - Critical Actions Critical Actions: 0-3 pts:0.9-1.7%risk of adverse cardiac event.Candidate for discharge ED Review of Systems ROS: Stated complaint: CHEST PAIN Other details as noted in HPI Constitutional: denies: chills, fever Eyes: denies: eye pain, eye discharge, vision change ENT: denies: ear pain, throat pain Respiratory: denies: cough, shortness of breath, wheezing Cardiovascular: denies: chest pain, palpitations Endocrine: no symptoms reported Gastrointestinal: denies: abdominal pain, nausea, diarrhea Genitourinary: denies: urgency, dysuria, discharge Musculoskeletal: denies: back pain, joint swelling, arthralgia Skin: denies: rash, lesions Neurological: denies: headache, weakness, paresthesias Psychiatric: denies: anxiety, depression Hematological/Lymphatic: denies: easy bleeding, easy bruising ED Past Medical Hx - Past Medical History Hx Hypertension: No Hx CVA: No Hx Heart Attack/AMI: No Hx Congestive Heart Failure: No Hx Diabetes: No Hx Deep Vein Thrombosis: No Hx Pulmonary Embolism: No Hx GERD: No Hx Liver Disease: No Hx Renal Disease: No Hx Sickle Cell Disease: No Hx Arthritis: No Hx Headaches / Migraines: No Hx Seizures: No Hx Kidney Stones: No Hx Psychiatric Treatment: Yes (multiple IP stays, ANXIETY; schizophrenia; bipolar; PTSD; depression) Hx Asthma: Yes Hx COPD: No Hx Tuberculosis: No Hx Dementia: No Hx HIV: Yes (last CD4 count unknown) Additional medical history: Tetanus up to date per patient - Surgical History Hx Coronary Stent: No Hx Open Heart Surgery: No Hx Pacemaker: No Hx Internal Defibrillator: No Hx Cholecystectomy: No Hx Appendectomy: No Hx Breast Surgery: No Additional Surgical History: nexplanon at 18 years old ( control). kidney stone removal - Social History Smoking Status: Unknown if ever smoked - Medications Home Medications: Home Medications Medication Instructions Recorded Confirmed Last Taken Type AtorvaSTATin [Lipitor] 10 mg PO QHS 03/19/21 02/23/22 Unknown History Bictegrav/Emtricit/Tenofov Ala 1 each PO DAILY 03/19/21 02/23/22 Unknown History [Biktarvy 50-200-25 mg (Nf)] Buprenorphine/Naloxone [Suboxone 2 1 film SL QDAY 03/19/21 02/23/22 Unknown History mg-0.5 mg] Cholecalciferol Vit D3 [Vitamin D3 1,000 unit PO QDAY 03/19/21 02/23/22 Unknown History 1,000 UNIT TAB] Divalproex [Simeon GAITAN] 500 mg PO BID 03/19/21 02/23/22 Unknown History Venlafaxine HCl [Effexor Xr] 75 mg PO DAILY 03/19/21 02/23/22 Unknown History Divalproex [Simeon GAITAN] 500 mg PO BID 30 Days #60 tablet 06/19/21 02/23/22 Unknown Rx Furosemide [Lasix] 20 mg PO QDAY 02/23/22 02/23/22 Unknown History Gabapentin 800 mg PO TID 02/23/22 02/23/22 Unknown History Metoprolol [Lopressor TAB] 50 mg PO QAM 02/23/22 02/23/22 Unknown History Protonix 40 mg PO QAM 02/23/22 02/23/22 Unknown History diphenhydrAMINE [Benadryl CAP] 50 mg PO TID 02/23/22 02/23/22 Unknown History methOCARBAMOL [Robaxin TAB] 750 mg PO Q6H 02/23/22 02/23/22 Unknown History ED Physical Exam - General Limitations: No Limitations General appearance: alert, other (drwosy [place] ,) - Head Head exam: Present: atraumatic, normocephalic - Eye Eye exam: Present: normal appearance - ENT ENT exam: Present: mucous membranes moist - Neck Neck exam: Present: normal inspection - Respiratory Respiratory exam: Present: normal lung sounds bilaterally. Absent: respiratory distress - Cardiovascular Cardiovascular Exam: Present: regular rate, normal rhythm. Absent: systolic murmur, diastolic murmur, rubs, gallop - GI/Abdominal GI/Abdominal exam: Present: soft, normal bowel sounds - Extremities Exam Extremities exam: Present: normal inspection - Back Exam Back exam: Present: normal inspection - Neurological Exam Neurological exam: Present: alert, oriented X3 - Psychiatric Psychiatric exam: Present: normal affect, normal mood - Skin Skin exam: Present: warm, dry, intact, normal color. Absent: rash ED Course Vital Signs 05/17/22 20:42 Temperature 98.0 F Pulse Rate 73 Respiratory 18 Rate Blood Pressure 138/76 [Right] O2 Sat by Pulse 100 Oximetry MIRTA score - Mirta Score Age > 65: (0) No Aspirin use within the Past 7 Days: (0) No 3 or more CAD Risk Factors: (0) No 2 or more Angina events in past 24 hrs: (0) No Known CAD with more than 50% Stenosis: (0) No Elevated Cardiac Markers: (0) No ST Deviation Greater than 0.5mm: (0) No MIRTA Score: 0 ED Medical Decision Making - Lab Data Result diagrams: 05/17/22 20:24 05/17/22 20:24 - EKG Data -: EKG Interpreted by Ny EKG shows normal: sinus rhythm Rate: normal - EKG Data Interpretation: no acute changes - Radiology Data Radiology results: report reviewed, image reviewed - Medical Decision Making work up negatve for trop and bnp, x ray clear vss , ekg doesn;t show stemi , vss , no distress, pt was sleepy but arousble it sems like polypharmacu drug screen negative Critical care attestation.: If time is entered above; I have spent that time in minutes in the direct care of this critically ill patient, excluding procedure time. ED Disposition Clinical Impression: Chest wall pain, Accidental ingestion of substance Disposition: 30 STILL A PATIENT Is pt being admited?: No Does the pt Need Aspirin: No Condition: Stable Instructions: Nonspecific Chest Pain, Adult Referrals: PRIMARY CARE, [Primary Care Provider] - 3-5 Days
[2022-05-18] MEDS ORDERED: LORazepam 2 MG/ML VIAL ONE (11:34)
--- NOTE | 2022-05-18 11:36 | Consultation ---
History of Present Illness - Reason for Consult Consult date: 05/18/22 Reason for consult: depression, OD - History of Present Psychiatric Illness The patient was seen today. She has a history of bipolar, schizophrenia, PTSD, and stress related seizures. She also endorses a history of methamphetamines, benzos, ths, opioids and alcohol. The patient says she drinks two six packs and 3 big botles of smirnoff daily. The patient's gait is impaired. She says her feet are severely swollen and she doesn't know why. She is upset and crying. The patient says she doesn't want to be at this hospital because she states she wasn't helped the last time she was here. The patient says she hasn't slept since May 13. She says she took a whole bottle of benadryl trying to sleep. She says "I didn't tell the doctor but I also took extra gabapenin." When asked was she suicidal or homicidal, the patient just stares. She then says "I'm depressed and stressed. I guess I was trying to just sleep." She denies hallucinations. PAST PSYCHIATRIC HISTORY: Diagnoses: Bipolar, Schizoaffective, PTSD Suicide attempts or Self-harm behavior: Yes Prior psychiatric hospitalizations: Yes Substance Abuse history: Denies Previous psychiatric medications tried: Gabapentin, Seroquel, Depakote, abilify Outpatient treatment: Denies PAST MEDICAL HISTORY: None reported or document Family Psychiatric History: None reported or documented SOCIAL HISTORY Marital Status: Single Living Arrangements: Homeless Employment Status: unemployed Access to guns/weapons: Denies Education: 11th grade History of Abuse: Denies Legal History: unknown REVIEW OF SYSTEMS Constitutional: Negative for weight loss ENT: Negative for stridor Respiratory: Negative for cough or hemoptysis All other systems reviewed and are negative MENTAL STATUS EXAMINATION General Appearance and Behavior: Age appropriate, good hygiene, wearing appropriate clothes. anxious, cooperative Cooperation: Cooperative Psychomotor Behavior: Psychomotor normal Mood: Depressed, stressed Affect and affective range: congruent with stated mood, tearful Thought Process: goal directed Thought Content: suicidal Speech: normal tone and pace Suicidal Ideation: would not answer Homicidal Ideation: would not answer Hallucinations: Denies Delusions: None elicited Impulse Control: limited Insight and Judgment: Limited Memory: Limited Attention: distracted Orientation: a/o x 3 Assessment (1)Schizoaffective Disorder (2) Polysubstance Abuse Treatment Plan 1013 Abilifty 20mg po daily Zoloft 25mg po daily Trazodone 50mg po qhs The patient to comply with previously prescribed medications Risks, benefits and alternatives of medications discussed with the patient, questions answered and consent obtained from patient. PSYCHOTHERAPY: Supportive psychotherapy provided MEDICAL: Per primary team DELIRIUM PRECAUTIONS: Please re-orient patient frequently, keep lights on during the day, and minimize benzodiazepines and opiates as these medications could worsen patient's confusion. 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 The sitter to give the patient resources and safety plan The patient to comply with treatment regimen and abstain from all illicit drug use. FOLLOW-UP: Will Follow. Case staffed with Dr. Richardson Medications and Allergies Allergies Allergy/AdvReac Type Severity Reaction Status Date / Time Fish Containing Products Allergy Rash Verified 02/22/22 17:36 haloperidol [From Haldol] Allergy Angioedema Verified 02/22/22 17:36 turkey Allergy Rash Verified 02/22/22 17:36 beans Allergy Rash Uncoded 02/22/22 17:36 Home Medications Medication Instructions Recorded Confirmed Last Taken Type AtorvaSTATin [Lipitor] 10 mg PO QHS 03/19/21 02/23/22 Unknown History Bictegrav/Emtricit/Tenofov Ala 1 each PO DAILY 03/19/21 02/23/22 Unknown History [Biktarvy 50-200-25 mg (Nf)] Buprenorphine/Naloxone [Suboxone 2 1 film SL QDAY 03/19/21 02/23/22 Unknown History mg-0.5 mg] Cholecalciferol Vit D3 [Vitamin D3 1,000 unit PO QDAY 03/19/21 02/23/22 Unknown History 1,000 UNIT TAB] Divalproex [Simeon MONTES] 500 mg PO BID 03/19/21 02/23/22 Unknown History Venlafaxine HCl [Effexor Xr] 75 mg PO DAILY 03/19/21 02/23/22 Unknown History Divalproex [Simeon MONTES] 500 mg PO BID 30 Days #60 tablet 06/19/21 02/23/22 Unknown Rx Furosemide [Lasix] 20 mg PO QDAY 02/23/22 02/23/22 Unknown History Gabapentin 800 mg PO TID 02/23/22 02/23/22 Unknown History Metoprolol [Lopressor TAB] 50 mg PO QAM 02/23/22 02/23/22 Unknown History Protonix 40 mg PO QAM 02/23/22 02/23/22 Unknown History diphenhydrAMINE [Benadryl CAP] 50 mg PO TID 02/23/22 02/23/22 Unknown History methOCARBAMOL [Robaxin TAB] 750 mg PO Q6H 02/23/22 02/23/22 Unknown History Mental Status Exam - Vital signs Last Vital Signs Temp 98.3 F 05/18/22 01:06 Pulse 66 05/18/22 07:54 Resp 18 05/18/22 07:54 BP 125/73 05/18/22 07:54 Pulse Ox 100 05/18/22 07:54 Results Result Diagrams: 05/17/22 20:24 05/17/22 20:24 Abnormal lab results 05/17/22 05/17/22 05/18/22 Range/Units 20:24 20:24 00:39 RBC 3.32 L (3.65-5.03) M/mm3 Lymph % (Auto) 46.3 H (13.4-35.0) % [place] % (Auto) 8.9 H (0.0-7.3) % Creatinine 0.5 L (0.6-1.2) mg/dL Albumin 3.7 L (3.9-5) g/dL Salicylates < 0.3 L (2.8-20.0) mg/dL Acetaminophen (10.0-30.0) ug/mL 05/18/22 Range/Units 00:39 RBC (3.65-5.03) M/mm3 Lymph % (Auto) (13.4-35.0) % [place] % (Auto) (0.0-7.3) % Creatinine (0.6-1.2) mg/dL Albumin (3.9-5) g/dL Salicylates (2.8-20.0) mg/dL Acetaminophen 5.0 L (10.0-30.0) ug/mL All other labs normal.
[2022-05-18] MEDS ORDERED: levETIRAcetam 1000 MG/NS 0.75% 1,000 MG/100 ML BAG IV ONE (11:39)
[2022-05-18] MEDS: ARIPiprazole 10 MG TAB PO SCH (12:34)
[2022-05-18] MEDS: SERTRALINE 25 MG TAB PO SCH (12:34)
--- NOTE | 2022-05-18 14:18 | Cat Scan Report ---
CT HEAD WITHOUT CONTRAST INDICATION / CLINICAL INFORMATION: Seizure. TECHNIQUE: Axial imaging performed from the skull apex through the skull base without the use of cont rast. Sagittal and coronal reformatted images. All CT scans at this location are performed using CT dose reduction for ALARA by means of automated exposure control. COMPARISON: 02/22/2022 FINDINGS: CEREBRAL PARENCHYMA: No significant abnormality. No acute territorial infarct. HEMORRHAGE: None. EXTRA-AXIAL SPACES: Normal in size and morphology for the patient's age. VENTRICULAR SYSTEM: Normal in size and morphology for the patient's age. MIDLINE SHIFT OR HERNIATION: None. CEREBELLUM / BRAINSTEM: No significant abnormality. CALVARIUM: No significant abnormality. ORBITS: Normal as visualized. PARANASAL SINUSES / MASTOID AIR CELLS: Normal as visualized. SOFT TISSUES of HEAD: No significant abnormality. ADDITIONAL FINDINGS: None. IMPRESSION: No acute intracranial abnormality. No change since 02/22/2022. Signer Name: David Grace Jr, MD Signed: 05/18/2022 2:14 PM Workstation Name: [id number]
--- NOTE | 2022-05-18 14:29 | Event Note ---
Date: 05/18/22 S: Patient had a witnessed generalized tonic-clonic seizure. Patient states she has not been compliant with her Keppra. Patient loaded with Keppra in the ED and started on Keppra 500 p.o. twice daily O: Vital Signs - 8 hr 05/18/22 07:54 Pulse Rate 66 Respiratory 18 Rate Blood Pressure 125/73 [Right] O2 Sat by Pulse 100 Oximetry A: Benadryl overdose P: Awaiting psych eval
[2022-05-18] MEDS: levETIRAcetam 500 MG TAB PO SCH (21:45)
[2022-05-18] MEDS ORDERED: DOXEPIN 10 MG CAP PO SCH (22:00)
[2022-05-19] MEDS: ARIPiprazole 10 MG TAB PO SCH (10:15)
[2022-05-19] MEDS: levETIRAcetam 500 MG TAB PO SCH (10:15)
[2022-05-19] MEDS: SERTRALINE 25 MG TAB PO SCH (10:15)
--- NOTE | 2022-05-19 10:31 | Progress Note ---
Subjective - Reason for Consult Consult date: 05/19/22 Reason for consult: SI - Chief Complaint Chief complaint: The patient was seen today. She says she is fine, and feels better than yesterday. The patient says she slept well. She denies SI/HI. She says "no, I told you yesterday I was trying to sleep." When asking about hallucinations, the patient says "not right now, but I've heard voices and seen stuff in the past." She says "I told you I don't like this hospital. Can I leave. Don't understand why I'm still here." The patient says she does not take zoloft. She says she takes effexor 150mg. REVIEW OF SYSTEMS Constitutional: Negative for weight loss ENT: Negative for stridor Respiratory: Negative for cough or hemoptysis All other systems reviewed and are negative MENTAL STATUS EXAMINATION General Appearance and Behavior: Age appropriate, good hygiene, wearing appropriate clothes. calm, cooperative Cooperation: Cooperative Psychomotor Behavior: Psychomotor normal Mood: fine, better Affect and affective range: congruent with stated mood Thought Process: goal directed Thought Content: within reality Speech: normal tone and pace Suicidal Ideation: Denies Homicidal Ideation: Denies Hallucinations: Denies Delusions: None elicited Impulse Control: limited Insight and Judgment: Limited Memory: Limited Attention: attentive Orientation: a/o x 3 Assessment (1)Schizoaffective Disorder (2) Polysubstance Abuse Treatment Plan d/c 1013 Abilifty 20mg po daily Zoloft 25mg po daily Trazodone 50mg po qhs The patient to comply with previously prescribed medications Risks, benefits and alternatives of medications discussed with the patient, questions answered and consent obtained from patient. PSYCHOTHERAPY: Supportive psychotherapy provided MEDICAL: Per primary team DELIRIUM PRECAUTIONS: Please re-orient patient frequently, keep lights on during the day, and minimize benzodiazepines and opiates as these medications could worsen patient's confusion. 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 The patient understands that if SI/HI or any fear of endangerment arise she is to seek immediate assistance. The faucets assembler to give the patient resources and safety plan The patient to comply with treatment regimen and abstain from all illicit drug use. FOLLOW-UP: will sign off Case staffed with Dr. Richardson Mental Status Exam - Vital signs Last Vital Signs Temp 98 F 05/19/22 09:56 Pulse 82 05/19/22 09:56 Resp 17 05/19/22 09:56 BP 108/50 05/19/22 09:56 Pulse Ox 100 05/19/22 09:56
--- NOTE | 2022-05-19 11:37 | Emergency Department Report ---
Blank Doc - Documentation Documentation: Patient seen and examined. Vital signs stable patient. came into emergency with having some hallucination. Patient seen by Mitzi brennan today and cleared by psychiatric work-up feels well vital signs are stable.
[2022-05-19 12:52] VITALS: BP 110/54
--- NOTE | 2022-05-20 11:58 | Electrocardiograph Report ---
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
--- NOTE | 2022-05-20 12:08 | Electrocardiograph Report ---
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
== END 2022-05-19 12:51 | disposition still patient (30) ==
LOC: ED 19:07 → EEVIPCON 19:07 → ED 05-19 12:51
DX: T45.0X1A Poisoning by antiallergic and antiemetic drugs, accidental (unintentional), initial encounter (principal); R07.89 Other chest pain; Z20.822 Contact with and (suspected) exposure to COVID-19; J45.909 Unspecified asthma, uncomplicated; F41.9 Anxiety disorder, unspecified; F31.9 Bipolar disorder, unspecified; Z88.8 Allergy status to other drugs, medicaments and biological substances; Z91.013 Allergy to seafood; Z91.018 Allergy to other foods; Z79.899 Other long term (current) drug therapy; Y92.89 Other specified places as the place of occurrence of the external cause
CPT/HCPCS: 36415; 70450; 71045; 80053; 80164; 80307; 81001; 82550; 82553; 83690; 83880; 84484; 84703; 85025; 85610; 86140; 93005; 96365; 96375; 99285; J1940; J1953; J2310; U0003; 80320; G0480; J2060